=== PATIENT | male | born 1935 | race Caucasian/White ===

== ENCOUNTER 2022-12-21 15:41 | Observation (INO) | payer MEDICARE, SELFPAY ==
[2022-12-21] VITALS (9 sets, daily range): BP systolic 173–186; BP diastolic 84–87; PULSE 63–80; RESP 15–20; TEMP 36.2–36.8; O2SAT 94–98; BMI 25.9; BMI 25.2
--- NOTE | 2022-12-21 15:48 | ED.RN ---
Dr. Varma updated on pt denying any sym at this time. No stroke alert called.
--- NOTE | 2022-12-21 16:11 | CT_ITS ---
We are attempting to reach an attending provider to discuss findings. An addendum with communication details will be sent when the communication is complete. INDICATION: Neuro deficit, acute, stroke suspected EXAMINATION: CT BRAIN - CT Head Stroke Protocol W/O Contrast Injection TECHNIQUE: Multiple axial images were obtained of the head without intravenous contrast. A radiation dose optimization technique was used for this scan. IV Contrast dosage and agent: None. COMPARISON: No relevant prior comparison study available FINDINGS: There is no definite acute abnormality. There is diffuse mild symmetric atrophy. There is atrophy of the posterior fossa structures. There is diffuse small vessel ischemic disease of the white matter. There are stable bilateral lacunar infarcts. There is no definite acute infarct. There is no bleed. There is no gross mass, mass effect, or midline shift. There is no acute abnormality of the skull. No fractures. Grossly normal orbits. Grossly normal sinuses. CT/STROKE Brain/Head without Cont IMPRESSION: Chronic age related changes and atrophy. No acute abnormality. Electronically Signed: Tim Ng MD at 17:38 EDT ,
--- NOTE | 2022-12-21 16:11 | EKG12_ITS ---
Test Reason : Blood Pressure : / mmHG Vent. Rate : 077 BPM Atrial Rate : 077 BPM P-R Int : 234 ms QRS Dur : 108 ms QT Int : 356 ms P-R-T Axes : 054 -23 048 degrees QTc Int : 402 ms Sinus rhythm with 1st degree A-V block Minimal voltage criteria for LVH, may be normal variant ( [place] product ) Borderline ECG Confirmed by BRENTON BOLTON, MILAGROS ([id number]), society editor ALMA ARREDONDO ([id number]) on 12/23/2022 1:17:00 PM Referred By: Confirmed By:MILAGROS FARRIS MD
[2022-12-21 16:12] LABS: Bedside Glucose 100 mg/dL (74-106)
--- NOTE | 2022-12-21 16:12 | CT_ITS ---
STUDY: CTA HEAD AND NECK WITH CONTRAST REASON FOR EXAM: Male, 87 years old. Neuro deficit, acute, stroke suspected RADIATION DOSAGE (If Supplied By Facility): CTDIvol = ( 19.98 ) mGy, DLP = ( 705.72 ) mGycm TECHNIQUE: CT angiography was performed with a multi-detector CT scanner. Data acquisition was obtained from the skull base through the vertex following intravenous administration of IV 100mL Isovue-370. MIP images were reconstructed from the axial data set. Post-processing of the angiographic images was performed, with multiplanar reformation and 3D reconstruction. Individualized dose optimization techniques were used for this CT. COMPARISON: No relevant priors. FINDINGS: Normal bilateral petrous carotid arteries. There is calcified plaque formation of the right cavernous carotid artery, with a mild stenosis (less than 50%). There is calcified plaque formation of the left cavernous carotid artery, with a mild stenosis (less than 50%). Normal right A1 segments of the anterior cerebral artery. Normal left A1 segments of the anterior cerebral artery. Normal intact anterior communicating artery (ACOM). Normal bilateral A2 segments of the anterior cerebral arteries. Normal right M1 and M2 segments of the middle cerebral arteries, with a normal M1 bifurcation. Normal left M1 and M2 segments of the middle cerebral arteries, with a normal M1 bifurcation. Normal right posterior communicating artery (PCOM). Normal left posterior communicating artery (PCOM). Normal bilateral vertebral arteries. Normal basilar artery with a normal basilar bifurcation. The visualized bilateral superior cerebellar (SCA) arteries are normal. Normal bilateral P1, P2 and visualized P3 segments of the posterior cerebral arteries. There is no demonstrated aneurysm of the [place]. There is no demonstrated abnormality of the visualized brain. AORTIC ARCH: Normal visualized aortic arch. Normal origins of the brachiocephalic, left common carotid, and left subclavian arteries. RIGHT CAROTID ARTERIES: Normal right common carotid artery (CCA). There is moderate atherosclerotic plaque formation with moderate narrowing of the right carotid bulb. There is mild atherosclerotic plaque formation of the origin of the right internal carotid artery with less than 50% cross sectional diameter stenosis. There is atherosclerotic tortuous elongation of the cervical portion of the right internal carotid artery. Normal origin of the right external carotid artery (ECA). LEFT CAROTID ARTERIES: Normal left common carotid artery (CCA). There is moderate atherosclerotic plaque formation with moderate narrowing of the carotid bulb. There is moderate atherosclerotic plaque formation of the origin of the left internal carotid artery with an estimated stenosis of 50-69% stenosis. There is atherosclerotic tortuous elongation of the cervical portion of the left internal carotid artery. Normal origin of the left external carotid artery (ECA). VERTEBRAL ARTERIES: Normal bilateral vertebral arteries. CT/STROKE CTA Head AND Neck W/Con IMPRESSION: No acute abnormality. No large vessel occlusion. 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 Moderate to marked plaque with moderate grade stenosis of the left ICA. N.B. : The above Results were Read Back by Tim Ng MD to Jose Haney MD, and understanding confirmed on 12/21/2022 17:40:58 (ET). Electronically Signed: Tim Ng MD at 17:41 EDT ,
--- NOTE | 2022-12-21 16:18 | EDS_ITS ---
HPI History of Present Illness Chief Complaint: Numb/Ting Informant: patient Narrative Narrative: Presents after an episode of visual change and then later he had numbness of his left upper extremity. Both of the above symptoms are resolved and he feels completely back to normal. Patient states that a little bit before noon today he had a little bit of blurring in both of his vision. He has glaucoma on the right and a cataract in his left. He states he gets episodes of this blurry vision pretty much every day. It lasts for 10 or 15 minutes. It may be related to a rise in blood sugar after eating. He states this was the same as every other day. However, approximately 230 this afternoon he just felt a tingling sensation in his body. There was no pain or trouble breathing. He noticed his left arm really had lost most of its sensation. His right arm was fine. And both legs were fine. He states he can move his left arm but it did not have normal sensation. He thinks that lasted about 20 or so minutes maybe 30 but he is not 100% sure when it started. But he states it is gone now and back to normal. He has had a TIA about 5 years ago. He was on baby aspirin for a long time but he has been off of it for about 6 months. He is on amlodipine for blood pressure. He is on terazosin. He is diet controlled diabetic. Not check his blood sugars. [facility] Medical History Diabetes Glaucoma HTN (hypertension) TIA (transient ischemic attack) Umbilical hernia Home Medications amlodipine 5 mg tablet 5 mg PO DAILY 01/26/15 [History Last Taken 02/02/15 06:00] terazosin 2 mg capsule 2 mg PO QHS 01/26/15 [History Last Taken Unknown] multivitamin,ln-kham-nseqibwz 27 mg-0.4 mg tablet (Therems-M) 1 tab PO DAILY 02/02/15 [History Last Taken Unknown] Allergy/AdvReac Type Severity Reaction Status Date / Time No Known Allergies Allergy Verified 12/21/22 15:43 Family History no significant family his Surgical History H/O hernia repair H/O vein stripping Hx of cholecystectomy Social History household members: spouse housing: house Smoking Status: Former smoker ROS ROS ED Constitutional Constitutional ED: Denies chills, fever(s) or subjective Eyes Eyes: Reports blurry vision; Denies change in vision or diplopia ENT ENT ED: Denies rhinorrhea Cardiovascular Cardiovascular: Denies chest pain, palpitations or racing heartbeat Respiratory/Chest Respiratory/Chest: Denies cough or dyspnea Gastrointestinal Gastrointestinal: Denies nausea or vomiting Genitourinary Genitourinary ED: Denies hematuria Musculoskeletal Musculoskeletal: Denies back pain or neck pain Integumentary Denies rash Neurologic Neurologic: Reports paresthesias; Denies headache(s) or weakness Endocrine Endocrinology: Denies polydipsia or polyuria Hematologic/Lymphatic Hematologic/Lymphatic: Denies easy bleeding or easy bruising Allergic/Immunologic Allergic/Immunologic ED: Denies urticaria EXAM Physical Exam Narrative Exam Narrative: CONSTITUTIONAL: Patient is nontoxic in appearance. The patient looks comfortable. Work of breathing looks normal. He is mildly hard of hearing. He is sitting comfortably on the bed and very interactive. HEENT: No notable trauma. Mucous membranes moist. No sinus tenderness. 3. He can smile and closes eyes normally. EYES: No conjunctival injection. No proptosis. No pain with range of motion. No pallor. Mostly his visual mares are normal. NECK: No meningismus. No JVD. Hear carotid bruit on either side. CARDIOVASCULAR: Regular rate. Regular rhythm. I hear no notable murmur. No JVD. RESPIRATORY: No respiratory distress. Breathing is unlabored. No wheezes. No rhonchi. No rales. No pain with a deep breath. Saturations are normal at 97% on room air showing no hypoxia. GASTROINTESTINAL: Not distended. Bowel sounds are normal. No tenderness. No guarding. No rebound. No palpable mass. No bruit. GENITOURINARY: No tenderness over the bladder. No CVA tenderness. MUSCULOSKELETAL: Atraumatic. No peripheral edema. No cord. No tenderness along the deep venous system. No asymmetry. NEUROLOGICAL: Patient is alert and oriented. No focal deficit noted. NIH stroke scale is 0. Patient holds both arms up with excellent strength. He can hold either leg up very high in the area without any difficulty. I get no sensory changes or asymmetry at this time. His exam is really normal. But his symptoms are also resolved. SKIN: No noted rashes. No diaphoresis. No vesicles noted. No notable pallor. PSYCHIATRIC: Patient is calm. Mood is appropriate. Const Vital Signs: 12/21/22 15:43 12/21/22 15:50 12/21/22 16:15 Temperature 97.2 F L Temperature Source Temporal Pulse Rate 79 80 Respiratory Rate 18 15 Blood Pressure 173/84 H Blood Pressure Mean 113 Pulse Ox 97 97 97 Oxygen Delivery Method Room Air Room Air Room Air 12/21/22 16:42 12/21/22 17:00 Temperature Temperature Source Pulse Rate 68 72 Respiratory Rate 16 18 Blood Pressure Blood Pressure Mean Pulse Ox 98 97 Oxygen Delivery Method Room Air Room Air MDM MDM MDM Narrative Medical decision making narrative: Patient CBC is normal. Patient's electrolytes are normal. Patient's troponin is negative. Patient's glucose was also normal. My independent interpretation of his CT shows no acute stroke but there are age- related changes. This is read as negative for acute process by radiology. Patient CTA is negative for acute process by radiology. Single view chest x-ray interpreted by me shows nothing acute and this is consistent with final reading. This patient is resolved now. But he has a history of high blood pressure, diet-controlled diabetes and age. He has had prior TIA. He is now off aspirin. He had what sounds like a TIA with transient left upper extremity numbness. I think his visual changes were his chronic changes. I have hospitalist on page to discuss admission. Although this patient is older and has had some of the symptoms it has been many years. And he is overall a very healthy and active 87-year-old male who could benefit from further therapy if needed. Lab Data Attestation: I reviewed the patient's lab results. Labs: Laboratory Results - last 24 hr 12/21/22 12/21/22 15:53 15:55 WBC 5.1 RBC 5.31 Hgb 16.0 Hct 46.7 MCV 87.9 MCH 30.1 MCHC 34.3 RDW Std Deviation 42.0 RDW Coeff of Jesus 12.9 Plt Count 151 MPV 9.6 Immature Gran % (Auto) 0.600 Neut % (Auto) 67.1 Lymph % (Auto) 21.1 [place] % (Auto) 9.6 Eos % (Auto) 0.8 Baso % (Auto) 0.8 Absolute Neuts (auto) 3.4 Absolute Lymphs (auto) 1.08 Nucleated RBC % 0 PT 13.5 INR 1.0 APTT 32.2 Sodium 136 Potassium 4.0 Chloride 104 Carbon Dioxide 26.0 Anion Gap 6 BUN 17 Creatinine 1.26 Estim Creat Clear Calc 43.45 Est GFR (MDRD) Af Amer 70 Est GFR (MDRD) Non-Af 58 L BUN/Creatinine Ratio 13.5 Glucose 93 Calcium 9.0 Troponin I High Sens 6 POC Glucose 100 Radiography Diagnostic Testing: Clinical Impression(s) from Imaging Studies Brain CT 12/21/22 16:11 IMPRESSION: Chronic age related changes and atrophy. No acute abnormality. Electronically Signed: Tim Ng MD at 17:38 EDT Reading Location ID and State: [address] [place] [address] , Service support , ADDENDUM: 12/21/22 1747 IMPRESSION: Chronic age related changes and atrophy. No acute abnormality. N.B. : The above Results were Read Back by Tim Ng MD to Jose Haney MD, and understanding confirmed on 12/21/2022 17:41:04 (ET). Electronically Signed: Tim Ng MD at 17:38 EDT Reading Location ID and State: [address] [place] [address] , Service support , Head/Neck CTA 12/21/22 16:12 IMPRESSION: No acute abnormality. No large vessel occlusion. 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 Moderate to marked plaque with moderate grade stenosis of the left ICA. N.B. : The above Results were Read Back by Tim Ng MD to Jose Haney MD, and understanding confirmed on 12/21/2022 17:40:58 (ET). Electronically Signed: Tim Ng MD at 17:41 EDT Reading Location ID and State: [facility] / [place] , Service support , ADDENDUM: 12/21/22 1748 IMPRESSION: No acute abnormality. No large vessel occlusion. 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 Moderate to marked plaque with moderate grade stenosis of the left ICA. N.B. : The above Results were Read Back by Tim Ng MD to Jose Haney MD, and understanding confirmed on 12/21/2022 17:40:58 (ET). Electronically Signed: Tim Ng MD at 17:41 EDT , Chest X-Ray 12/21/22 17:00 IMPRESSION: No definite acute or significant abnormality seen. Electronically Signed: Tim Ng MD at 17:15 EDT , EKG Initial EKG: Comments: Plan up and interpretation the patient's EKG shows a normal sinus rhythm with first-degree AV block. Mild baseline variation but no ectopy. No acute ST elevation or depression. There may be a component of LVH. GA interval is long. QRS duration and QTc are normal. Discharge Plan Dx/Rx/DC Orders Clinical Impression: History of diet-controlled diabetes, Brain TIA, History of hypertension, History of TIAs Disposition Disposition: Acute Care Hospital [facility]
[2022-12-21 16:27] LABS: Absolute Lymphocyte Count 1.08 X10^3/uL (0.83-4.51); Absolute Neutrophil Count 3.4 X10^3/uL (2.0-7.7); Basophil# 0.04 X10^3/uL; Basophil% 0.8 % (0-1); Eosinophil# 0.04 X10^3/uL; Eosinophils% 0.8 % (0-5); Hematocrit 46.7 % (40-54); Lymphocyte # 1.08 X10^3/ul (0.83-4.51); Lymphocyte % 21.1 % (19-41); Mean Corp Hgb Conc 34.3 g/dL (32-36); Mean Corpuscular Hgb 30.1 pg (27.0-32.0); Mean Corpuscular Volume 87.9 fL (80-94); Mean Platelet Vol. 9.6 fl (6.2-12.0); Monocyte# 0.49 X10^3/uL; Monocyte% 9.6 % (0-10); NRBC Flagged by Analyzer 0 % (0-5); Neutrophil # 3.43 X10^3/uL (2.7-7.7); Neutrophil % 67.1 % (47-70); Platelet Count 151 K/mm3 (150-450); RBC Distribution Width CV 12.9 % (11.6-14.6); Red Blood Count 5.31 M/mm3 (4.6-6.2); White Blood Count 5.1 K/mm3 (4.4-11.0)
[2022-12-21 16:31] LABS: Partial Thromboplast Time 32.2 Seconds (24.1-36.2); Prothrombin Time (Protime)PT. 13.5 SECONDS (11.7-14.9)
[2022-12-21 16:45] LABS: Anion Gap 6 (5-15); BUN 17 mg/dL (7-18); BUN/Creat Ratio 13.5 RATIO (10-20); Chloride 104 mmol/L (98-107); Creatinine, Serum 1.26 mg/dL (0.70-1.30); EST Glomerular Filtration Rate 58 mL/min (>60); Est Glom Filt Rate - Afr Amer 70 mL/min (>60); Estimated Creatinine Clearance 43.45 ml/min; Glucose 93 mg/dL (74-106); Sodium Level 136 mmol/L (136-145); Troponin-I HS 6 pg/mL (3.0-78.0)
--- NOTE | 2022-12-21 17:00 | RAD_ITS ---
STUDY: X-RAY CHEST REASON FOR EXAM: Male, 87 years old. Neuro deficit, acute, stroke suspected TECHNIQUE: Single AP portable view of the chest. COMPARISON: None. FINDINGS: The lungs are clear and expanded. There is no demonstrated pleural abnormality. Normal size heart. There are calcified mediastinal lymph nodes. Normal visualized pulmonary arteries. There is atherosclerotic calcification of the aortic arch with tortuosity. Normal visualized thoracic spine. Normal visualized ribs, clavicles, and shoulders. There is no demonstrated abnormality of the visualized soft tissue structures of the upper abdomen. RAD/Chest 1 View IMPRESSION: No definite acute or significant abnormality seen. Electronically Signed: Tim Ng MD at 17:15 EDT ,
--- NOTE | 2022-12-21 19:09 | HP.PCM.HOS_ITS ---
HPI - General General Date of Admission: 12/21/22 Date of Service: 12/21/22 Chief Complaint: Chronic visions issues, but new onset LUE paresthesias, resolved now. HPI Narrative The patient is an 87 y/o M w/ PMHx: AIMEE unable to tolerate CPAP, Former tobacco use, HTN, HLD, Hx TIA, Diet controlled Diabetes mellitus type II who presents to the [facility] ED on 12/21/22 with history of episode of visual changes which resolved within onset later paresthesias to the left upper extremity described as numbness which itself also resolved with description of at approximately noon onset of mild blurring of his vision in both eyes with history of glaucoma on the right and a cataract in his left with episodes of blurry vision pretty much daily however this lasted 10 to 15 minutes and he is concerned maybe it was related with a rise in his blood sugar after eating however he did have then onset which is new for him at approximately 2:30 in the afternoon a tingling sensation in his body with left upper extremity decree sensation with ability to move his left arm but the sensation was abnormal with no other focal changes lasting about 20 to 30 minutes and eventually resolved with back to his normal baseline reportedly off a baby aspirin for at least 6 months but compliant with his blood pressure medications but not checking blood sugars prompting eventual ED evaluation. Work-up in the ED included T97.2, heart rate 79, BP 173/84, respiratory rate 18, 97% on room air, CBC with WC 5.1, and 116, platelet 151 without marked shift, unremarkable coags, BMP not marked appearing, troponin 6, CT of the brain with chronic age related changes and atrophy with no acute intracranial findings, CTA head and neck with no acute abnormality nor any large vessel occlusion, moderate plaque with mild grade stenosis of the right ICA, moderate to marked plaque with moderate grade stenosis of the left ICA, chest x- ray with no acute cardiopulmonary findings, EKG with sinus rhythm with first- degree AV block with no acute evidence of ischemia. In the ED per discussion with ED physician patient administered FS ASA. [facility] Medical History (Updated 12/21/22 @ 19:[address] Calrita Em MD) Former tobacco use Glaucoma History of diet-controlled diabetes HLD (hyperlipidemia) HTN (hypertension) AIMEE (obstructive sleep apnea) TIA (transient ischemic attack) Umbilical hernia Home Medications amlodipine 5 mg tablet 5 mg PO DAILY 01/26/15 [History Last Taken 02/02/15 06:00] terazosin 2 mg capsule 2 mg PO QHS 01/26/15 [History Last Taken Unknown] multivitamin,[id number] 27 mg-0.4 mg tablet (Therems-M) 1 tab PO DAILY 02/02/15 [History Last Taken Unknown] Allergy/AdvReac Type Severity Reaction Status Date / Time No Known Allergies Allergy Verified 12/21/22 15:43 Family History (Updated 12/21/22 @ 19:[address] Carlita Em MD) Mother Hypertension Diabetes Uterine cancer Brother CAD (coronary artery disease) Heart disease Hypertension Family History no significant family his other (Patient did not know his father nor his paternal medical history.) Surgical History (Updated 12/21/22 @ 19:[address] Carlita Em MD) H/O hernia repair H/O vein stripping History of skin surgery Hx of cholecystectomy Social History (Updated 12/21/22 @ 19:[address] Carlita Em MD) household members: none housing: house Smoking Status: Former smoker how long ago did patient quit smokin04/17/1968 alcohol intake: never substance use type: does not use ROS ROS Narrative Admission Review of Systems: CONSTITUTIONAL: No weight loss, fever, chills, weakness or fatigue. HEENT: + Chronic vision changes/blurry vision. Eyes: No double vision or yellow sclerae. Ears, Nose, Throat: No hearing loss, sneezing, congestion, runny nose or sore throat. SKIN: No rash or itching, lesions, wounds. CARDIOVASCULAR: No chest pain, chest pressure or chest discomfort, palpitations, edema, orthopnea, syncopal events. RESPIRATORY: No shortness of breath, cough or sputum, wheezing, hemoptysis. GASTROINTESTINAL: No anorexia, nausea, vomiting or diarrhea, abdominal pain, melena, BRBPR. GENITOURINARY: No dysuria, frequency, urgency or retention. NEUROLOGICAL: + Transient LUE paresthesias/numbness. No headache, dizziness, syncope, paralysis, ataxia, focal weakness, change in bowel or bladder control, seizure. MUSCULOSKELETAL: + muscle, back pain, joint pain or stiffness. HEMATOLOGIC: + Easy bleeding or bruising. LYMPHATICS: No enlarged nodes. No history of splenectomy. PSYCHIATRIC: No history of depression or anxiety. ENDOCRINOLOGIC: No reports of sweating, cold or heat intolerance. No polyuria or polydipsia. ALLERGIES: No history of asthma, hives, eczema or rhinitis. Vital Signs Vital Signs Vital Signs: 12/21/22 15:43 12/21/22 15:50 12/21/22 16:15 Temperature 97.2 F L Temperature Source Temporal Pulse Rate 79 80 Respiratory Rate 18 15 Blood Pressure 173/84 H Blood Pressure Mean 113 Pulse Ox 97 97 97 Oxygen Delivery Method Room Air Room Air Room Air 12/21/22 16:42 12/21/22 17:00 Temperature Temperature Source Pulse Rate 68 72 Respiratory Rate 16 18 Blood Pressure Blood Pressure Mean Pulse Ox 98 97 Oxygen Delivery Method Room Air Room Air Weight Weight: 180 lb 14.4 oz Body Mass Index (BMI) 25.9 Physical Exam Narrative Physical Examination: General: Awake, alert, oriented x 3 and cooperative, seated upright in the ED bed in no apparent distress, reports that he is back to his normal still. Skin: Normal color, normal turgor, no icterus, no cyanosis except occasional st aged ecchymoses and changes from sun exposure. HEENT: AT/NC, EOMI, PERRLA, mildly dry MM, no carotid bruits or JVD noted. Lungs: CTA bilaterally, moderate effort, mild decrease BL bases, no rales, ro nchi or wheezing. Heart: Regular rate and rhythm; no gallop, rub audible. Abdomen: Soft, ventral hernia present but reducible, NTTP, ND, normal BS, no obvious evidence of HSM. Extremities: No cyanosis, clubbing, or edema. Neurological: Patient awake, alert, oriented as noted, cognitive function inta ct; pupils equally reactive to light and accommodation, cranial nerves grossly normal, moving all 4 extremities, sensation appropriate and equivalent bilaterally, no focal deficits, strength preserved, finger-nose and [id number] appropriate, equivocal Babinski. Psychiatric: Affect appears normal, talkative, no acute evidence of depressive or anxiety feelings. Results Lab / Micro Data 12/21/22 15:55 12/21/22 15:55 Labs: Laboratory Results - last 24 hr 12/21/22 15:53: POC Glucose 100 12/21/22 15:55: WBC 5.1, RBC 5.31, Hgb 16.0, Hct 46.7, MCV 87.9, MCH 30.1, MCHC 34.3, RDW Std Deviation 42.0, RDW Coeff of Jesus 12.9, Plt Count 151, MPV 9.6, Immature Gran % (Auto) 0.600, Neut % (Auto) 67.1, Lymph % (Auto) 21.1, Grady % (Auto) 9.6, Eos % (Auto) 0.8, Baso % (Auto) 0.8, Absolute Neuts (auto) 3.4, Abso lute Lymphs (auto) 1.08, Nucleated RBC % 0, PT 13.5, INR 1.0, APTT 32.2, Sodium 136, Potassium 4.0, Chloride 104, Carbon Dioxide 26.0, Anion Gap 6, BUN 17, Creatinine 1.26, Estim Creat Clear Calc 43.45, Est GFR (MDRD) Af Amer 70, Est GFR (MDRD) Non-Af 58 L, BUN/Creatinine Ratio 13.5, Glucose 93, Calcium 9.0, Troponin I High Sens [address] 12/21/22 16:11 IMPRESSION: Chronic age related changes and atrophy. No acute abnormality. Electronically Signed: Tim Ng MD at 17:38 EDT , ADDENDUM: 12/21/22 1747 IMPRESSION: Chronic age related changes and atrophy. No acute abnormality. N.B. : The above Results were Read Back by Tim Ng MD to Jose Haney MD, and understanding confirmed on 12/21/2022 17:41:04 (ET). Electronically Signed: Tim Ng MD at 17:38 EDT , Head/Neck CTA 12/21/22 16:12 IMPRESSION: No acute abnormality. No large vessel occlusion. 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 Moderate to marked plaque with moderate grade stenosis of the left ICA. N.B. : The above Results were Read Back by Tim Ng MD to Jose Haney MD, and understanding confirmed on 12/21/2022 17:40:58 (ET). Electronically Signed: Tim Ng MD at 17:41 EDT , ADDENDUM: 12/21/22 1748 IMPRESSION: No acute abnormality. No large vessel occlusion. 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 Moderate to marked plaque with moderate grade stenosis of the left ICA. N.B. : The above Results were Read Back by Tim Ng MD to Jose Haney MD, and understanding confirmed on 12/21/2022 17:40:58 (ET). Electronically Signed: Tim Ng MD at 17:41 EDT , Chest X-Ray 12/21/22 17:00 IMPRESSION: No definite acute or significant abnormality seen. Electronically Signed: Tim Ng MD at 17:15 EDT , Assessment & Plan Assessment/Plan (1) Brain TIA: PLAN: Plan The patient is an 87 y/o M w/ PMHx: AIMEE unable to tolerate CPAP, Former tobacco use, HTN, Hx TIA, Diet controlled Diabetes mellitus type II who presents to the [facility] ED on 12/21/22 with history of episode of visual changes which resolved within onset later paresthesias to the left upper extremity described as numbness which itself also resolved. #1. Transient left upper extremity paresthesias, chronic vision blurriness with right eye glaucoma and cataract in the left unchanged but concerning for recurrent TIA, resolved with noted BL carotid disease: Will admit to PCU, will obtain MRI Brain, ECHO, PT/OT/Speech/Nutrition evaluation per protocol. Will allow permissive HTN, maintain on asa with FS aspirin administered in the ED per discussion with ED physician, initiate at least low to moderate statin w/ AM FLP, fall precautions. Will request carotid US to further assess and if notable request potentially inpatient consultation with Vascular surgery versus early outpatient follow-up to assure addressed. Will obtain Mag, TSH, FLP, HgbA1c requested. Maintain on fall and aspiration precautions. #2. Hypertension: Given presentation as noted we will maintain permissive hyper tension with parent agents per stroke protocol. #3. Diabetes mellitus type II, diet controlled: Not on regimen but diet controlled, hemo-A1c requested, nutrition consultation for education and teach ing, ADA diet, accu checks w/ ISS. #4. Former tobacco use: Encourage continued tobacco cessation. #5. Hyperlipidemia not on statin, will add at least moderate dose given presentation and history, FLP in AM. #6. AIMEE: Previous trial of CPAP, unable to tolerate per his report. #7. DVT prophylaxis: Lovenox. #8. CODE status: Patient MARGUERITE is his son Bakari Molina and living will is currently in place. Discussed CODE status at length including difference between FULL code, DNR-CCA and DNR-CC status. Following discussions about the differences in these status, requested DNR-CCA, no intubation status. Advanced Care Planning Face to Face Time: 16 minutes. Charges/Coding Visit Charges Inpatient E&M: 77872 Init Hosp L2 Procedures Hospitalists Procedures: 34804 Advncd Care Plan 30 Min
[2022-12-21 19:30] LABS: Magnesium 2.5 mg/dL (1.6-2.6)
[2022-12-21] MEDS: Aspirin 325 MG Tablet PO (19:55)
--- NOTE | 2022-12-21 20:13 | CDU_ITS ---
Reason For Study: CVA with carotid stenosis Rt. Velocities/BP Lt. Velocities/BP Prox CCA 91.9/9.7 cm/sec. Prox CCA 77.8/7.8 cm/sec. Mid CCA 72.1/9.7 cm/sec. Mid CCA 85.3/11.6 cm/sec. Dist CCA 71.1/9.7 cm/sec. Dist CCA 74.0/8.8 cm/sec. Prox ICA 48.5/7.8 cm/sec. Prox ICA 74.9/9.7 cm/sec. Mid ICA 72.1/13.5 cm/sec. Mid ICA 70.5/9.8 cm/sec. Dist ICA 63.6/14.5 cm/sec. Dist ICA 49.9/9.2 cm/sec. Rt. ICA/CCA = 1.0. Lt. ICA/CCA = .9. Prox ECA 93.8/5.0 cm/sec. Prox ECA 155.7/9.2 cm/sec. Rt. Vert. 57.9/6.0 cm/sec. Lt. Vert. 54.1/7.8 cm/sec. Right Extracranial There is heterogeneous, irregular atherosclerotic plaque noted in the right common carotid artery. There is heterogeneous, irregular atherosclerotic plaque noted in the right internal carotid artery. The right internal carotid artery is very tortuous. There is heterogeneous, irregular atherosclerotic plaque noted in the right external carotid artery. Antegrade flow is noted in the right vertebral artery. Left Extracranial There is heterogeneous, irregular atherosclerotic plaque noted in the left common carotid artery. There is heterogeneous, irregular atherosclerotic plaque noted in the left internal carotid artery. The left internal carotid artery is very tortuous. There is heterogeneous, irregular atherosclerotic plaque noted in the left external carotid artery. Antegrade flow is noted in the left vertebral artery. Procedure Carotid Duplex 36974. This is a Carotid Duplex examination using B-mode, color flow and specral Doppler. The exam was diagnostic. Exam performed portable in patient room. VL/Carotid Duplex Ultrasound Interpretation Summary Mild (<50%) stenosis right extracranial internal carotid. Mild (<50%) stenosis left extracranial internal carotid. Patent and antegrade vertebrals bilaterally. Ordering Physician: Carlita Em Performed By: Power Zamorano RVT
--- NOTE | 2022-12-21 20:13 | ECHOD_ITS ---
Reason For Study: TIA/CVA Procedure This was a 2D Doppler, Color Flow transthoracic echocardiogram. Exam performed portable in patient room. Left Ventricle Normal left ventricle. The estimated ejection fraction is 55-60 %. Right Ventricle Normal right ventricle. Normal systolic function. Atria Normal left atrium. Normal right atrium. Mitral Valve There is moderate mitral annular calcification. Trivial mitral valve insufficiency. Tricuspid Valve Normal tricuspid valve. Aortic Valve Mild diffuse aortic valve calcification. Pulmonic Valve The pulmonic valve is not well visualized. Great Vessels Normal aortic root. Pericardium/Pleural No pericardial effusion. Medication Performed a rapid injection of agitated mix of 9 cc saline and 1cc air to assess for atrial septal defect. MMode/2D Measurements & Calculations LVIDd: 4.2 cm IVSd: 1.4 cm Ao root diam: 3.1 cm LVIDs: 2.6 cm LVPWd: 1.1 cm RVDd: 2.9 cm FS: 37.6 % LAV(MOD-bp): 37.8 ml LA A4 area: 13.3 cm2 LA dimension(2D): 3.5 cm LAV(MOD-bp) Indexed: 18.9 ml/m2 LAV(MOD-sp2): 38.4 ml LAV(MOD-sp4): 30.8 ml RA A4 area: 16.0 cm2 Time Measurements MV dec time: 0.27 sec Doppler Measurements & Calculations MV E max pedro: 63.3 cm/sec Lat Peak E' Pedro: 9.3 cm/sec Med Peak E' Pedro: 5.1 cm/sec MV A max pedro: 92.5 cm/sec E/E' lat: 6.8 E/E' med: 12.4 MV E/A: 0.68 MV V2 max: 95.0 cm/sec MV dec slope: 235.2 cm/sec2 Ao V2 max: 130.4 cm/sec MV max P.6 mmHg Ao max P.8 mmHg MV V2 mean: 51.7 cm/sec Ao V2 mean: 90.2 cm/sec MV mean P.3 mmHg Ao mean P.7 mmHg MV V2 VTI: 27.2 cm Ao V2 VTI: 31.9 cm AV (velocity ratio): 0.67 LV V1 max: 80.9 cm/sec PA V2 max: 110.1 cm/sec LV V1 max P.6 mmHg LV V1 mean P.6 mmHg LV V1 mean: 60.0 cm/sec LV V1 VTI: 21.2 cm ECHO/Echo Complete Interpretation Summary The estimated ejection fraction is 55-60 %. Normal LV systolic function No prior study to compare Ordering Physician: Carlita Em Referring Physician: Cholo Friedman Performed By: Larisa Guzman, MIGUELINA, RVT
[2022-12-21] MEDS: 0.9% Normal Saline 1,000 ML 100 ML IV (21:01)
[2022-12-21] MEDS: 0.9% Saline Lock 10 ML Syringe IV (21:01)
[2022-12-21] MEDS: Atorvastatin Calcium 40 MG Tablet PO (22:18)
[2022-12-21 23:53] LABS: Bedside Glucose 117 mg/dL (74-106)
[2022-12-22] VITALS (7 sets, daily range): BP systolic 159–191; BP diastolic 79–87; PULSE 58–66; RESP 16–17; TEMP 36.1–36.9; O2SAT 95–98; BMI 25.2; BMI 25.1
[2022-12-22 06:18] LABS: Absolute Lymphocyte Count 0.93 X10^3/uL (0.83-4.51); Absolute Neutrophil Count 2.7 X10^3/uL (2.0-7.7); Basophil# 0.03 X10^3/uL; Basophil% 0.7 % (0-1); Eosinophil# 0.09 X10^3/uL; Eosinophils% 2.1 % (0-5); Hematocrit 44.9 % (40-54); Hemoglobin 14.9 g/dL (13.0-16.5); Lymphocyte # 0.93 X10^3/ul (0.83-4.51); Lymphocyte % 21.6 % (19-41); Mean Corp Hgb Conc 33.2 g/dL (32-36); Mean Corpuscular Hgb 29.3 pg (27.0-32.0); Mean Corpuscular Volume 88.4 fL (80-94); Mean Platelet Vol. 9.4 fl (6.2-12.0); Monocyte# 0.53 X10^3/uL; Monocyte% 12.3 % (0-10); NRBC Flagged by Analyzer 0 % (0-5); Neutrophil # 2.69 X10^3/uL (2.7-7.7); Neutrophil % 62.6 % (47-70); Platelet Count 150 K/mm3 (150-450); RBC Distribution Width CV 12.7 % (11.6-14.6); RBC Distribution Width SD 41.5 fl (35.1-43.9); Red Blood Count 5.08 M/mm3 (4.6-6.2); White Blood Count 4.3 K/mm3 (4.4-11.0)
[2022-12-22 06:56] LABS: ALB/GLOB Ratio 1.2 RATIO (0.9-2.4); AST(SGOT) 14 U/L (15-37); Alanine Aminotransfer ALT/SGPT 21 U/L (16-61); Albumin, Serum 3.3 g/dL (3.2-5.0); Alkaline Phosphatase 61 U/L (45-117); Anion Gap 3 (5-15); BUN 14 mg/dL (7-18); BUN/Creat Ratio 12.3 RATIO (10-20); Calcium,Total 8.4 mg/dL (8.5-10.1); Chloride 108 mmol/L (98-107); Cholesterol 162 mg/dL (200); Creatinine, Serum 1.14 mg/dL (0.70-1.30); EST Glomerular Filtration Rate 65 mL/min (>60); Est Glom Filt Rate - Afr Amer 78 mL/min (>60); Estimated Creatinine Clearance 48.03 ml/min; Globulin 2.8 g/dL (2.2-4.2); Glucose 104 mg/dL (74-106); High Density Lipoprotein 38 mg/dL; Potassium 3.9 mmol/L (3.5-5.1); Protein, Total 6.1 g/dL (6.4-8.2); Sodium Level 141 mmol/L (136-145); Thyroid Stim Hormone (TSH) 1.38 uIU/mL (0.358-3.74); Triglycerides 101 mg/dL; Very Low Density Lipoprotein 20 mg/dL (5-40)
[2022-12-22 07:53] LABS: Bedside Glucose 113 mg/dL (74-106)
[2022-12-22 08:13] LABS: Hemoglobin A1c 5.7 % (3.8-5.6)
--- NOTE | 2022-12-22 09:00 | MRI_ITS ---
EXAM: MR HEAD WITHOUT INTRAVENOUS CONTRAST CLINICAL INDICATION: CVA TECHNIQUE: Multiplanar and multisequence MR images of the brain were obtained without intravenous contrast. COMPARISON: CT head without contrast and CTA head and neck with contrast 12/21/2022. FINDINGS: BRAIN AND EXTRA-AXIAL SPACES: Multiple T2 FLAIR hyperintensity foci in the white matter of both cerebral hemispheres are chronic white matter ischemic changes. No intra- or extra-axial hemorrhage. No intracranial mass or mass effect. Posterior fossa structures are unremarkable. Ventricles are appropriate for age. No hydrocephalus. Basal cisterns are patent. No diffusion restriction to suspect acute or subacute ischemic infarct. No remote cortical-based ischemic infarct. SELLA: Unremarkable. Normal sella turcica, pituitary gland, infundibular stalk, optic chiasm and hypothalamus. AUDITORY SYSTEM: Unremarkable. The internal auditory canals are patent. BONES/JOINTS: Unremarkable. No discrete lytic or blastic abnormalities. SINUSES: Unremarkable as visualized. Clear. MASTOID AIR CELLS: Unremarkable as visualized. Clear. ORBITS: Unremarkable as visualized. Both globes, extraocular muscles, optic nerves and retrobulbar fat appear unremarkable. VASCULATURE: Unremarkable as visualized. Normal flow voids in the major intracranial circulation. MRI/Brain without Contrast IMPRESSION: 1. No MRI evidence of acute or subacute ischemic infarct or remote ischemic infarct. 2. Multiple chronic white matter ischemic changes in both cerebral hemispheres. Electronically Signed: John Dumas MD at 10:18 EDT ,
[2022-12-22] MEDS: amLODIPine 5 MG Tablet PO (11:38)
[2022-12-22] MEDS: Enoxaparin 40 MG/0.4 ML Syringe SC (11:38)
--- NOTE | 2022-12-22 12:06 | CHAPLAIN ---
Type of Pastoral Visit _x__ Initial Visit ___ Follow-up Visit ___ On-call Visit ___ General Patient Visit ___ Spiritual Assessment ___ Family Conference ___ Bereavement ___ Rapid Response ___ Code Blue ___ Other (describe below) Pastoral Care Referral From _x__ Patient ___ Family ___ Nurse ___ Physician ___ Hog Ribber ___ Aircraft Instrument Mechanic ___ Other (describe below) Sacrament/Intervention ___ Active listening ___ Anointing ___ Buddhism ___ Bereavement ___ Communion ___ Joanie exploration ___ ___ Life review ___ Prayer ___ Reconciliation ___ Sacrament of Sick _x__ Supportive presence ___ Wedding ___ Other (describe below) Pastoral Comments brief introduction to patient with explanation of role when three consecutive staff members came into room; therefore visit is halted due to others seeking time with patient
[2022-12-22 12:13] LABS: Bedside Glucose 100 mg/dL (74-106)
[2022-12-22] MEDS: Aspirin 81 MG TAB.CHEW PO (12:40)
--- NOTE | 2022-12-22 13:01 | CASEMGMT ---
SW completed a PHQ9 with patient as he may have had a TIA. Patient scored a 0 which indicates no depression. Patient declined any need for counseling resources. Eileen SCHROEDER
--- NOTE | 2022-12-22 16:12 | DCINST_ITS ---
Discharge Instructions Diet Discharge Diet: No restrictions Activity Discharge Activity: Return to Normal Activity Weight Bearing Status: Full weight bearing Follow Up Care Please Follow Up With: Cholo Friedman MD When: As needed Test Results: Test results from this visit will be discussed in further detail at your follow- up appointment, if applicable. Pending Tests Upon Discharge: None Discharge Plan Admission Admit Date/Time: 12/21/22 19:11 Primary Reason for Your Visit: Vision changes, CVA rule out Attending Provider: Tray Guevara Primary Care Provider: Cholo Friedman Consulting Providers: Carlita Em Instructions Additional Instructions / Restrictions: Please start taking aspirin daily and atorvastatin daily for stroke prevention. Follow-up with your primary care provider in the next 1 to 2 weeks. Follow-up with your event security officer as needed. Discharge Orders/Prescriptions Prescriptions: New atorvastatin 40 mg Tablet 40 mg PO QHS 30 Days Qty: 30 0RF aspirin 81 mg Tablet,Chewable 81 mg PO BREAKFAST 30 Days Qty: 30 0RF Continued amlodipine 5 MG tablet 5 mg PO DAILY Patient Comments: BLOOD PRESSURE terazosin 2 MG capsule 2 mg PO QHS Patient Comments: BLOOD PRESSURE Therems-M 1 TABLET tablet 1 tab PO DAILY Patient Comments: SUPPLEMENT Referrals / Follow Up: Cholo rFiedman MD [Primary Care Provider] - Disposition Disposition (needs filled in before D/C Order can be placed): Home, Self Care
--- NOTE | 2022-12-22 16:15 | DS.PCM_ITS ---
Providers Date of Admission: 12/21/22 Date of Discharge: 12/22/22 Primary Care Physician: Dr. Cholo Friedman MD Reason For Visit: TIA Diagnosis Discharge Diagnosis (1) Brain TIA: Status: Acute Code(s): G45.9 - Transient cerebral ischemic attack, unspecified Medications at Discharge Home Medications amlodipine 5 mg tablet 5 mg PO DAILY 01/26/15 terazosin 2 mg capsule 2 mg PO QHS 01/26/15 multivitamin,rw-niim-cgcxygho 27 mg-0.4 mg tablet (Therems-M) 1 tab PO DAILY 02/02/15 aspirin 81 mg chewable tablet 81 mg PO BREAKFAST 30 days #30 tabs 12/22/22 atorvastatin 40 mg tablet 40 mg PO QHS 30 days #30 tabs 12/22/22 Hospital Course Procedures EKG, Transthoracic echo and - (CT brain without contrast, CTA head/neck, MRI brain without contrast, carotid duplex, chest x-ray) Summary of Care Provided Minutes Spent on Discharge: 25 Hospital Course: Patient is an 87-year-old male with history of multiple TIAs, hypertension, glaucoma, former tobacco use disorder who presented to [facility] on 12/21/2022 with visual changes and concern for left upper extremity paresthesias. Primary hospital concern addressed as noted below. Visual changes and concern for LUE paresthesias, CVA ruled out: Patient presented with intermittent blurriness of his vision, as well as transient left upper extremity paresthesias. Notably has history of right eye glaucoma and left eye cataract, but stated this episode felt different than previous episodes of worsening of glaucoma. CT brain without contrast showed no acute abnormality. CTA head/neck showed known moderate plaque with moderate stenosis of the right ICA, moderate to marked plaque with high-grade stenosis of the left ICA, no acute abnormalities. Carotid ultrasound showed mild (less than 50%) stenoses of right and left external and general carotid arteries. MRI brain without contrast showed no evidence of acute or subacute ischemic infarct or remote ischemic infarct. TTE showed normal EF, no acute abnormalities. Lipid panel was fairly benign, hemoglobin A1c was 5.7%. Suspected that patient either had a small TIA, or had symptoms of unclear etiology. Symptoms were resolved by hospital day 2. Patient was initiated on aspirin and statin and discharged home in stable condition. Discharge diagnoses: ? Visual changes and concern for L UE paresthesias, CVA ruled out ? History of TIAs ? Hypertension ? 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 Total clinical time spent by myself addressing the patient's discharge needs: 25 minutes. Physical Exam Const alert, oriented x3, no apparent distress, average body habitus, healthy appearing and well nourished Constitutional Narrative: Pleasant elderly male, sitting comfortably in bed, conversing normally, no acute distress. General Appearance: cooperative, comfortable, well kempt and well developed HEENT normocephalic, head/scalp atraumatic, hearing grossly normal bilaterally, nasal mucous membranes and turbinates normal and moist oral mucous membranes Eyes PERRL, EOMs intact bilaterally and conjunctivae normal Neck full ROM, no lymphadenopathy and supple Lymph Lymphatic: no lymphadenopathy noted Chest inspection of chest normal Resp normal respiratory effort, normal air movement, no use of accessory muscles and clear to auscultation bilaterally Cardio regular rate, regular rhythm, no murmurs and peripheral pulses 2+ throughout GI normal to inspection, nondistended, normoactive bowel sounds, soft to palpation, non-tender and non-distended Back/Spine normal ROM Extremity normal to inspection, full ROM and no pedal edema Skin no rashes or lesions noted Neuro Neuro Narrative: No overt motor or sensory deficits noted. Psych mental status grossly normal Weight / BMI Weight Weight: 79.4 kg Body Mass Index (BMI) 25.1 ABG / Lab / Microbiology Data 12/22/22 05:37 12/22/22 05:37 Laboratory: Laboratory Results - last 24 hr 12/21/22 15:55: WBC 5.1, RBC 5.31, Hgb 16.0, Hct 46.7, MCV 87.9, MCH 30.1, MCHC 34.3, RDW Std Deviation 42.0, RDW Coeff of Jesus 12.9, Plt Count 151, MPV 9.6, Immature Gran % (Auto) 0.600, Neut % (Auto) 67.1, Lymph % (Auto) 21.1, [place] % (Auto) 9.6, Eos % (Auto) 0.8, Baso % (Auto) 0.8, Absolute Neuts (auto) 3.4, Absolute Lymphs (auto) 1.08, Nucleated RBC % 0, PT 13.5, INR 1.0, APTT 32.2, Sodium 136, Potassium 4.0, Chloride 104, Carbon Dioxide 26.0, Anion Gap 6, BUN 17, Creatinine 1.26, Estim Creat Clear Calc 43.45, Est GFR (MDRD) Af Amer 70, Est GFR (MDRD) Non-Af 58 L, BUN/Creatinine Ratio 13.5, Glucose 93, Calcium 9.0, Magnesium 2.5, Troponin I High Sens 6 12/21/22 21:03: POC Glucose 117 H 12/22/22 05:37: WBC 4.3 L, RBC 5.08, Hgb 14.9, Hct 44.9, MCV 88.4, MCH 29.3, MCHC 33.2, RDW Std Deviation 41.5, RDW Coeff of Jesus 12.7, Plt Count 150, MPV 9.4, Immature Gran % (Auto) 0.700, Neut % (Auto) 62.6, Lymph % (Auto) 21.6, [place] % (Auto) 12.3 H, Eos % (Auto) 2.1, Baso % (Auto) 0.7, Absolute Neuts (auto) 2.7, Absolute Lymphs (auto) 0.93, Nucleated RBC % 0, Sodium 141, Potassium 3.9, Chloride 108 H, Carbon Dioxide 30.0, Anion Gap 3 L, BUN 14, Creatinine 1.14, Estim Creat Clear Calc 48.03, Est GFR (MDRD) Af Amer 78, Est GFR (MDRD) Non-Af 65, BUN/Creatinine Ratio 12.3, Glucose 104, Hemoglobin A1c 5.7 H, Calcium 8.4 L, Total Bilirubin 0.80, AST 14 L, ALT 21, Alkaline Phosphatase 61, Total Protein 6.1 L, Albumin 3.3, Globulin 2.8, Albumin/Globulin Ratio 1.2, Triglycerides 101, Cholesterol 162, LDL Cholesterol 104, VLDL Cholesterol 20, HDL Cholesterol 38 L, TSH 1.38 12/22/22 06:40: POC Glucose 113 H 12/22/22 11:49: POC Glucose 100 Radiography Diagnostic Testing: Radiology Impression Brain CT 12/21/22 16:11 IMPRESSION: Chronic age related changes and atrophy. No acute abnormality. Electronically Signed: Tim Ng MD at 17:38 EDT , ADDENDUM: 12/21/22 1747 IMPRESSION: Chronic age related changes and atrophy. No acute abnormality. N.B. : The above Results were Read Back by Tim Ng MD to Jose Haney MD, and understanding confirmed on 12/21/2022 17:41:04 (ET). Electronically Signed: Tim Ng MD at 17:38 EDT , Head/Neck CTA 12/21/22 16:12 IMPRESSION: No acute abnormality. No large vessel occlusion. 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 Moderate to marked plaque with moderate grade stenosis of the left ICA. N.B. : The above Results were Read Back by Tim Ng MD to Jose Haney MD, and understanding confirmed on 12/21/2022 17:40:58 (ET). Electronically Signed: Tim Ng MD at 17:41 EDT Reading Location ID and State: [facility] / [place] , Service support , ADDENDUM: 12/21/22 1748 IMPRESSION: No acute abnormality. No large vessel occlusion. 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 Moderate to marked plaque with moderate grade stenosis of the left ICA. N.B. : The above Results were Read Back by Tim Ng MD to Jose Haney MD, and understanding confirmed on 12/21/2022 17:40:58 (ET). Electronically Signed: Tim Ng MD at 17:41 EDT , Chest X-Ray 12/21/22 17:00 IMPRESSION: No definite acute or significant abnormality seen. Electronically Signed: Tim Ng MD at 17:15 EDT , Carotid Duplex 12/21/22 20:13 Interpretation Summary Mild (<50%) stenosis right extracranial internal carotid. Mild (<50%) stenosis left extracranial internal carotid. Patent and antegrade vertebrals bilaterally. Ordering Physician: Carlita Em Performed By: Power Zamorano, RVT Echocardiogram 12/21/22 20:13 Interpretation Summary The estimated ejection fraction is 55-60 %. Normal LV systolic function No prior study to compare Ordering Physician: Carlita Em Referring Physician: Cholo Friedman Performed By: Larisa Guzman RDCS, RVT Brain MRI 12/22/22 09:00 IMPRESSION: 1. No MRI evidence of acute or subacute ischemic infarct or remote ischemic infarct. 2. Multiple chronic white matter ischemic changes in both cerebral hemispheres. Electronically Signed: John Dumas MD at 10:18 EDT , D/C Instructions Discharge Diet: No restrictions Weight Bearing Status: Full weight bearing Pending Tests Upon Discharge: None Please Follow Up With: Cholo Friedman MD When: As needed Meaningful Use Info Meaningful Use Diagnoses (Choose all that apply): None applicable Discharge Plan Admission Admit Date/Time: 12/21/22 19:11 Primary Reason for Your Visit: Vision changes, CVA rule out Attending Provider: Tray Guevara Primary Care Provider: Cholo Friedman Consulting Providers: Carlita Em Instructions Additional Instructions / Restrictions: Please start taking aspirin daily and atorvastatin daily for stroke prevention. Follow-up with your primary care provider in the next 1 to 2 weeks. Follow-up with your gunite nozzle operator as needed. Discharge Orders/Prescriptions Prescriptions: New atorvastatin 40 mg Tablet 40 mg PO QHS 30 Days Qty: 30 0RF aspirin 81 mg Tablet,Chewable 81 mg PO BREAKFAST 30 Days Qty: 30 0RF Continued amlodipine 5 MG tablet 5 mg PO DAILY Patient Comments: BLOOD PRESSURE terazosin 2 MG capsule 2 mg PO QHS Patient Comments: BLOOD PRESSURE Therems-M 1 TABLET tablet 1 tab PO DAILY Patient Comments: SUPPLEMENT Referrals / Follow Up: Cholo Friedman MD [Primary Care Provider] - Disposition Disposition (needs filled in before D/C Order can be placed): Home, Self Care Charges/Coding Visit Charges Inpatient E&M: 56024 Disch Hosp
[2022-12-22 18:29] LABS: Bedside Glucose 88 mg/dL (74-106)
== END 2022-12-22 16:15 | disposition home or self-care (01) ==
LOC: ED 18:49 → PCU 19:46
PROVIDERS: Admitting Provider Family Medicine; Emergency Provider Emergency Medicine; PCP Internal Medicine; Visit Provider Hospitalist
DX: G45.9 Transient cerebral ischemic attack, unspecified (principal); E11.39 Type 2 diabetes mellitus with other diabetic ophthalmic complication; H53.9 Unspecified visual disturbance; E78.5 Hyperlipidemia, unspecified; I10 Essential (primary) hypertension; H40.9 Unspecified glaucoma; Z87.891 Personal history of nicotine dependence; R20.0 Anesthesia of skin; Z79.899 Other long term (current) drug therapy; G47.33 Obstructive sleep apnea (adult) (pediatric); I44.0 Atrioventricular block, first degree
CPT/HCPCS: 36415; 70450; 70496; 70498; 70551; 71045; 80048; 80053; 80061; 82962; 83036; 83735; 84443; 84484; 85025; 85610; 85730; 93005; 93306; 93880; 94668; 94762; 96360; 96361; 96372; 97162; 97165; 97802; 99221; 99252; 99284; J7030; Q9967; A4216; G0378; G0463

== ENCOUNTER 2022-12-29 17:29 | Inpatient (IN) | payer MEDICARE, SELFPAY ==
[2022-12-29] VITALS (12 sets, daily range): BP systolic 152–179; BP diastolic 50–94; PULSE 77–89; RESP 13–19; TEMP 36.6–37; O2SAT 94–97; BMI 26.2; BMI 23.9
--- NOTE | 2022-12-29 17:39 | CT_ITS ---
We are attempting to reach an attending provider to discuss findings. An addendum with communication details will be sent when the communication is complete. INDICATION: Neuro deficit, acute, stroke suspected EXAMINATION: CT BRAIN - CT Head Stroke Protocol W/O Contrast Injection TECHNIQUE: Multiple axial images were obtained of the head without intravenous contrast. A radiation dose optimization technique was used for this scan. IV Contrast dosage and agent: None. COMPARISON: FINDINGS: BRAIN PARENCHYMA: No intra- or extra-axial hemorrhage. No evidence of acute infarct. No intracranial mass or mass effect. Bilateral periventricular white matter microangiopathic ischemic changes. Posterior fossa structures are unremarkable. CSF SPACES: Slightly prominent ventricles and extra-axial spaces with mild atrophy. No hydrocephalus. Basal cisterns are patent. CALVARIUM, SKULL BASE, PARANASAL SINUSES AND MASTOID AIR CELLS: Clear. No discrete lytic or blastic abnormalities. ORBITS: Both globes, extraocular muscles, optic nerves and retrobulbar fat appear unremarkable. CT/STROKE Brain/Head without Cont IMPRESSION: Age-related changes. Electronically Signed: Yves Hay DO at 18:11 EDT Reading Location ID and State: [facility] / [place] Tel [phone], Service support ,
--- NOTE | 2022-12-29 17:39 | EKG12_ITS ---
Test Reason : STROKE Blood Pressure : / mmHG Vent. Rate : 082 BPM Atrial Rate : 082 BPM P-R Int : 218 ms QRS Dur : 092 ms QT Int : 358 ms P-R-T Axes : 043 -20 030 degrees QTc Int : 418 ms Sinus rhythm with 1st degree A-V block Minimal voltage criteria for LVH, may be normal variant ( R in aVL ) Borderline ECG Confirmed by MILAGROS FARRIS MD ([id number]), newspaper or periodical editor ALMA ARREDONDO ([id number]) on 01/03/2023 2:03:41 PM Referred By: Confirmed By:MILAGROS FARRIS MD
--- NOTE | 2022-12-29 17:50 | EDS_ITS ---
HPI History of Present Illness Chief Complaint: Neuro S/Sx Narrative Narrative: Presents for instruction in recurrent stroke symptoms. Symptom onset around 7:30 AM, 10 hours ago. He states he noted himself dropping things with his left hand again. He is right-hand dominant. Reports similar symptoms 1 to 2 weeks ago was hospitalized with a negative work-up. He was increased on his statin and started on aspirin. He denies headache. Hypertension history prediabetic, CKD stage III. After initiation of stroke team, I reevaluate his records and MRI was negative his carotid studies from angiogram noted 50 to 69% left ICA, less than 50% right ICA. Prior similar symptoms: Yes PFSH [facility] Medical History (Updated 12/29/22 @ 21:09 by Sirisha Royal) Epilepsy Former tobacco use Glaucoma History of diet-controlled diabetes HLD (hyperlipidemia) HTN (hypertension) AIMEE (obstructive sleep apnea) TIA (transient ischemic attack) Umbilical hernia Home Medications amlodipine 5 mg tablet 5 mg PO DAILY 01/26/15 [History Last Taken 02/02/15 06:00] terazosin 2 mg capsule 2 mg PO QHS 01/26/15 [History Last Taken Unknown] multivitamin,rx-geky-hyvulmxw 27 mg-0.4 mg tablet (Therems-M) 1 tab PO DAILY 02/02/15 [History Last Taken Unknown] aspirin 81 mg chewable tablet 81 mg PO BREAKFAST 30 days #30 tabs 12/22/22 [Rx Last Taken Unknown] atorvastatin 40 mg tablet 40 mg PO QHS 30 days #30 tabs 12/22/22 [Rx Last Taken Unknown] Allergy/AdvReac Type Severity Reaction Status Date / Time No Known Allergies Allergy Verified 12/29/22 17:30 Family History Mother Hypertension Diabetes Uterine cancer Brother CAD (coronary artery disease) Heart disease Hypertension Surgical History H/O hernia repair H/O vein stripping History of skin surgery Hx of cholecystectomy Social History household members: none housing: house Smoking Status: Never smoker how long ago did patient quit smokin04/17/1968 alcohol intake: never substance use type: does not use ROS ROS ED Constitutional Constitutional ED: Denies chills, fever(s) or sweats Eyes Eyes: Denies change in vision ENT ENT ED: Denies dysphagia or sore throat Cardiovascular Cardiovascular: Denies chest pain, leg edema, palpitations or racing heartbeat Respiratory/Chest Respiratory/Chest: Denies cough, dyspnea or dyspnea on exertion Gastrointestinal Gastrointestinal: Denies abdominal pain, diarrhea, nausea or vomiting Genitourinary Genitourinary ED: Denies dysuria, hematuria or urinary frequency Musculoskeletal Musculoskeletal: Denies back pain, extremity pain or neck pain Integumentary Denies rash or wounds Neurologic Neurologic: Reports paresthesias and weakness; Denies headache(s) EXAM Physical Exam Const Vital Signs: 12/29/22 17:31 12/29/22 17:39 12/29/22 17:37 Temperature 97.8 F Temperature Source Oral Pulse Rate 84 85 Respiratory Rate 15 15 Blood Pressure 161/83 H 161/83 H Blood Pressure Mean 109 109 Pulse Ox 94 97 95 Oxygen Delivery Method Room Air Room Air Room Air 12/29/22 18:09 12/29/22 18:39 12/29/22 19:00 Temperature Temperature Source Pulse Rate 78 77 79 Respiratory Rate 19 H 13 14 Blood Pressure 153/73 H 159/77 H 152/75 H Blood Pressure Mean 99 104 100 Pulse Ox 96 96 97 Oxygen Delivery Method Room Air Room Air Room Air 12/29/22 19:30 12/29/22 20:00 Temperature Temperature Source Pulse Rate 88 89 Respiratory Rate 16 16 Blood Pressure 157/87 H 168/77 H Blood Pressure Mean 110 107 Pulse Ox 96 95 Oxygen Delivery Method Room Air Room Air Positive well nourished and well developed General Appearance ED: well developed and NAD HEENT Reports moist mucous membranes normocephalic and atraumatic Eyes PERRL, EOMs intact bilaterally and conjunctivae normal General Eye ED: Yes normal appearance of both eyes Neck no lymphadenopathy and supple General: Negative for tenderness Chest Wall Chest: Negative for tenderness Resp normal respiratory effort and normal air movement Effort and Inspection: symmetric chest movement; Negative for respiratory distress Cardio regular rate, regular rhythm and no murmurs Peripheral Pulses: pulses 2+ throughout GI normal to inspection, nondistended, normoactive bowel sounds and non-tender Palpation: Negative for guarding or rebound tenderness present Back/Spine no CVA tenderness and no thoracic nor lumbar tenderness Extremity normal to inspection General Extremety ED: Negative for edema or tenderness General Extremity: Negative for edema Neuro oriented x3, CN's II-XII intact bilaterally and no sensory deficits noted Sensorium / Orientation: awake and alert Skin no rashes or lesions noted and no wounds NIHSS NIHSS Initial: 1a Level of Consciousness: 0 1b LOC Questions (Score 2 if aphasic/stupor): 0 1c LOC Commands (Only score 1st attempt): 0 2 Best Gaze (If aphasic, use reflexive mvmts.): 0 3 Visual: 1 4 Facial Palsy: 1 5 Motor Arm Right (UN = amputation/fusion): 0 5 Motor Arm Left: 0 6 Motor Leg Right: 0 6 Motor Leg Left: 0 7 Limb ataxia (Only + if out of proportion): 0 8 Sensory (Aphasia/stupor=0 or 1, coma=2): 0 9 Best Language: 0 10 Dysarthria (mute, coma=2, intubated=UN): 0 11 Extinction and Inattention (only scored if +): 0 Total Score: 2 MDM MDM MDM Narrative Medical decision making narrative: Interventions / MDM: Differential diagnosis: Stroke Diagnosis considered but do not suspect: N/A My EKG interpretation: Sinus rate of 82, no ST changes isolated T wave version lead III. Imaging independently reviewed and interpreted by myself: CT brain: No acute process. 1 view chest x-ray: No acute process. CTA head and neck: External documents reviewed: N/A Test considered but not ordered:N/A ED course: Patient with NIH of 2, stroke team activated with symptoms within 24 hours, symptom onset more than 10 hours therefore not a TNK candidate. He had history of CKD stage III. Patient, we will hold on CT angiogram as he is outside the window. 1750: He is evaluated by stroke neurologist Dr. Aburto agrees with stroke he had left-sided paresthesias on her exam with eyes closed. He is not a TNK candidate. She recommended CT angiogram again as these are new worsening symptoms looking for right-sided lesions as he is left side is affected. Discussed his moderate stenosis left carotid however this would be the opposite side of his symptoms. Disposition after CT angiogram. CT angiogram no thrombus. Posterior cerebral narrowing. Reevaluation NIH unchanged. Discussed with hospitalist Dr. Sanchez with for admission for further treatment. Re-evaluation: stable Disposition discussed with patient/family/significant other: Patient and family Case discussed with consulting clinician: Stroke neurologist, hospitalist This note was generated with Smeet dictation software. It may contain incorrect words, spelling, and punctuation that were not noted in checking the note before signing. Lab Data Attestation: I reviewed the patient's lab results. Labs: Laboratory Results - last 24 hr 12/29/22 17:38 WBC 7.2 RBC 5.26 Hgb 16.0 Hct 46.1 MCV 87.6 MCH 30.4 MCHC 34.7 RDW Std Deviation 39.8 RDW Coeff of Jesus 12.3 Plt Count 160 MPV 9.8 Immature Gran % (Auto) 0.400 Neut % (Auto) 79.0 H Lymph % (Auto) 12.1 L [place] % (Auto) 7.8 Eos % (Auto) 0.1 Baso % (Auto) 0.6 Absolute Neuts (auto) 5.7 Absolute Lymphs (auto) 0.87 Nucleated RBC % 0 PT 15.3 H INR 1.2 APTT 31.4 Sodium 135 L Potassium 4.3 Chloride 103 Carbon Dioxide 27.0 Anion Gap 5 BUN 19 H Creatinine 1.41 H Estim Creat Clear Calc 38.83 Est GFR (MDRD) Af Amer 61 Est GFR (MDRD) Non-Af 51 L BUN/Creatinine Ratio 13.5 Glucose 127 H Calcium 9.4 Troponin I High Sens 7 Radiography Diagnostic Testing: Clinical Impression(s) from Imaging Studies Brain CT 12/29/22 17:39 IMPRESSION: Age-related changes. Electronically Signed: Yves Hay DO at 18:11 EDT , ADDENDUM: 12/29/22 1819 IMPRESSION: Age-related changes. N.B. : The above Results were Read Back by Yves Hay DO to Willie Marks DO, DO, and understanding confirmed on 12/29/2022 18:12:20 (ET). 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 Possible slightly increasing narrowing at the right P1 segment. Electronically Signed: Yves aHy at 19:39 EDT , Chest X-Ray 12/29/22 18:30 IMPRESSION: No radiographic evidence of acute cardiopulmonary disease. Electronically Signed: Yves DO Satnam at 19:18 EDT , Critical Care Time Critical Care Time: Yes Critical care time (excluding procedures): 30-74 minutes, Discussing w/Patient &/or Family/Triple Air Valve Tester, Discussing w/Consultants, Arranging Admission or Transfer, Performing Direct Patient Care at Bedside and - (35 minutes) Discharge Plan Dx/Rx/DC Orders Clinical Impression: CKD (chronic kidney disease), Acute CVA (cerebrovascular accident), Left arm weakness Disposition Disposition: Acute Care Hospital [facility] Discharge Date/Time: 12/29/22 21:33
--- NOTE | 2022-12-29 17:53 | CT_ITS ---
INDICATION: stroke EXAMINATION: CTA BRAIN WITH CONTRAST TECHNIQUE: Routine carotid CT angiogram protocol was performed without and with IV contrast. In addition, images were obtained of the [place] of [place]. NASCET criteria using the distal ICAs for comparison were used for evaluation of stenoses. 3D reconstructions were reviewed. A radiation dose optimization technique was used for this scan. IV Contrast dosage and agent: COMPARISON: FINDINGS: --CTA NECK: AORTIC ARCH AND BRANCHES: Normal anatomy, patent. Mild atherosclerotic calcifications. RIGHT CCA: No occlusion, significant stenosis or dissection. Mild atherosclerotic calcifications. RIGHT CAROTID BULB: Atherosclerosis calcifications with less than 50% luminal stenosis. RIGHT ICA: No occlusion, significant stenosis or dissection. LEFT CCA: No occlusion, significant stenosis or dissection.Mild atherosclerotic calcifications. LEFT CAROTID BULB: Atherosclerosis calcifications with less than 50% luminal stenosis. LEFT ICA: No occlusion, significant stenosis or dissection. RIGHT VERTEBRAL ARTERY: Calcifications at the origin. No occlusion, significant stenosis or dissection. LEFT VERTEBRAL ARTERY: Calcifications at the origin. No occlusion, significant stenosis or dissection. NECK SOFT TISSUES: Unremarkable. --CTA HEAD: --Anterior circulation: ICAs: No significant stenosis at the intracranial/visualized segments. Calcified cavernous portions bilaterally without hemodynamically significant stenosis. ACAs: No significant stenosis at the visualized segments. ACOM: Present. MCAs: No significant stenosis at the visualized segments. --Posterior circulation: PCOMs: Patent on the right. Non- visualization on the left. product specialist: Focal moderate-severe stenosis at the right P1 segment estimated at 80-90%. BASILAR ARTERY: There is a segmental moderate stenosis estimated at 70-75%. VERTEBRAL ARTERIES: No significant stenosis at the intradural/visualized segments. No evidence of intracranial aneurysm or vascular malformation. 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 Possible slightly increasing narrowing at the right P1 segment. Electronically Signed: Yves Hay DO at 19:39 EDT ,
[2022-12-29 18:00] LABS: Absolute Lymphocyte Count 0.87 X10^3/uL (0.83-4.51); Absolute Neutrophil Count 5.7 X10^3/uL (2.0-7.7); Basophil# 0.04 X10^3/uL; Basophil% 0.6 % (0-1); Eosinophil# 0.01 X10^3/uL; Eosinophils% 0.1 % (0-5); Hematocrit 46.1 % (40-54); Lymphocyte # 0.87 X10^3/ul (0.83-4.51); Lymphocyte % 12.1 % (19-41); Mean Corp Hgb Conc 34.7 g/dL (32-36); Mean Corpuscular Hgb 30.4 pg (27.0-32.0); Mean Corpuscular Volume 87.6 fL (80-94); Mean Platelet Vol. 9.8 fl (6.2-12.0); Monocyte# 0.56 X10^3/uL; Monocyte% 7.8 % (0-10); NRBC Flagged by Analyzer 0 % (0-5); Neutrophil # 5.69 X10^3/uL (2.7-7.7); Platelet Count 160 K/mm3 (150-450); RBC Distribution Width CV 12.3 % (11.6-14.6); RBC Distribution Width SD 39.8 fl (35.1-43.9); Red Blood Count 5.26 M/mm3 (4.6-6.2); White Blood Count 7.2 K/mm3 (4.4-11.0)
[2022-12-29 18:11] LABS: Anion Gap 5 (5-15); BUN 19 mg/dL (7-18); BUN/Creat Ratio 13.5 RATIO (10-20); Calcium,Total 9.4 mg/dL (8.5-10.1); Chloride 103 mmol/L (98-107); Creatinine, Serum 1.41 mg/dL (0.70-1.30); EST Glomerular Filtration Rate 51 mL/min (>60); Est Glom Filt Rate - Afr Amer 61 mL/min (>60); Estimated Creatinine Clearance 38.83 ml/min; Glucose 127 mg/dL (74-106); International Normalized Ratio 1.2; Partial Thromboplast Time 31.4 Seconds (24.1-36.2); Potassium 4.3 mmol/L (3.5-5.1); Prothrombin Time (Protime)PT. 15.3 SECONDS (11.7-14.9); Sodium Level 135 mmol/L (136-145); Troponin-I HS 7 pg/mL (3.0-78.0)
--- NOTE | 2022-12-29 18:30 | RAD_ITS ---
INDICATION: Neuro deficit, acute, stroke suspected EXAMINATION/TECHNIQUE: X-RAY - XR Chest 1 View COMPARISON: FINDINGS: LINES/DEVICES: None. LUNGS: No consolidation, edema or effusion. Left upper lobe granuloma. No pneumothorax. MEDIASTINUM AND CARDIOVASCULAR STRUCTURES: Cardiac silhouette not enlarged. Calcified aortic arch. Left hilar granulomatous calcifications. BONES AND SOFT TISSUES: Unremarkable. RAD/Chest 1 View IMPRESSION: No radiographic evidence of acute cardiopulmonary disease. Electronically Signed: Yves Hay DO at 19:18 EDT ,
--- NOTE | 2022-12-29 18:54 | CM.ED ---
Social Work Note Referral Source: Stroke Alert Referral Reason: emotional support SW responded to stroke alert and introduced herself and role to patient's neighbor. SW provided emotional support and reviewed [facility] response to stroke alert including teleconference with [facility] neurology. SW remains available if additional needs arise. No Downing MSW, ALEXANDRE
--- NOTE | 2022-12-29 20:16 | HP.PCM.HOS_ITS ---
[facility] - General General Date of Admission: 12/29/22 Date of Service: 12/29/22 Chief Complaint: Left hand weakness HPI Narrative LIV OROZCO, is a 87 M with a significant history of multiple TIAs, hypertension, glaucoma, and former tobacco abuse who presents emergency department with left-sided weakness that started several hours ago before presentation. Patient was last known well at about 7:30 AM on the day of presentation. He was dropping things with his left arm. Also the fingers of his left hands felt different. Emergency department patient was evaluated by telemetry neurologist and it was found that he was moving his eyes on confrontation exams. [facility] Medical History Epilepsy Former tobacco use Glaucoma History of diet-controlled diabetes History of hypertension History of TIAs HLD (hyperlipidemia) HTN (hypertension) AIMEE (obstructive sleep apnea) TIA (transient ischemic attack) Umbilical hernia Home Medications amlodipine 5 mg tablet 5 mg PO DAILY 01/26/15 [History Last Taken 02/02/15 06:00] terazosin 2 mg capsule 2 mg PO QHS 01/26/15 [History Last Taken Unknown] multivitamin,zx-wuup-imflcmqk 27 mg-0.4 mg tablet (Therems-M) 1 tab PO DAILY 02/02/15 [History Last Taken Unknown] aspirin 81 mg chewable tablet 81 mg PO BREAKFAST 30 days #30 tabs 12/22/22 [Rx Last Taken Unknown] atorvastatin 40 mg tablet 40 mg PO QHS 30 days #30 tabs 12/22/22 [Rx Last Taken Unknown] Allergy/AdvReac Type Severity Reaction Status Date / Time No Known Allergies Allergy Verified 12/29/22 17:30 Family History Mother Hypertension Diabetes Uterine cancer Brother CAD (coronary artery disease) Heart disease Hypertension Surgical History H/O hernia repair H/O vein stripping History of skin surgery Hx of cholecystectomy Social History household members: none housing: house Smoking Status: Never smoker how long ago did patient quit smokin04/17/1968 alcohol intake: never substance use type: does not use ROS ROS Narrative Pertinent positives and pertinent negatives as noted in HPI. All other systems were reviewed and are negative Vital Signs Vital Signs Vital Signs: 12/29/22 17:31 12/29/22 17:39 12/29/22 17:37 Temperature 97.8 F Temperature Source Oral Pulse Rate 84 85 Respiratory Rate 15 15 Blood Pressure 161/83 H 161/83 H Blood Pressure Mean 109 109 Pulse Ox 94 97 95 Oxygen Delivery Method Room Air Room Air Room Air 12/29/22 18:09 12/29/22 18:39 12/29/22 19:00 Temperature Temperature Source Pulse Rate 78 77 79 Respiratory Rate 19 H 13 14 Blood Pressure 153/73 H 159/77 H 152/75 H Blood Pressure Mean 99 104 100 Pulse Ox 96 96 97 Oxygen Delivery Method Room Air Room Air Room Air Weight Weight: 83.1 kg Body Mass Index (BMI) 26.2 Physical Exam Narrative Physical exam: General: Well-nourished, well-developed. Head: Normocephalic, atraumatic, no tenderness Eyes: Vision is grossly intact. EOMI ENT, no trauma, moist mucous membranes, no rhinorrhea Neck: Nontender, No thyromegaly. CVS: Regular rate and rhythm. S1-S2 present. No murmur, gallop or rub. Respiratory : clear to auscultation bilaterally, chest wall nontender Abdomen: Soft, nontender, nondistended, normal bowel sounds, no masses : Deferred Back: Nontender, no CVA tenderness Extremities: Nontender full range of motion, no trauma Skin: Normal color, no trauma, abrasions Neuro: Alert, oriented, cranial nerves II through XII grossly intact. Patient did not feel a touch on his left. Could feel being touch on the right arm. 5 out of 5 throughout bilateral knee reflex and elbow reflex not hyperreflexia. No dysmetria of uwctnx-ug-ebuq test and xrto-jp-gycw test. Left facial droop. No dysarthria or aphasia. Psychiatry: Normal mood. Normal affect. Not depressed. Not anxious. Results Lab / Micro Data 12/29/22 17:38 12/29/22 17:38 Labs: Laboratory Results - last 24 hr 12/29/22 17:38: WBC 7.2, RBC 5.26, Hgb 16.0, Hct 46.1, MCV 87.6, MCH 30.4, MCHC 34.7, RDW Std Deviation 39.8, RDW Coeff of Jesus 12.3, Plt Count 160, MPV 9.8, Immature Gran % (Auto) 0.400, Neut % (Auto) 79.0 H, Lymph % (Auto) 12.1 L, [place] % (Auto) 7.8, Eos % (Auto) 0.1, Baso % (Auto) 0.6, Absolute Neuts (auto) 5.7, Absolute Lymphs (auto) 0.87, Nucleated RBC % 0, PT 15.3 H, INR 1.2, APTT 31.4, Sodium 135 L, Potassium 4.3, Chloride 103, Carbon Dioxide 27.0, Anion Gap 5, BUN 19 H, Creatinine 1.41 H, Estim Creat Clear Calc 38.83, Est GFR (MDRD) Af Amer 61, Est GFR (MDRD) Non-Af 51 L, BUN/Creatinine Ratio 13.5, Glucose 127 H, Calcium 9.4, Troponin I High Sens [address] 12/29/22 17:39 IMPRESSION: Age-related changes. Electronically Signed: Yves Hay DO at 18:11 EDT , ADDENDUM: 12/29/22 1819 IMPRESSION: Age-related changes. N.B. : The above Results were Read Back by Yves Hay DO to Willie Marks DO, DO, and understanding confirmed on 12/29/2022 18:12:20 (ET). 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 Possible slightly increasing narrowing at the right P1 segment. Electronically Signed: Yves Hay DO at 19:39 EDT , Chest X-Ray 12/29/22 18:30 IMPRESSION: No radiographic evidence of acute cardiopulmonary disease. Electronically Signed: Yves HayDO at 19:18 EDT , Assessment & Plan Assessment/Plan (1) Left arm weakness: (2) Acute CVA (cerebrovascular accident): (3) CKD (chronic kidney disease): QUALIFIERS: Chronic kidney disease stage: stage 3 (moderate) Chronic kidney disease stage 3 subtype: stage 3b (GFR 30-44) Qualified Code(s): N18.32 - Chronic kidney disease, stage 3b PLAN: Plan Acute CVA Serial NINDS NIH Scale ordered Impression of head CT by radiology: Upon my personal head CT image review: I agree with radiologist interpretation Last A1c was obtained on 12/22/2022 and it was 5.7. Lipid level was obtained on 12/22/2022 Physical therapy, occupational therapy and to work with patient. N.p.o. until bedside swallow eval. Daily aspirin. High intensity statin Permissive hypertension. Control blood pressure with labetalol for systolic blood pressure of more than 220 or diastolic blood pressure of more than 120. MRI of brain CKD stage IIIb Stable. DVT prophylaxis SCD. Time spent in the patient's overall evaluation,decision-making process, review of diagnostic data, adjustment of management, discussion with other providers, nursing nursing and ancillary staff involved in patient's care documentation, 45 minutes. Charges/Coding Visit Charges Inpatient E&M: 80207 Init Hosp L2
[2022-12-29] MEDS: Atorvastatin Calcium 40 MG Tablet PO (22:42)
[2022-12-30] VITALS (7 sets, daily range): BP systolic 140–173; BP diastolic 69–87; PULSE 65–77; RESP 14–18; TEMP 36.6–36.9; O2SAT 95–97; BMI 23.9
[2022-12-30 06:08] LABS: Absolute Neutrophil Count 3.8 X10^3/uL (2.0-7.7); Basophil# 0.04 X10^3/uL; Basophil% 0.7 % (0-1); Eosinophil# 0.07 X10^3/uL; Eosinophils% 1.2 % (0-5); Hematocrit 45.9 % (40-54); Hemoglobin 15.4 g/dL (13.0-16.5); Lymphocyte % 22.2 % (19-41); Mean Corp Hgb Conc 33.6 g/dL (32-36); Mean Corpuscular Hgb 29.6 pg (27.0-32.0); Mean Corpuscular Volume 88.1 fL (80-94); Mean Platelet Vol. 9.8 fl (6.2-12.0); Monocyte# 0.65 X10^3/uL; Monocyte% 11.1 % (0-10); NRBC Flagged by Analyzer 0 % (0-5); Neutrophil # 3.76 X10^3/uL (2.7-7.7); Neutrophil % 64.3 % (47-70); Platelet Count 176 K/mm3 (150-450); RBC Distribution Width CV 12.6 % (11.6-14.6); RBC Distribution Width SD 40.4 fl (35.1-43.9); Red Blood Count 5.21 M/mm3 (4.6-6.2); White Blood Count 5.9 K/mm3 (4.4-11.0)
[2022-12-30 06:43] LABS: Anion Gap 5 (5-15); BUN 15 mg/dL (7-18); Calcium,Total 9.2 mg/dL (8.5-10.1); Chloride 105 mmol/L (98-107); Creatinine, Serum 1.25 mg/dL (0.70-1.30); EST Glomerular Filtration Rate 58 mL/min (>60); Est Glom Filt Rate - Afr Amer 70 mL/min (>60); Glucose 103 mg/dL (74-106); Potassium 3.8 mmol/L (3.5-5.1); Sodium Level 137 mmol/L (136-145)
[2022-12-30 07:30] LABS: Bedside Glucose 148 mg/dL (74-106)
[2022-12-30] MEDS: Aspirin 81 MG TAB.CHEW PO (08:52)
[2022-12-30] MEDS: Multivitamins,Ther W-Minerals Tablet 1 TABLET PO (08:52)
[2022-12-30] MEDS: 0.9% Saline Lock 10 ML Syringe IV (08:52)
--- NOTE | 2022-12-30 09:00 | MRI_ITS ---
ACR Level 3 findings have been noted. An addendum which confirms receipt of the report will follow. HISTORY: CVA, L HAND TINGLING. TECHNIQUE: Multiplanar and multisequence MR images of the brain were obtained without contrast. 280 images. COMPARISON: CT prior day, MRI of 12/22/2022. FINDINGS: BRAIN PARENCHYMA: Multiple foci and small zones of increased T2 FLAIR signal in the bilateral cerebral white matter. Multiple foci of restricted diffusion in the right middle cerebral artery watershed territory. No acute intracranial hemorrhage identified. CSF SPACES: Generalized volume loss. No significant midline shift or other mass effect.No extra-axial fluid collection. VASCULAR SYSTEM: Major intracranial flow voids are maintained. PARANASAL SINUSES AND MASTOID AIR CELLS: Small right maxillary sinus mucous retention cyst. ORBITS: Symmetric contents. MRI/Brain without Contrast IMPRESSION: Moderate acute right middle cerebral artery watershed territory infarction. Chronic involutional and white matter changes. Electronically Signed: Marielle Galvan MD at 11:35 EDT ,
--- NOTE | 2022-12-30 14:07 | CASEMGMT ---
SW reviewed therapy notes and PT is recommending Acute Rehab Unit. Physician also spoke with SW and suggested this. SW met with patient, introduced self and role at [facility]. SW explained recommendations by therapy and physician for Acute Rehab. SW explained Acute Rehab. Patient expressed he wants to stay in [place]. SW explained the only acute rehab unit in [place] is at [facility]. Patient said he would like to stay here. Patient declined a list of other facilities due to them being too far away. SW asked patient if it was okay if SW spoke with his son to let him know the plan. Patient said that was fine. SW explained to patient that his insurance would need to approve him before he could go to the Rehab Unit. SW told patient he will stay in the hospital until his insurance approves him to go to Rehab. SW told patient this could take a couple of days. SW also told patient that he will go straight from Acute side of hospital to the 4th floor Rehab Unit. Patient will have his own room and he will stay there for his rehab. Patient verbalized understanding. MISTY made a referral to Acute Rehab. Await acceptance and if accepted pre-cert. Eileen Morrison DESIGN LEAD ALEXANDRE
--- NOTE | 2022-12-30 14:15 | CASEMGMT ---
SW completed a PHQ 9 with patient as he had a Stroke. Patient scored a 1 which indicates minimal depression. Patient denied any need for counseling resources. Eileen SCHROEDER
[2022-12-30] MEDS: Clopidogrel Bisulfate 300 MG Tablet PO (14:38)
--- NOTE | 2022-12-30 15:04 | CHAPLAIN ---
Type of Pastoral Visit ___ Initial Visit ___ Follow-up Visit ___ On-call Visit ___ General Patient Visit ___ Spiritual Assessment ___ Family Conference ___ Bereavement ___ Rapid Response ___ Code Blue ___ Other (describe below) Pastoral Care Referral From ___ Patient ___ Family ___ Nurse ___ Physician ___ Community Program Assistant ___ Ammonia Solution Preparer ___ Other (describe below) Sacrament/Intervention ___ Active listening ___ Anointing ___ Church ___ Bereavement ___ Communion ___ Joanie exploration ___ ___ Life review ___ Prayer ___ Reconciliation ___ Sacrament of Sick ___ Supportive presence ___ Wedding ___ Other (describe below) Pastoral Comments patient is sleeping and this director of leadership development did not disturb
--- NOTE | 2022-12-30 16:05 | PCM.PN.HOSP ---
Reason for Visit Reason for Visit: L hand tingling Objective Data Objective Data Vital Signs: Vital Signs Temp Pulse Resp BP Pulse Ox O2 Del Method 98.5 F 70 16 157/78 H 97 Room Air 12/30/22 12:00 12/30/22 12:00 12/30/22 12:00 12/30/22 12:00 12/30/22 12:00 12/30/22 14:22 Oxygen Delivery Method Room Air Weight: 75.9 kg Body Mass Index (BMI) 23.9 Intake & Output: Intake and Output for Last 24 Hours 12/28/22 12/29/22 12/30/22 23:59 23:59 23:59 Intake Total 440 / 440 Output Total 200 / 200 Balance 240 / 240 Lab / Micro Data 12/30/22 05:50 12/30/22 05:50 Labs: Laboratory Results - last 24 hr 12/29/22 17:30: POC Glucose 148 H 12/29/22 17:38: WBC 7.2, RBC 5.26, Hgb 16.0, Hct 46.1, MCV 87.6, MCH 30.4, MCHC 34.7, RDW Std Deviation 39.8, RDW Coeff of Jesus 12.3, Plt Count 160, MPV 9.8, Immature Gran % (Auto) 0.400, Neut % (Auto) 79.0 H, Lymph % (Auto) 12.1 L, [place] % (Auto) 7.8, Eos % (Auto) 0.1, Baso % (Auto) 0.6, Absolute Neuts (auto) 5.7, Absolute Lymphs (auto) 0.87, Nucleated RBC % 0, PT 15.3 H, INR 1.2, APTT 31.4, Sodium 135 L, Potassium 4.3, Chloride 103, Carbon Dioxide 27.0, Anion Gap 5, BUN 19 H, Creatinine 1.41 H, Estim Creat Clear Calc 38.83, Est GFR (MDRD) Af Amer 61, Est GFR (MDRD) Non-Af 51 L, BUN/Creatinine Ratio 13.5, Glucose 127 H, Calcium 9.4, Troponin I High Sens 7 12/30/22 05:50: WBC 5.9, RBC 5.21, Hgb 15.4, Hct 45.9, MCV 88.1, MCH 29.6, MCHC 33.6, RDW Std Deviation 40.4, RDW Coeff of Jesus 12.6, Plt Count 176, MPV 9.8, Immature Gran % (Auto) 0.500, Neut % (Auto) 64.3, Lymph % (Auto) 22.2, [place] % (Auto) 11.1 H, Eos % (Auto) 1.2, Baso % (Auto) 0.7, Absolute Neuts (auto) 3.8, Absolute Lymphs (auto) 1.30, Nucleated RBC % 0, Sodium 137, Potassium 3.8, Chloride 105, Carbon Dioxide 27.0, Anion Gap 5, BUN 15, Creatinine 1.25, Estim Creat Clear Calc 43.80, Est GFR (MDRD) Af Amer 70, Est GFR (MDRD) Non-Af 58 L, BUN/Creatinine Ratio 12.0, Glucose 103, Calcium 9.2 Radiography Diagnostic Testing: Radiology Impression Brain CT 12/29/22 17:39 IMPRESSION: Age-related changes. Electronically Signed: Yves Hay DO at 18:11 EDT , ADDENDUM: 12/29/22 1819 IMPRESSION: Age-related changes. N.B. : The above Results were Read Back by Yves Hay DO to Willie Marks DO, DO, and understanding confirmed on 12/29/2022 18:12:20 (ET). 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 Possible slightly increasing narrowing at the right P1 segment. Electronically Signed: Yves Hay DO at 19:39 EDT , Chest X-Ray 12/29/22 18:30 IMPRESSION: No radiographic evidence of acute cardiopulmonary disease. Electronically Signed: Yves Hay DO at 19:18 EDT , Brain MRI 12/30/22 09:00 IMPRESSION: Moderate acute right middle cerebral artery watershed territory infarction. Chronic involutional and white matter changes. Electronically Signed: Marielle Galvan MD at 11:35 EDT , ADDENDUM: 12/30/22 1201 IMPRESSION: Moderate acute right middle cerebral artery watershed territory infarction. Chronic involutional and white matter changes. N.B. : Navjot Antoine RN, confirmed on 12/30/2022 11:54:27 (ET) that the healthcare facility has received the radiology report. Electronically Signed: Marielle Galvan MD at 11:35 EDT , Physical Exam Const alert, oriented x3, no apparent distress, average body habitus and well nourished Constitutional Narrative: Only, white male, sitting up in a chair at the bedside, appears comfortable and nontoxic, searching for his call light which is sitting in his lap on the left side, appears to have some left-sided neglect HEENT head/scalp atraumatic and moist oral mucous membranes Head and Scalp: normocephalic Resp normal respiratory effort, no retractions, no use of accessory muscles and clear to auscultation bilaterally Resp Narrative: Diminished but clear diffusely Auscultation: Negative for rales, rhonchi or wheezes Cardio regular rate, regular rhythm, S1 normal heart sound, S2 normal heart sound, no murmurs, no rub, no gallops and no clicks GI normal to inspection, nondistended, normoactive bowel sounds, soft to palpation and non-tender Extremity no clubbing, cyanosis or edema Extremity Narrative: Pedal pulses are 2+ Neuro oriented x3, moves all extremities and No no sensory deficits noted Neuro Narrative: Patient appears to have some left-sided facial droop that is mild, persistent left hand paresthesias, significant left-sided neglect noted, generalized weakness noted proximal greater than distal Speech: speech normal Motor Exam: Negative for strength 5/5 throughout Psych affect normal Psych Narrative: Pleasant, interacts well, does not notice me while I am on the left side of his body Assessment & Plan Assessment/Plan (1) Acute CVA (cerebrovascular accident): (2) Basilar artery stenosis: (3) Left arm weakness: (4) Case-neglect of left side: (5) Elevated serum creatinine: PLAN: Plan Right multifocal MCA territory infarct -Highly suspicious for cardioembolic phenomenon -Patient has some mild left-sided weakness, paresthesias, facial droop, and significant left-sided neglect at the time of my evaluation -Hemoglobin A1c done on 12/23/2022 was 5.7 -Cholesterol done on 12/23/2022 was total cholesterol 162/LDL 104/HDL 39/triglycerides 101 -Continue statin but increase to high intensity dosing -Load with Plavix 300 mg today and start Plavix 75 mg tomorrow -Continue aspirin 81 mg -Will need to combine Plavix and aspirin for 90 days after discharge -After 90 days of dual antiplatelet therapy plan will be to transition to aspirin 325 mg monotherapy with repeat vascular imaging -We will consult cardiology for MORRO as this appears to be cardioembolic as he had an echocardiogram done on 12/21/2022 which showed an EF of 50 to 60% with normal LV systolic function and a negative bubble study -If MORRO negative will discharge with event monitor for 30 days -Continue NIH as ordered -Continue to hold antihypertensives and allow for some permissive hypertension and restart antihypertensives tomorrow if blood pressure adequate -PT/OT evaluation pending however I do anticipate patient will need rehab at discharge as he has significant left hemineglect on exam -We will need outpatient neurology follow-up after discharge Basilar artery stenosis -Neurology follow-up after discharge -With cerebral stenosis will need full dose aspirin after dual antiplatelet therapy is completed per discussion with neurology Left-sided hemineglect/left-sided weakness/left-sided sensory deficits -PT/OT following -Hoping for acute rehab at discharge Elevated serum creatinine on CKD stage IIIa -Creatinine on admission was 1.41 -Baseline appears to be between 1.15 and 1.3 -Down to 1.25 this morning -Monitor Hypertension -Hold home amlodipine -Patient is only on 5 mg will start tomorrow but patient may need increased doses to 10 mg or additional medication depending on blood pressure trends Hyperlipidemia -Continue statin at increased dose 80 mg nightly with stroke -LDL was greater than 100 History of seizure disorder -Patient is not on any antiepileptic medications however this is documented in his history -This is documented that he had it when he was a child and appears that he has grown out of it -We will monitor History of TIA -As above History of tobacco abuse -Recommend ongoing cessation DVT prophylaxis -Start Lovenox 40 subcu daily CODE STATUS -DNR CCA with no intubation Charges/Coding Visit Charges Inpatient E&M: 90003 Subs Hosp L2
--- NOTE | 2022-12-30 16:10 | ECHOTEE_ITS ---
Reason For Study: TIA/CVA Medication MORRO probe 6VT-D (SN [id number]) passed without difficulty. No complications were noted. Cetacaine Topical [place] given X3 orally. Versed 2 mg given slow IVP. Fentanyl 50 mcg given slow IVP. Performed a rapid injection of agitated mix of 9 cc saline and 1cc air to assess for atrial septal defect. Left Ventricle Normal LV size. Left ventricular systolic function is normal. The estimated ejection fraction is 65 %. No regional wall motion abnormalities noted. Right Ventricle Normal RV size. Normal systolic function. Atria Hypermobile atrial septum. Bubble contrast study negative for right to left interatrial shunt. Normal left atrium. Normal right atrium. Mitral Valve Normal mitral valve. Mild (1+) eccentric mitral valve insufficiency. Tricuspid Valve Normal tricuspid valve. Mild tricuspid valve insufficiency. Aortic Valve Normal aortic valve. Trisinus/trileaflet aortic valve. Pulmonic Valve Normal pulmonic valve. Vessels Normal aortic root. Mild atherosclerosis of the aortic arch. The pulmonary artery is normal size. Pulmonary venous flow normal. Pericardium No pericardial effusion. ECHO/Echo Transesophageal (MORRO) Interpretation Summary Normal LV size. Left ventricular systolic function is normal. Hypermobile atrial septum. The estimated ejection fraction is 65 %. Ordering Physician: Meli Aburto Referring Physician: Cholo Friedman Performed By: Angelica Reina, RDCS, RVT
[2022-12-30] MEDS: Enoxaparin 40 MG/0.4 ML Syringe SC (18:37)
[2022-12-30] MEDS: Atorvastatin Calcium 80 MG Tablet PO (21:48)
[2022-12-31] VITALS (10 sets, daily range): BP systolic 141–186; BP diastolic 73–80; PULSE 62–74; RESP 16–18; TEMP 36.5–36.9; O2SAT 94–97; BMI 23.9
[2022-12-31 08:00] LABS: Absolute Lymphocyte Count 0.92 X10^3/uL (0.83-4.51); Absolute Neutrophil Count 3.6 X10^3/uL (2.0-7.7); Basophil# 0.05 X10^3/uL; Eosinophil# 0.07 X10^3/uL; Eosinophils% 1.3 % (0-5); Hematocrit 45.8 % (40-54); Hemoglobin 15.5 g/dL (13.0-16.5); Lymphocyte # 0.92 X10^3/ul (0.83-4.51); Lymphocyte % 17.5 % (19-41); Mean Corp Hgb Conc 33.8 g/dL (32-36); Mean Corpuscular Hgb 29.8 pg (27.0-32.0); Mean Corpuscular Volume 88.1 fL (80-94); Mean Platelet Vol. 9.8 fl (6.2-12.0); Monocyte# 0.56 X10^3/uL; Monocyte% 10.6 % (0-10); NRBC Flagged by Analyzer 0 % (0-5); Neutrophil # 3.63 X10^3/uL (2.7-7.7); Platelet Count 172 K/mm3 (150-450); RBC Distribution Width CV 12.4 % (11.6-14.6); RBC Distribution Width SD 40.2 fl (35.1-43.9); White Blood Count 5.3 K/mm3 (4.4-11.0)
[2022-12-31 08:21] LABS: Anion Gap 5 (5-15); BUN 16 mg/dL (7-18); BUN/Creat Ratio 14.3 RATIO (10-20); Calcium,Total 8.9 mg/dL (8.5-10.1); Chloride 108 mmol/L (98-107); Creatinine, Serum 1.12 mg/dL (0.70-1.30); EST Glomerular Filtration Rate 66 mL/min (>60); Est Glom Filt Rate - Afr Amer 80 mL/min (>60); Estimated Creatinine Clearance 48.88 ml/min; Glucose 108 mg/dL (74-106); Potassium 3.9 mmol/L (3.5-5.1); Sodium Level 140 mmol/L (136-145)
[2022-12-31] MEDS: Aspirin 81 MG TAB.CHEW PO (09:11)
[2022-12-31] MEDS: Multivitamins,Ther W-Minerals Tablet 1 TABLET PO (09:12)
[2022-12-31] MEDS: Enoxaparin 40 MG/0.4 ML Syringe SC (09:14)
[2022-12-31] MEDS: Clopidogrel Bisulfate 75 MG Tablet PO (12:14)
--- NOTE | 2022-12-31 14:40 | PN.HOSP_ITS ---
Reason for Visit Reason for Visit: Left hand tingling Subjective Subjective Patient denies any current issues. No issues overnight. States his left hand still feels like it is weak. Tingling is gone. Discussed MORRO with him and he is willing to proceed with this. I did let him know would probably not happen till Monday and he voiced understanding. Objective Data Objective Data Vital Signs: Vital Signs Temp Pulse Resp BP Pulse Ox O2 Del Method 97.7 F L 74 18 141/73 H 95 Room Air 12/31/22 12:00 12/31/22 12:00 12/31/22 12:00 12/31/22 12:00 12/31/22 12:00 12/31/22 12:00 Oxygen Delivery Method Room Air Weight: 75.9 kg Body Mass Index (BMI) 23.9 Intake & Output: Intake and Output for Last 24 Hours 12/29/22 12/30/22 12/31/22 23:59 23:59 23:59 Intake Total 1040 / 1040 0 / 0 Output Total 200 / 200 Balance 840 / 840 0 / 0 Lab / Micro Data 12/31/22 07:46 12/31/22 07:46 Labs: Laboratory Results - last 24 hr 12/31/22 07:46: WBC 5.3, RBC 5.20, Hgb 15.5, Hct 45.8, MCV 88.1, MCH 29.8, MCHC 33.8, RDW Std Deviation 40.2, RDW Coeff of Jesus 12.4, Plt Count 172, MPV 9.8, Immature Gran % (Auto) 0.600, Neut % (Auto) 69.0, Lymph % (Auto) 17.5 L, Rapides % (Auto) 10.6 H, Eos % (Auto) 1.3, Baso % (Auto) 1.0, Absolute Neuts (auto) 3.6, Absolute Lymphs (auto) 0.92, Nucleated RBC % 0, Sodium 140, Potassium 3.9, Chl oride 108 H, Carbon Dioxide 27.0, Anion Gap 5, BUN 16, Creatinine 1.12, Estim Creat Clear Calc 48.88, Est GFR (MDRD) Af Amer 80, Est GFR (MDRD) Non-Af 66, BUN/Creatinine Ratio 14.3, Glucose 108 H, Calcium 8.9 Physical Exam Const alert, oriented x3, no apparent distress, average body habitus and well nourished Constitutional Narrative: Elderly, white male, sitting up in a chair at the bedside, appears comfortable and nontoxic, eating breakfast HEENT head/scalp atraumatic and moist oral mucous membranes Head and Scalp: normocephalic Resp normal respiratory effort, no retractions, no use of accessory muscles and clear to auscultation bilaterally Resp Narrative: Diminished but clear diffusely Auscultation: Negative for rales, rhonchi or wheezes Cardio regular rate, regular rhythm, S1 normal heart sound, S2 normal heart sound, no murmurs, no rub, no gallops and no clicks GI normal to inspection, nondistended, normoactive bowel sounds, soft to palpation and non-tender Extremity no clubbing, cyanosis or edema Extremity Narrative: Pedal pulses are 2+ Neuro oriented x3, moves all extremities and No no sensory deficits noted Neuro Narrative: Mild residual left-sided facial droop that is mild, no sensory deficits,, significant left-sided neglect noted, generalized weakness noted proximal greater than distal, mild focal deficit with weakness in his left hand however not severe Speech: speech normal Motor Exam: Negative for strength 5/5 throughout Psych affect normal Psych Narrative: Pleasant, interacts well Assessment & Plan Assessment/Plan (1) Acute CVA (cerebrovascular accident): (2) Basilar artery stenosis: (3) Left arm weakness: (4) Case-neglect of left side: (5) Elevated serum creatinine: PLAN: Plan Right multifocal MCA territory infarct -Highly suspicious for cardioembolic phenomenon -Patient has some mild left-sided weakness, paresthesias, facial droop, and significant left-sided neglect at the time of my evaluation -Hemoglobin A1c done on 12/23/2022 was 5.7 -Cholesterol done on 12/23/2022 was total cholesterol 162/LDL 104/HDL 39/triglycerides 101 -Continue atorvastatin 80 mg -Continue Plavix 75 mg -Continue aspirin 81 mg -Will need to combine Plavix and aspirin for 90 days after discharge -After 90 days of dual antiplatelet therapy plan will be to transition to aspirin 325 mg monotherapy with repeat vascular imaging -MORRO likely Monday we will make n.p.o. at midnight tomorrow -echocardiogram done on 12/21/2022 which showed an EF of 50 to 60% with normal LV systolic function and a negative bubble study -If MORRO negative will discharge with event monitor for 30 days -Continue NIH as ordered -Restart home amlodipine -PT/OT evaluation pending however I do anticipate patient will need rehab at discharge as he has significant left hemineglect on exam -We will need outpatient neurology follow-up after discharge Basilar artery stenosis -Neurology follow-up after discharge -With cerebral stenosis will need full dose aspirin after dual antiplatelet therapy is completed per discussion with neurology Left-sided hemineglect/left-sided weakness/left-sided sensory deficits -PT/OT following -Plan is for acute rehab here at [facility] at discharge and currently awaiting pre-CERT Elevated serum creatinine on CKD stage IIIa -Creatinine on admission was 1.41 -Baseline appears to be between 1.15 and 1.3 -Down to 1.12 this morning -Monitor Hypertension -Restart home amlodipine and continue to follow blood pressure trends -Goal blood pressure is less than 130/80 Hyperlipidemia -Continue atorvastatin 80 mg nightly -LDL was greater than 100 History of seizure disorder -Patient is not on any antiepileptic medications however this is documented in his history -This is documented that he had it when he was a child and appears that he has grown out of it -We will monitor History of TIA -As above History of tobacco abuse -Recommend ongoing cessation DVT prophylaxis -Continue Lovenox 40 subcu daily CODE STATUS -DNR CCA with no intubation Charges/Coding Visit Charges Inpatient E&M: 17184 Subs Hosp L2
[2022-12-31] MEDS: amLODIPine 5 MG Tablet PO (16:18)
[2022-12-31] MEDS: Atorvastatin Calcium 80 MG Tablet PO (21:17)
[2023-01-01] VITALS (9 sets, daily range): BP systolic 136–162; BP diastolic 62–82; PULSE 67–73; RESP 14–16; TEMP 36.6–37.1; O2SAT 94–96; BMI 23.9
[2023-01-01] MEDS: Multivitamins,Ther W-Minerals Tablet 1 TABLET PO (09:20)
[2023-01-01] MEDS: Clopidogrel Bisulfate 75 MG Tablet PO (09:20)
[2023-01-01] MEDS: Aspirin 81 MG TAB.CHEW PO (09:20)
[2023-01-01] MEDS: amLODIPine 5 MG Tablet PO ×2 (09:21→15:18)
[2023-01-01] MEDS: Enoxaparin 40 MG/0.4 ML Syringe SC (09:35)
--- NOTE | 2023-01-01 13:10 | PN.HOSP_ITS ---
Reason for Visit Reason for Visit: Left hand tingling/weakness Subjective Subjective Patient has no issues. No problems overnight. States he is feeling well. Has been doing exercises in his room to help with his left hand strength. Seems to have less left neglect today. Objective Data Objective Data Vital Signs: Vital Signs Temp Pulse Resp BP Pulse Ox O2 Del Method 98.2 F 72 14 142/68 H 94 Room Air 01/01/23 08:30 01/01/23 10:00 01/01/23 10:00 01/01/23 10:00 01/01/23 10:00 01/01/23 10:00 Oxygen Delivery Method Room Air Weight: 75.9 kg Body Mass Index (BMI) 23.9 Intake & Output: Intake and Output for Last 24 Hours 12/30/22 12/31/22 01/01/23 23:59 23:59 23:59 Intake Total 1040 / 1040 0 / 0 Output Total 200 / 200 200 / 200 Balance 840 / 840 0 / 0 -200 / -200 Lab / Micro Data 12/31/22 07:46 12/31/22 07:46 Physical Exam Const alert, oriented x3, no apparent distress, average body habitus and well nourished Constitutional Narrative: Elderly, white male, sitting up in a chair at the bedside, appears comfortable and nontoxic HEENT head/scalp atraumatic and moist oral mucous membranes HEENT Narrative: Dentition is poor, Mallampati is 2, no thrush Head and Scalp: normocephalic Resp normal respiratory effort, no retractions, no use of accessory muscles and clear to auscultation bilaterally Resp Narrative: Diminished but clear diffusely Auscultation: Negative for rales, rhonchi or wheezes Cardio regular rate, regular rhythm, S1 normal heart sound, S2 normal heart sound, no murmurs, no rub, no gallops and no clicks GI normal to inspection, nondistended, normoactive bowel sounds, soft to palpation and non-tender Extremity no clubbing, cyanosis or edema Extremity Narrative: Pedal pulses are 2+ Neuro oriented x3, moves all extremities and No no sensory deficits noted Neuro Narrative: Mild residual left-sided facial droop that is mild, no sensory deficits,, significant left-sided neglect noted however this seems to be improving, generalized weakness noted proximal greater than distal, mild focal deficit with weakness in his left hand however not severe and improved from yesterday Speech: speech normal Motor Exam: Negative for strength 5/5 throughout Psych affect normal Psych Narrative: Pleasant, interacts well Assessment & Plan Assessment/Plan (1) Acute CVA (cerebrovascular accident): (2) Basilar artery stenosis: (3) Left arm weakness: (4) Case-neglect of left side: (5) Elevated serum creatinine: PLAN: Plan Right multifocal MCA territory infarct -Highly suspicious for cardioembolic phenomenon -Patient has some mild left-sided weakness, paresthesias, facial droop, and significant left-sided neglect at the time of my evaluation -Hemoglobin A1c done on 12/23/2022 was 5.7 -Cholesterol done on 12/23/2022 was total cholesterol 162/LDL 104/HDL 39/triglycerides 101 -Continue atorvastatin 80 mg -Continue Plavix 75 mg -Continue aspirin 81 mg -Will need to combine Plavix and aspirin for 90 days after discharge -After 90 days of dual antiplatelet therapy plan will be to transition to aspirin 325 mg monotherapy with repeat vascular imaging -MORRO likely tomorrow we will make n.p.o. at tomorrow -echocardiogram done on 12/21/2022 which showed an EF of 50 to 60% with normal LV systolic function and a negative bubble study -If MORRO negative will discharge with event monitor for 30 days -Continue NIH as ordered -Continue home amlodipine but increase dose to 10 mg as blood pressure still above goal -PT/OT evaluation pending however I do anticipate patient will need rehab at discharge as he has significant left hemineglect on exam -We will need outpatient neurology follow-up after discharge Basilar artery stenosis -Neurology follow-up after discharge -With cerebral stenosis will need full dose aspirin after dual antiplatelet therapy is completed per discussion with neurology Left-sided hemineglect/left-sided weakness/left-sided sensory deficits -PT/OT following -Plan is for acute rehab here at [facility] at discharge and currently awaiting pre-CERT Elevated serum creatinine on CKD stage IIIa -Creatinine on admission was 1.41 -Baseline appears to be between 1.15 and 1.3 -Down to 1.12 this morning -Monitor Hypertension -Blood pressure is above goal will increase amlodipine to 10 mg p.o. daily -Goal blood pressure is less than 130/80 Hyperlipidemia -Continue atorvastatin 80 mg nightly -LDL was greater than 100 History of seizure disorder -Patient is not on any antiepileptic medications however this is documented in his history -This is documented that he had it when he was a child and appears that he has grown out of it -We will monitor History of TIA -As above History of tobacco abuse -Recommend ongoing cessation DVT prophylaxis -Continue Lovenox 40 subcu daily CODE STATUS -DNR CCA with no intubation Charges/Coding Visit Charges Inpatient E&M: 51222 Subs Hosp L1
[2023-01-01] MEDS: Atorvastatin Calcium 80 MG Tablet PO (21:43)
[2023-01-02] VITALS (10 sets, daily range): BP systolic 125–149; BP diastolic 63–79; PULSE 63–76; RESP 16; TEMP 36.6–37.1; O2SAT 93–99; BMI 23.9
[2023-01-02 06:49] LABS: Absolute Lymphocyte Count 1.04 X10^3/uL (0.83-4.51); Absolute Neutrophil Count 4.4 X10^3/uL (2.0-7.7); Basophil# 0.05 X10^3/uL; Basophil% 0.8 % (0-1); Eosinophils% 1.6 % (0-5); Hematocrit 46.3 % (40-54); Hemoglobin 15.6 g/dL (13.0-16.5); Lymphocyte # 1.04 X10^3/ul (0.83-4.51); Lymphocyte % 16.5 % (19-41); Mean Corp Hgb Conc 33.7 g/dL (32-36); Mean Corpuscular Hgb 29.7 pg (27.0-32.0); Mean Platelet Vol. 10.3 fl (6.2-12.0); Monocyte# 0.71 X10^3/uL; Monocyte% 11.2 % (0-10); NRBC Flagged by Analyzer 0 % (0-5); Neutrophil # 4.39 X10^3/uL (2.7-7.7); Neutrophil % 69.4 % (47-70); Platelet Count 187 K/mm3 (150-450); RBC Distribution Width CV 12.5 % (11.6-14.6); RBC Distribution Width SD 40.1 fl (35.1-43.9); Red Blood Count 5.26 M/mm3 (4.6-6.2); White Blood Count 6.3 K/mm3 (4.4-11.0)
[2023-01-02 07:28] LABS: Anion Gap 6 (5-15); BUN 17 mg/dL (7-18); BUN/Creat Ratio 14.7 RATIO (10-20); Calcium,Total 9.1 mg/dL (8.5-10.1); Chloride 107 mmol/L (98-107); Creatinine, Serum 1.16 mg/dL (0.70-1.30); EST Glomerular Filtration Rate 63 mL/min (>60); Est Glom Filt Rate - Afr Amer 77 mL/min (>60); Glucose 100 mg/dL (74-106); Potassium 3.7 mmol/L (3.5-5.1); Sodium Level 140 mmol/L (136-145)
[2023-01-02] MEDS: Enoxaparin 40 MG/0.4 ML Syringe SC (09:53)
[2023-01-02] MEDS: Aspirin 81 MG TAB.CHEW PO (09:54)
[2023-01-02] MEDS: Clopidogrel Bisulfate 75 MG Tablet PO (09:54)
[2023-01-02] MEDS: Multivitamins,Ther W-Minerals Tablet 1 TABLET PO (09:54)
[2023-01-02] MEDS: amLODIPine 10 MG Tablet PO (09:58)
[2023-01-02] MEDS: Ensure Plus High Protein 120 ML LIQUID PO ×4 (10:00→21:24)
--- NOTE | 2023-01-02 11:56 | DCINST_ITS ---
Discharge Instructions Diet Discharge Diet: No restrictions Activity Discharge Activity: Return to Normal Activity Weight Bearing Status: Full weight bearing Follow Up Care Test Results: Test results from this visit will be discussed in further detail at your follow- up appointment, if applicable. Discharge Plan Admission Admit Date/Time: 12/30/22 16:06 Attending Provider: Omari Hoyos Primary Care Provider: Cholo Friedman Consulting Providers: Vinod Lockowod; Meli Aburto Discharge Orders/Prescriptions Prescriptions: No Action amlodipine 5 MG tablet 5 mg PO DAILY Patient Comments: BLOOD PRESSURE terazosin 2 MG capsule 2 mg PO QHS Patient Comments: BLOOD PRESSURE Therems-M 1 TABLET tablet 1 tab PO DAILY Patient Comments: SUPPLEMENT atorvastatin 40 mg Tablet 40 mg PO QHS 30 Days Qty: 30 0RF aspirin 81 mg Tablet,Chewable 81 mg PO BREAKFAST 30 Days Qty: 30 0RF Referrals / Follow Up: Cholo Friedman MD [Primary Care Provider] -
--- NOTE | 2023-01-02 12:18 | CASEMGMT ---
Insurance is still pending for Acute Rehab Unit. MISTY spoke with patient and he is still interested in going to the Rehab Unit if his insurance approves him. MISTY will notify patient as soon as MISTY hears something. MISTY notified physician. Eileen Morrison MSW ALEXANDRE
--- NOTE | 2023-01-02 16:05 | CHAPLAIN ---
Type of Pastoral Visit _x__ Initial Visit ___ Follow-up Visit ___ On-call Visit ___ General Patient Visit ___ Spiritual Assessment ___ Family Conference ___ Bereavement ___ Rapid Response ___ Code Blue ___ Other (describe below) Pastoral Care Referral From _x__ Patient ___ Family ___ Nurse ___ Physician ___ Patient Portal Concierge ___ Wine Steward/Stewardess ___ Other (describe below) Sacrament/Intervention _x__ Active listening ___ Anointing ___ Evangelical ___ Bereavement ___ Communion _x__ Joanie exploration ___ _x__ Life review _x_ Prayer ___ Reconciliation ___ Sacrament of Sick _x__ Supportive presence ___ Wedding ___ Other (describe below) Pastoral Comments patient is welcoming and expresses gratitude for visit from 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
--- NOTE | 2023-01-02 19:36 | PN.HOSP_ITS ---
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 Patient's MORRO was unremarkable. We are currently awaiting insurance approval for his transfer to the acute rehab unit here at the hospital for short-term rehab services. Objective Data Objective Data Vital Signs: Vital Signs Temp Pulse Resp BP Pulse Ox O2 Del Method 98.7 F 76 16 131/68 H 99 Room Air 01/02/23 16:00 01/02/23 16:00 01/02/23 16:00 01/02/23 16:00 01/02/23 16:00 01/02/23 17:55 Oxygen Delivery Method Room Air Weight: 75.9 kg Body Mass Index (BMI) 23.9 Intake & Output: Intake and Output for Last 24 Hours 12/31/22 01/01/23 01/02/23 23:59 23:59 23:59 Intake Total 0 / 0 190 / 190 800 / 800 Output Total 400 / 400 300 / 300 Balance 0 / 0 -210 / -210 500 / 500 Lab / Micro Data 01/02/23 05:24 01/02/23 05:24 Labs: Laboratory Results - last 24 hr 01/02/23 05:24: WBC 6.3, RBC 5.26, Hgb 15.6, Hct 46.3, MCV 88.0, MCH 29.7, MCHC 33.7, RDW Std Deviation 40.1, RDW Coeff of Jesus 12.5, Plt Count 187, MPV 10.3, Immature Gran % (Auto) 0.500, Neut % (Auto) 69.4, Lymph % (Auto) 16.5 L, [place]ack[place]ord % (Auto) 11.2 H, Eos % (Auto) 1.6, Baso % (Auto) 0.8, Absolute Neuts (auto) 4.4, Absolute Lymphs (auto) 1.04, Nucleated RBC % 0, Sodium 140, Potassium 3.7, Chloride 107, Carbon Dioxide 27.0, Anion Gap 6, BUN 17, Creatinine 1.16, Estim Creat Clear Calc 47.20, Est GFR (MDRD) Af Amer 77, Est GFR (MDRD) Non-Af 63, BUN/Creatinine Ratio 14.7, Glucose 100, Calcium 9.1 Radiography Diagnostic Testing: Radiology Impression Transesophageal Echocardiogram 12/30/22 16:10 Interpretation Summary Normal LV size. Left ventricular systolic function is normal. Hypermobile atrial septum. The estimated ejection fraction is 65 %. Ordering Physician: Meli Aburto Referring Physician: Cholo Friedman Performed By: Angelica Reina, MIGUELINA, RVT Physical Exam Const alert, oriented x3, no apparent distress, average body habitus and healthy appearing General Appearance: cooperative, well kempt and well developed Orientation / Consciousness: awake, oriented to person, oriented to place and oriented to time HEENT normocephalic, head/scalp atraumatic and moist oral mucous membranes Eyes PERRL, EOMs intact bilaterally and conjunctivae normal Neck supple, no JVD, thyroid normal and no carotid bruits General: trachea midline Resp normal respiratory effort and clear to auscultation bilaterally Auscultation: Negative for rales, rhonchi or wheezes Cardio regular rate, regular rhythm, S1 normal heart sound, S2 normal heart sound, no murmurs, no rub and no gallops GI normal to inspection, nondistended, normoactive bowel sounds, soft to palpation, non-tender and non-distended Extremity no clubbing, cyanosis or edema Skin no rashes or lesions noted General Skin Exam: no breakdown Neuro oriented x3, CN's II-XII intact bilaterally and no sensory deficits noted Neuro Narrative: Patient has some left-sided weakness on examination Sensorium / Orientation: awake, alert, oriented to person, oriented to place and oriented to time Speech: speech normal Psych affect normal Assessment & Plan Assessment/Plan (1) Acute CVA (cerebrovascular accident): PLAN: Plan 1. Right MCA ischemic stroke-patient will remain on aspirin and Plavix, he has agreed to go to the rehab unit here at the hospital for short-term rehab services if his insurance will approve it. Continue PT and OT #2 chronic kidney disease stage IIIa-complicates care, medical course, recovery, and prognosis #3 essential hypertension-patient is on amlodipine, blood pressure will be monitored #4 hyperlipidemia-patient is on atorvastatin Total clinical time spent by myself addressing the patient's medical issues, reviewing all of his data, and collaborating with patient's care team: 25 minutes Charges/Coding Visit Charges Inpatient E&M: 73810 Subs Hosp L1
[2023-01-02] MEDS: Atorvastatin Calcium 80 MG Tablet PO (21:24)
[2023-01-03] VITALS: BP 122/65; PULSE 65; RESP 16; TEMP 36.7; O2SAT 96
[2023-01-03 04:00] VITALS: BP 164/78; PULSE 67; RESP 16; TEMP 36.6; O2SAT 97
[2023-01-03 04:44] VITALS: BMI 23.9
[2023-01-03 07:52] VITALS: O2SAT 96
[2023-01-03 09:50] VITALS: BP 166/83; PULSE 63; RESP 16; TEMP 37; O2SAT 94
[2023-01-03] MEDS: Aspirin 81 MG TAB.CHEW PO (09:52)
[2023-01-03] MEDS: amLODIPine 10 MG Tablet PO (09:52)
[2023-01-03] MEDS: Clopidogrel Bisulfate 75 MG Tablet PO (09:52)
[2023-01-03] MEDS: Ensure Plus High Protein 120 ML LIQUID PO ×4 (09:52→20:02)
[2023-01-03] MEDS: Enoxaparin 40 MG/0.4 ML Syringe SC (09:52)
[2023-01-03] MEDS: Multivitamins,Ther W-Minerals Tablet 1 TABLET PO (09:52)
[2023-01-03 15:34] VITALS: BMI 23.9
[2023-01-03 15:50] VITALS: BP 125/64; PULSE 67; RESP 18; TEMP 37.2; O2SAT 95
--- NOTE | 2023-01-03 18:45 | CASEMGMT ---
Social Work Received notice from insurance that patient is denied for RU level of care, as felt care needs could be addressed at a lesser level of care. Patient has right to appeal is wishes. Met with patient in room, introducing to self and role. Later joined by patient's son and [id number]. Patient reports to be feeling better, but thought could still use some therapy before going home. Touched on SNF, HHC, and outpatient. Patient does live alone. Patient thought a SNF for short term, maybe a week or so, then to home. Patient mentioned staying at the hospital (TCU) which this blurb writer indicated could work on, but could also provide a list of options as well. SW agreed to follow up with patient on 11.03.22 for continuation of discharge planning. Family did not participate in conversation, even with social work attempt at eliciting feedback on thoughts of going home versus a SNF. Plan: Looking at SNF LOC, possibly [facility]. -BLAIR Bagley
--- NOTE | 2023-01-03 18:57 | PCM.PN.HOSP ---
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 Patient has no complaints of weakness today. Objective Data Objective Data Vital Signs: Vital Signs Temp Pulse Resp BP Pulse Ox O2 Del Method 99.0 F 67 18 125/64 H 95 Room Air 01/03/23 15:50 01/03/23 15:50 01/03/23 15:50 01/03/23 15:50 01/03/23 15:50 01/03/23 15:50 Oxygen Delivery Method Room Air Weight: 75.9 kg Body Mass Index (BMI) 23.9 Intake & Output: Intake and Output for Last 24 Hours 01/01/23 01/02/23 01/03/23 23:59 23:59 23:59 Intake Total 190 / 190 800 / 800 480 / 480 Output Total 400 / 400 300 / 300 Balance -210 / -210 500 / 500 480 / 480 Lab / Micro Data 01/02/23 05:24 01/02/23 05:24 Physical Exam Const alert, oriented x3, no apparent distress, average body habitus and healthy appearing General Appearance: cooperative, well kempt and well developed Orientation / Consciousness: awake, oriented to person, oriented to place and oriented to time HEENT normocephalic and moist oral mucous membranes Eyes PERRL, EOMs intact bilaterally and conjunctivae normal Neck supple, no JVD, thyroid normal and no carotid bruits General: trachea midline Resp normal respiratory effort and clear to auscultation bilaterally Auscultation: Negative for rales, rhonchi or wheezes Cardio regular rate, regular rhythm, S1 normal heart sound, S2 normal heart sound, no murmurs, no rub and no gallops GI normal to inspection, nondistended, normoactive bowel sounds, soft to palpation, non-tender and non-distended Extremity no clubbing, cyanosis or edema Skin no rashes or lesions noted General Skin Exam: no breakdown Neuro oriented x3, CN's II-XII intact bilaterally, moves all extremities, no focal motor deficits and no sensory deficits noted Sensorium / Orientation: awake and alert Speech: speech normal Psych affect normal Assessment & Plan Assessment/Plan (1) Case-neglect of left side: (2) Acute CVA (cerebrovascular accident): PLAN: Plan 1. Right MCA ischemic stroke-patient will remain on aspirin and Plavix, he has agreed to go to the rehab unit here at the hospital for short-term rehab services if his insurance will approve it. Continue PT and OT, we are attempting to get the patient approved for TCU for inpatient rehab services. #2 chronic kidney disease stage IIIa-complicates care, medical course, recovery, and prognosis #3 essential hypertension-patient is on amlodipine, blood pressure will be monitored #4 hyperlipidemia-patient is on atorvastatin Total clinical time spent by myself addressing the patient's medical issues, reviewing all of his data, and collaborating with patient's care team: 25 minutes Charges/Coding Visit Charges Inpatient E&M: 54444 Subs Hosp L1
[2023-01-03] MEDS: Atorvastatin Calcium 80 MG Tablet PO (19:58)
[2023-01-03 22:34] VITALS: BP 131/76; PULSE 73; RESP 16; TEMP 36.6; O2SAT 96
[2023-01-04 04:46] VITALS: BMI 23.9
[2023-01-04 07:40] VITALS: BP 145/82; PULSE 61; RESP 18; TEMP 36.9; O2SAT 94
[2023-01-04] MEDS: amLODIPine 10 MG Tablet PO (09:08)
[2023-01-04] MEDS: Aspirin 81 MG TAB.CHEW PO (09:08)
[2023-01-04] MEDS: Enoxaparin 40 MG/0.4 ML Syringe SC (09:08)
[2023-01-04] MEDS: Ensure Plus High Protein 120 ML LIQUID PO ×4 (09:08→20:25)
[2023-01-04] MEDS: Multivitamins,Ther W-Minerals Tablet 1 TABLET PO (09:08)
[2023-01-04] MEDS: Clopidogrel Bisulfate 75 MG Tablet PO (09:09)
--- NOTE | 2023-01-04 11:00 | CASEMGMT ---
Social Work Met with patient in room today and reviewed that [facility] TCU is in outbreak status with Covid. Patient states I'm not afraid of it, but I'm not asking for it either. Patient asked about [facility], as this is close by to patient's home. Discussed with patient that having a list of SNF options would be better for patient to make an informed decision. Patient agreed. Asked Discharge contract assistant to print list up for patient, but that patient is voicing interest in [facility] if in the patient's insurance network. PLAN: pending SNF. -BLAIR Bagley
--- NOTE | 2023-01-04 11:11 | CASEMGMT ---
Discharge Planning A list of SNF providers including quality and resource use data and consistent with the patient?s preferred geographic region, medical needs, and insurance network were printed and provided from the [employer] Guide. Maria Fernanda Garcia, Discharge Planning Asst.
--- NOTE | 2023-01-04 11:30 | CASEMGMT ---
Discharge Planning Referral made to [facility] via [facility]. Maria Fernanda Garcia, Discharge Planning Asst.
--- NOTE | 2023-01-04 11:57 | CASEMGMT ---
Discharge Planning [facility] has accepted and will submit for pre-cert. SW updated. Maria Fernanda Garcia, Discharge Planning Asst.
[2023-01-04 15:20] VITALS: BP 119/64; PULSE 68; RESP 16; TEMP 36.4; O2SAT 98
[2023-01-04 17:00] VITALS: BMI 23.9
--- NOTE | 2023-01-04 17:31 | PN.HOSP_ITS ---
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) Other specified abnormal findings of blood chemistry (12/30/22) Subjective Subjective Patient was seen and examined today, we are currently awaiting approval for the patient to go to a penitentiary facility-[facility] [address] Objective Data Objective Data Vital Signs: Vital Signs Temp Pulse Resp BP Pulse Ox O2 Del Method 97.6 F L 68 16 119/64 98 Room Air 01/04/23 15:20 01/04/23 15:20 01/04/23 15:20 01/04/23 15:20 01/04/23 15:20 01/04/23 15:20 Oxygen Delivery Method Room Air Weight: 75.9 kg Body Mass Index (BMI) 23.9 Intake & Output: Intake and Output for Last 24 Hours 01/02/23 01/03/23 01/04/23 23:59 23:59 23:59 Intake Total 800 / 800 480 / 480 Output Total 300 / 300 100 / 100 Balance 500 / 500 480 / 480 -100 / -100 Lab / Micro Data 01/02/23 05:24 01/02/23 05:24 Physical Exam Narrative alert, oriented x3, no apparent distress, average body habitus and healthy a ppearing General Appearance: cooperative, well kempt and well developed Orientation / Consciousness: awake, oriented to person, oriented to place and oriented to time HEENT normocephalic and moist oral mucous membranes Eyes PERRL, EOMs intact bilaterally and conjunctivae normal Neck supple, no JVD, thyroid normal and no carotid bruits General: trachea midline Resp normal respiratory effort and clear to auscultation bilaterally Auscultation: Negative for rales, rhonchi or wheezes Cardio regular rate, regular rhythm, S1 normal heart sound, S2 normal heart sound, no murmurs, no rub and no gallops GI normal to inspection, nondistended, normoactive bowel sounds, soft to palpation, non-tender and non-distended Extremity no clubbing, cyanosis or edema Skin no rashes or lesions noted General Skin Exam: no breakdown Neuro oriented x3, CN's II-XII intact bilaterally, moves all extremities, no focal motor deficits and no sensory deficits noted Sensorium / Orientation: awake and alert Speech: speech normal Psych affect normal Assessment & Plan Assessment/Plan (1) Acute CVA (cerebrovascular accident): (2) Case-neglect of left side: PLAN: Plan 1. Right MCA ischemic stroke-patient will remain on aspirin and Plavix, continue PT and OT, we are awaiting approval for the patient to go to a penitentiary facility-[facility] [address]. #2 chronic kidney disease stage IIIa-complicates care, medical course, recovery, and prognosis #3 essential hypertension-patient is on amlodipine, blood pressure will be monitored #4 hyperlipidemia-patient is on atorvastatin Total clinical time spent by myself addressing the patient's medical issues, reviewing all of his data, and collaborating with patient's care team: 25 minutes Charges/Coding Visit Charges Inpatient E&M: 63327 Subs Hosp L1
[2023-01-04] MEDS: Atorvastatin Calcium 80 MG Tablet PO (20:25)
[2023-01-04 21:57] VITALS: BP 142/72; PULSE 74; RESP 16; TEMP 36.9; O2SAT 94
[2023-01-05 03:00] VITALS: BP 148/68; PULSE 60; RESP 16; TEMP 36.7; O2SAT 94
[2023-01-05 03:55] VITALS: BMI 23.9
--- NOTE | 2023-01-05 08:03 | PCM.PN.HOSP ---
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) Other specified abnormal findings of blood chemistry (12/30/22) Objective Data Objective Data Vital Signs: Vital Signs Temp Pulse Resp BP Pulse Ox O2 Del Method 98.1 F 60 16 148/68 H 94 Room Air 01/05/23 03:00 01/05/23 03:00 01/05/23 03:00 01/05/23 03:00 01/05/23 03:00 01/05/23 03:00 Oxygen Delivery Method Room Air Weight: 167 lb 5.294 oz Body Mass Index (BMI) 23.9 Intake & Output: Intake and Output for Last 24 Hours 01/03/23 01/04/23 01/05/23 23:59 23:59 23:59 Intake Total 480 / 480 120 / 120 Output Total 100 / 100 Balance 480 / 480 -100 / 20 120 / 120 Lab / Micro Data 01/02/23 05:24 01/02/23 05:24 Assessment & Plan Assessment/Plan (1) Acute CVA (cerebrovascular accident): (2) Case-neglect of left side: PLAN: Plan 1. Right MCA ischemic stroke-patient will remain on aspirin and Plavix, continue PT and OT, we are awaiting approval for the patient to go to a snf facility-[facility]. #2 chronic kidney disease stage IIIa-complicates care, medical course, recovery, and prognosis #3 essential hypertension-patient is on amlodipine, blood pressure will be monitored #4 hyperlipidemia-patient is on atorvastatin Total clinical time spent by myself addressing the patient's medical issues, reviewing all of his data, and collaborating with patient's care team: 25 minutes
[2023-01-05] MEDS: Multivitamins,Ther W-Minerals Tablet 1 TABLET PO (08:48)
[2023-01-05] MEDS: Aspirin 81 MG TAB.CHEW PO (08:48)
[2023-01-05] MEDS: amLODIPine 10 MG Tablet PO (08:48)
[2023-01-05] MEDS: Enoxaparin 40 MG/0.4 ML Syringe SC (08:48)
[2023-01-05] MEDS: Ensure Plus High Protein 120 ML LIQUID PO (08:48)
[2023-01-05] MEDS: Clopidogrel Bisulfate 75 MG Tablet PO (08:49)
[2023-01-05 09:00] VITALS: BP 134/67; PULSE 96; RESP 18; TEMP 36.8; O2SAT 97
--- NOTE | 2023-01-05 09:52 | CASEMGMT ---
Per physician patient said he would like to go home at discharge and not [facility]. SW asked patient if he would like therapy and nursing to come see him at home. Patient said he would be okay with this. SW told patient we will get him a home health list. MISTY asked Maria Fernanda d/jose luis director strategic planning to please print a home health list. Eileen SCHROEDER
--- NOTE | 2023-01-05 09:55 | CASEMGMT ---
Discharge Planning Notified that patient was returning home. Maria Fernanda Garcia, Discharge Planning Asst.
--- NOTE | 2023-01-05 09:56 | DCINST_ITS ---
Discharge Instructions Diet Discharge Diet: 2000 mg Sodium Diet Activity Discharge Activity: Return to Normal Activity and May Not Drive Weight Bearing Status: Weight bearing as tolerated Dressing / Incision Call your doctor if you observe: Fever of 101 or Higher, Coldness, Increased Pain, Numbness or Tingling, Change in Color, Inability to urinate, Inability to have a bowel movement, Shortness of breath, Dizziness, Fainting spells, Swelling in the ankles, Chest pain, Prolonged hiccupping, Increased palpitations (irregular heartbeat) and Calf discomfort Follow Up Care When: IN 2 WEEKS Test Results: Test results from this visit will be discussed in further detail at your follow- up appointment, if applicable. Discharge Plan Admission Admit Date/Time: 12/30/22 16:06 Primary Reason for Your Visit: Right MCA ischemic stroke. Attending Provider: Bruce Ricardo Primary Care Provider: Cholo Friedman Consulting Providers: Vinod Lockwood; Meli Aburto; Omari Hoyos Discharge Orders/Prescriptions Prescriptions: New atorvastatin 80 mg Tablet 80 mg PO QHS 30 Days Qty: 30 3RF sennosides-docusate sodium [Stool Softener-Stimulant Laxat] 8.6-50 mg Tablet 2 tab PO BID PRN PRN (Reason: Constipation) Qty: 0 0RF clopidogrel 75 mg Tablet 75 mg PO DAILY 21 Days Qty: 21 0RF amlodipine 10 mg Tablet 10 mg PO DAILY 30 Days Qty: 30 2RF Rx Instructions: Hold for SBP less than 120 mmHg Continued amlodipine 5 MG tablet 5 mg PO DAILY Patient Comments: BLOOD PRESSURE aspirin 81 mg Tablet,Chewable 81 mg PO BREAKFAST 30 Days Qty: 30 0RF Discontinued atorvastatin 40 mg Tablet 40 mg PO QHS 30 Days Qty: 30 0RF No Action terazosin 2 MG capsule 2 mg PO QHS Patient Comments: BLOOD PRESSURE Therems-M 1 TABLET tablet 1 tab PO DAILY Patient Comments: SUPPLEMENT Referrals / Follow Up: Robert Sebastian MD [Non-Staff -Ordering Privileges] - Within 2 Weeks Cholo Friedman MD [Primary Care Provider] - Disposition Disposition (needs filled in before D/C Order can be placed): Home Health Service
[2023-01-05 10:00] VITALS: PULSE 96; RESP 18; O2SAT 97
--- NOTE | 2023-01-05 10:42 | CASEMGMT ---
Discharge Planning A list of home healthcare providers including quality and resource use data and consistent with the patient?s preferred geographic region, medical needs, and insurance network was created in [employer] Guide. This list was provided to the RN RADHA. Maria Fernanda Garcia, Discharge Planning Asst.
--- NOTE | 2023-01-05 10:42 | NURSING ---
Step son Timothy Vincent [ ] called asking to get updates and information on pt. Timothy is not listed on pt's contact list. This RN spoke with pt about whether he would like him added to contact list or not. Pt stated that Timothy and his sister Nikkie are not to get any information on him because they only want his money. Eileen JAY notified of pt comment of step children constantly asking him for his money.
--- NOTE | 2023-01-05 10:49 | CASEMGMT ---
SW provided patient with a a list of?home health providers including quality and resource use data and consistent with patient?s preferred geographic region, medical needs, and insurance network were provided from the [employer] Guide. Patient was interested in [facility]. SW let patient know SW will work on referral and get back to him. MISTY called Fannie at [facility] and left a message with referral. Await response. Eileen SCHROEDER
--- NOTE | 2023-01-05 11:32 | CASEMGMT ---
MISTY received a call from Fannie at [facility] and they can take patient. [facility] will be able to go out on Monday and they will give patient a call tomorrow. MISTY went back to patient's room and explained this to patient and he was in agreement. Plan: d/c home with [facility] fpc, PT, and OT. Eileen SCHROEDER
[2023-01-05 14:00] VITALS: PULSE 96
--- NOTE | 2023-01-05 14:30 | DS.PCM_ITS ---
Providers Date of Admission: 12/30/22 Date of Discharge: 01/05/23 Primary Care Physician: Dr. Cholo Friedman MD Reason For Visit: CVA Diagnosis Discharge Diagnosis (1) Acute CVA (cerebrovascular accident): Status: Acute Code(s): I63.9 - Cerebral infarction, unspecified (2) Case-neglect of left side: Status: Acute Code(s): R41.4 - Neurologic neglect syndrome Plan This 87-year-old gentleman with history of multiple TIAs was admitted with left- sided weakness, started several hours before presentation. Was dropping things from his left arm. Prior to this patient was admitted on 12/21/2022 for TIA, concern for visual changes and left upper extremity paresthesia. CVA was ruled out. 1. Right MCA ischemic stroke: The patient was admitted to PCU. In ED stroke neurologist at [facility] was consulted and patient was found not a candidate for TNK. NIH stroke scale was 2. At that time CTA head and neck showed moderate plaque with moderate stenosis of right ICA moderate to marked plaque with high-grade stenosis of left ICA, no acute abnormalities. Carotid ultrasound shows less than 50% stenosis of right and left external and common carotid arteries. Patient had a stroke work-up. This time, MRI brain shows right MCA ischemic infarct. CTA head and neck again done shows no significant acute change but slight worsening of right P1 segment. MORRO was done on 12/30/2022 reported hypermobile atrial septum and bubble contrast study negative for [id number] interatrial shunt. [facility] neurologist saw and recommended Plavix 100 mg which was given and continue 75 mg plus aspirin daily for 90 days. Then aspirin 325 mg monotherapy. High- dose statin. Event monitor for long-term monitoring. Patient was waiting for pre-CERT but patient now [place] not want [facility] [place] [facility]. [facility] did not want to go to because of COVID 19 and he feels he has improvement in left upper extremity weakness. -patient will remain on aspirin and Plavix, continue PT and OT, we are awaiting approval for the patient to go to a intermediate facility-[facility]. #2 chronic kidney disease stage IIIa-complicates care, medical course, recovery, and prognosis #3 essential hypertension-patient is on amlodipine, blood pressure will be monitored #4 hyperlipidemia-patient is on atorvastatin Clinical Impression(s) from Imaging Studies Brain CT 12/29/22 17:39 IMPRESSION: Age-related changes. Head/Neck CTA 12/29/22 17:53 IMPRESSION: Stenosis at the basilar artery similar to the previous study. Possible slightly increasing narrowing at the right P1 segment. Chest X-Ray 12/29/22 18:30 IMPRESSION: No radiographic evidence of acute cardiopulmonary disease. Brain MRI 12/30/22 09:00 IMPRESSION: Moderate acute right middle cerebral artery watershed territory infarction. Chronic involutional and white matter changes. Transesophageal Echocardiogram 12/30/22 16:10 Interpretation Summary Normal LV size. Left ventricular systolic function is normal. Hypermobile atrial septum. The estimated ejection fraction is 65 %. Medications at Discharge Home Medications amlodipine 5 mg tablet 5 mg PO DAILY 01/26/15 terazosin 2 mg capsule 2 mg PO QHS 01/26/15 multivitamin,ro-gexc-nerzhbon 27 mg-0.4 mg tablet (Therems-M) 1 tab PO DAILY 02/02/15 amlodipine 10 mg tablet 10 mg PO DAILY 30 days #30 tabs 01/05/23 aspirin 81 mg chewable tablet 81 mg PO BREAKFAST 30 days #30 tabs 01/05/23 atorvastatin 80 mg tablet 80 mg PO QHS 30 days #30 tabs 01/05/23 clopidogrel 75 mg tablet (Plavix) 75 mg PO DAILY 30 days #30 tabs 01/05/23 sennosides 8.6 mg-docusate sodium 50 mg tablet (Stool Softener-Stimulant Laxative) 2 tab PO BID PRN PRN Constipation #0 tabs 01/05/23 Weight / BMI Weight Weight: 167 lb 5.294 oz Body Mass Index (BMI) 23.9 ABG / Lab / Microbiology Data 01/02/23 05:24 01/02/23 05:24 D/C Instructions Discharge Diet: 2000 mg Sodium Diet Weight Bearing Status: Weight bearing as tolerated Call your doctor if you observe: Fever of 101 or Higher, Coldness, Increased Pain, Numbness or Tingling, Change in Color, Inability to urinate, Inability to have a bowel movement, Shortness of breath, Dizziness, Fainting spells, Swelling in the ankles, Chest pain, Prolonged hiccupping, Increased palpitations (irregular heartbeat) and Calf discomfort When: IN 2 WEEKS Meaningful Use Info Meaningful Use Diagnoses (Choose all that apply): Ischemic CVA CVA Therapy Assessed for PT,OT and/or ST?: Yes Ischemic Stroke Antithrombotic order at d/c?: Yes Dx of Atrial fib/flutter?: No Statins at discharge?: Yes Primary Dx Acute Ischemic CVA?: Yes Discharge Plan Admission Admit Date/Time: 12/30/22 16:06 Primary Reason for Your Visit: Right MCA ischemic stroke. Attending Provider: Bruce Ricardo Primary Care Provider: Cholo Friedman Consulting Providers: Vinod Lockwood; Meli Aburto; Omari Hoyos Discharge Orders/Prescriptions Prescriptions: New atorvastatin 80 mg Tablet 80 mg PO QHS 30 Days Qty: 30 3RF sennosides-docusate sodium [Stool Softener-Stimulant Laxat] 8.6-50 mg Tablet 2 tab PO BID PRN PRN (Reason: Constipation) Qty: 0 0RF amlodipine 10 mg Tablet 10 mg PO DAILY 30 Days Qty: 30 2RF Rx Instructions: Hold for SBP less than 120 mmHg clopidogrel [Plavix] 75 mg tablet 75 mg PO DAILY 30 Days Qty: 30 2RF Continued amlodipine 5 MG tablet 5 mg PO DAILY Patient Comments: BLOOD PRESSURE aspirin 81 mg Tablet,Chewable 81 mg PO BREAKFAST 30 Days Qty: 30 0RF Rx Instructions: 81 mg daily for 90 days along with Plavix 75 mg daily then aspirin monotherapy 325 mg daily. Discontinued atorvastatin 40 mg Tablet 40 mg PO QHS 30 Days Qty: 30 0RF No Action terazosin 2 MG capsule 2 mg PO QHS Patient Comments: BLOOD PRESSURE Therems-M 1 TABLET tablet 1 tab PO DAILY Patient Comments: SUPPLEMENT Other Ambulatory Orders: 30 Day Event Recorder Preventi (Urgent) Timeframe: 1 Day Facility: [facility] - Location: Cardiovascular Services Ordered By: Dr. Bruce Ricardo Referrals / Follow Up: Robert Sebastian MD [Non-Staff -Ordering Privileges] - Within 2 Weeks Cholo Friedman MD [Primary Care Provider] - 01/16/23 2:40 pm Disposition Disposition (needs filled in before D/C Order can be placed): Home Health Service
--- NOTE | 2023-01-05 15:00 | CASEMGMT ---
Patient stated he has a Healthcare Power of Solar Installer Pv (HCPOA) and Healthcare Living Will (HCLW) on file. Unfortunately these documents are not on file at [facility]. SW notified patient these documents are not on file and he should bring a copy to [facility]. Eileen Morrison DIGITAL MARKETING SPECIALIST ALEXANDRE
[2023-01-05 16:00] VITALS: BMI 23.9
[2023-01-05 16:36] VITALS: BP 146/69; PULSE 65; RESP 18; TEMP 36.7; O2SAT 97
== END 2023-01-05 17:58 | disposition home health service (06) | DRG 65 ==
LOC: ED 20:21 → PCU 20:31
PROVIDERS: Internal Medicine; Admitting Provider Hospitalist; Emergency Provider Emergency Medicine; PCP Internal Medicine; Visit Provider Internal Medicine
DX: I63.411 Cerebral infarction due to embolism of right middle cerebral artery (principal); R41.4 Neurologic neglect syndrome; N18.32 Chronic kidney disease, stage 3b; G83.24 Monoplegia of upper limb affecting left nondominant side; I12.9 Hypertensive chronic kidney disease with stage 1 through stage 4 chronic kidney disease, or unspecified chronic kidney disease; E78.5 Hyperlipidemia, unspecified; R29.810 Facial weakness; R29.702 NIHSS score 2; Z66 Do not resuscitate; Z79.01 Long term (current) use of anticoagulants; Z79.02 Long term (current) use of antithrombotics/antiplatelets; Z79.82 Long term (current) use of aspirin; Z79.899 Other long term (current) drug therapy; Z87.891 Personal history of nicotine dependence
CPT/HCPCS: 36415; 70450; 70496; 70498; 70551; 71045; 80048; 82962; 84484; 85025; 85610; 85730; 93005; 93312; 93320; 93325; 94762; 97110; 97112; 97116; 97162; 97166; 97530; 97535; 99252; 99285; J7040; Q9967; A4216; G0463

== ENCOUNTER 2023-01-14 16:47 | Emergency (ER) | payer MEDICARE, SELFPAY ==
[2023-01-14] VITALS (7 sets, daily range): BP systolic 118–159; BP diastolic 52–94; PULSE 74–90; RESP 17–21; TEMP 36.6; O2SAT 95–99; BMI 23.5
--- NOTE | 2023-01-14 16:54 | CT_ITS ---
We are attempting to reach an attending provider to discuss findings. An addendum with communication details will be sent when the communication is complete. INDICATION: Neuro deficit, acute, stroke suspected EXAMINATION: CTA CAROTIDS AND BRAIN TECHNIQUE: Routine CTA of the head and neck was performed with post processing of the angiographic images for volumetric reconstructions. In addition, images were obtained of the [place] of [place]. Nascet criteria using the distal ICAs for comparison were used for evaluation of stenoses. 2-D and 3-D reconstructions were reviewed. A radiation dose optimization technique was used for this scan. IV Contrast dosage and agent: 100 cc [id number] COMPARISON: CTA head and neck from 12/29/2022 FINDINGS: --NECK: AORTIC ARCH AND BRANCHES: Atherosclerosis with no aneurysm, dissection, occlusion or high-grade stenosis. RIGHT CCA: No occlusion, significant stenosis or dissection. Mild atherosclerotic plaque. RIGHT ICA: No occlusion, significant stenosis or dissection. LEFT CCA: No occlusion, significant stenosis or dissection. Mild atherosclerotic plaque. LEFT ICA: No occlusion, significant stenosis or dissection. RIGHT VERTEBRAL ARTERY: No occlusion, significant stenosis or dissection. LEFT VERTEBRAL ARTERY: No occlusion, significant stenosis or dissection. NECK SOFT TISSUES: Subcentimeter low-attenuation thyroid lesions again noted. LUNG APICES: Small benign granulomatous calcification within left hemithorax. BONES: Skeletal degenerative changes with no acute osseous abnormality. --HEAD: --Anterior circulation: ICAs: Calcified plaque bilaterally but no occlusion or high-grade stenosis. ACAs: No significant stenosis at the visualized segments. ACOM: Present. MCAs: Patent bilaterally. Stable short segment focal stenosis of approximately 50% involving distal right M1 segment. No significant stenosis on the left. --Posterior circulation: PCOMs: Patent on the right and nonvisualized on the left. client care manager: No significant stenosis at the visualized segments. Congenital hypoplasia right P1 segment again noted. BASILAR ARTERY: Stable short segment stenosis of 50-70% along mid segment. VERTEBRAL ARTERIES: No significant stenosis at the intradural/visualized segments. No evidence of intracranial aneurysm or vascular malformation. CT/STROKE CTA Head AND Neck W/Con IMPRESSION: 1. 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 2. No acute arterial occlusive disease. 3. Subcentimeter thyroid nodules versus cysts. No additional follow-up recommended at this time based on size criteria and patient age. Electronically Signed: Omari Virk MD at 17:36 EDT ,
--- NOTE | 2023-01-14 16:54 | CT_ITS ---
We are attempting to reach an attending provider to discuss findings. An addendum with communication details will be sent when the communication is complete. INDICATION: Neuro deficit, acute, stroke suspected EXAMINATION: CT Head Stroke Protocol W/O Contrast Injection TECHNIQUE: Multiple axial images were obtained of the head without intravenous contrast. A radiation dose optimization technique was used for this scan. IV Contrast dosage and agent: None. COMPARISON: Head CT from 12/29/2022 and brain MRI from 12/30/2022. FINDINGS: BRAIN PARENCHYMA: No intra- or extra-axial hemorrhage. No evidence of acute major territorial infarct. No intracranial mass or mass effect. Bilateral deep and subcortical cerebral white matter lucencies again noted. Chronic cerebral involutional changes. CSF SPACES: Prominent cerebral sulci and extraaxial spaces secondary to involutional changes. No hydrocephalus. Basal cisterns are patent. Intracranial atherosclerotic calcifications. CALVARIUM, SKULL BASE, PARANASAL SINUSES AND MASTOID AIR CELLS: Calvarium is intact. Mild right maxillary sinus mucosal thickening. Mastoid air cells are well-pneumatized. ORBITS: No acute findings, as visualized. ASPECTS Score for Acute Stroke (if applicable): 10 CT/STROKE Brain/Head without Cont IMPRESSION: Stable appearance of brain atrophy and chronic small vessel ischemic changes. No evidence of acute intracranial abnormality. Electronically Signed: Omari Virk MD at 17:28 EDT ,
--- NOTE | 2023-01-14 16:55 | ED.VIS.STROK ---
HPI History of Present Illness Chief Complaint: Stroke Alert Informant: patient Onset/Context/Timing Onset: Today Narrative Narrative: Patient presents with concerns for left-sided weakness and slurred speech. He states just after noon today he was mowing the yard and felt like his left side was getting weak. He went to scratch his nose with his left hand and states he kept hitting different areas of his face but cannot control his hand movements. His neighbor felt that his speech was slurred and noted left-sided facial droop. Patient does report a history of a stroke in the past and is on aspirin and Plavix. He denies any residual deficits from that prior stroke. He does feel his symptoms are improving but not quite back to normal at this time. 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 chronic kidney disease Epilepsy Former tobacco use Glaucoma Case-neglect of left side History of diet-controlled diabetes History of hypertension History of TIAs HLD (hyperlipidemia) HTN (hypertension) AIMEE (obstructive sleep apnea) TIA (transient ischemic attack) Umbilical hernia Home Medications terazosin 2 mg capsule 2 mg PO QHS 01/26/15 [History Last Taken Unknown] multivitamin,[id number]-[id number] 27 mg-0.4 mg tablet (Therems-M) 1 tab PO DAILY 02/02/15 [History Last Taken Unknown] amlodipine 10 mg tablet 10 mg PO DAILY 30 days #30 tabs 01/05/23 [Rx Last Taken Unknown] aspirin 81 mg chewable tablet 81 mg PO BREAKFAST 30 days #30 tabs 01/05/23 [Rx Last Taken Unknown] atorvastatin 80 mg tablet 80 mg PO QHS 30 days #30 tabs 01/05/23 [Rx Last Taken Unknown] clopidogrel 75 mg tablet (Plavix) 75 mg PO DAILY 30 days #30 tabs 01/05/23 [Rx Last Taken Unknown] sennosides 8.6 mg-docusate sodium 50 mg tablet (Stool Softener-Stimulant Laxative) 2 tab PO BID PRN PRN Constipation #0 tabs 01/05/23 [Rx Last Taken Unknown] Allergy/AdvReac Type Severity Reaction Status Date / Time No Known Allergies Allergy Verified 12/29/22 17:30 Family History Mother Hypertension Diabetes Uterine cancer Brother CAD (coronary artery disease) Heart disease Hypertension Surgical History H/O hernia repair H/O vein stripping History of skin surgery Hx of cholecystectomy Social History household members: none housing: house Smoking Status: Never smoker how long ago did patient quit smokin04/17/1968 alcohol intake: never substance use type: does not use ROS ROS ED Constitutional Constitutional ED: Denies chills or fever(s) Eyes Eyes: Denies change in vision or discharge from eye(s) ENT ENT ED: Denies discharge from eye(s), rhinorrhea or sore throat Cardiovascular Cardiovascular: Denies chest pain or palpitations Respiratory/Chest Respiratory/Chest: Denies cough or dyspnea Gastrointestinal Gastrointestinal: Denies abdominal pain, nausea or vomiting Musculoskeletal Musculoskeletal: Denies back pain or extremity pain Integumentary Denies Abrasions or rash Neurologic Neurologic: Reports weakness; Denies headache(s) Psychiatric Psychiatric: Denies anxiety or depression Allergic/Immunologic Allergic/Immunologic ED: Denies lip swelling or urticaria EXAM Physical Exam Const Vital Signs: 01/14/23 16:52 01/14/23 17:14 01/14/23 17:14 Temperature 97.8 F Temperature Source Temporal Pulse Rate 90 80 Respiratory Rate 17 Blood Pressure 118/73 134/52 H Blood Pressure Mean 88 79 Pulse Ox 97 97 Oxygen Delivery Method Room Air Room Air Room Air 01/14/23 17:14 01/14/23 17:30 01/14/23 18:09 Temperature Temperature Source Pulse Rate 78 80 76 Respiratory Rate 18 18 21 H Blood Pressure 134/52 H 159/75 H 146/74 H Blood Pressure Mean 79 103 98 Pulse Ox 95 99 96 Oxygen Delivery Method Room Air Room Air Room Air 01/14/23 18:30 01/14/23 19:00 Temperature Temperature Source Pulse Rate 78 74 Respiratory Rate 20 H 18 Blood Pressure 151/94 H 154/73 H Blood Pressure Mean 113 100 Pulse Ox 95 96 Oxygen Delivery Method Room Air Room Air Positive well nourished and well developed General Appearance ED: well developed HEENT Reports moist mucous membranes Chest Wall inspection of chest normal and palpation of chest normal Chest Narrative: 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 Resp normal respiratory effort and clear to auscultation bilaterally Cardio Rate: regular rate Rhythm: regular rhythm GI soft to palpation and non-tender Extremity normal to inspection Neuro oriented x3 Neuro Narrative: See NIH stroke score NIHSS NIHSS Initial: 1a Level of Consciousness: 0 1b LOC Questions (Score 2 if aphasic/stupor): 0 1c LOC Commands (Only score 1st attempt): 0 2 Best Gaze (If aphasic, use reflexive mvmts.): 0 3 Visual: 0 4 Facial Palsy: 1 5 Motor Arm Right (UN = amputation/fusion): 0 5 Motor Arm Left: 0 6 Motor Leg Right: 0 6 Motor Leg Left: 0 7 Limb ataxia (Only + if out of proportion): 0 8 Sensory (Aphasia/stupor=0 or 1, coma=2): 0 9 Best Language: 0 10 Dysarthria (mute, coma=2, intubated=UN): 1 11 Extinction and Inattention (only scored if +): 0 Total Score: 2 MDM MDM MDM Narrative Medical decision making narrative: Patient presents just before 5 PM for evaluation. Stroke alert is initiated on arrival. Lab Data Attestation: I reviewed the patient's lab results. Labs: Laboratory Results - last 24 hr 01/14/23 01/14/23 16:54 16:55 WBC 8.2 RBC 5.63 Hgb 16.9 H Hct 49.6 MCV 88.1 MCH 30.0 MCHC 34.1 RDW Std Deviation 41.0 RDW Coeff of Jesus 12.6 Plt Count 186 MPV 9.9 Immature Gran % (Auto) 0.500 Neut % (Auto) 80.5 H Lymph % (Auto) 9.0 L Crockett % (Auto) 8.5 Eos % (Auto) 0.9 Baso % (Auto) 0.6 Absolute Neuts (auto) 6.6 Absolute Lymphs (auto) 0.74 L Nucleated RBC % 0 PT 15.0 H INR 1.2 APTT 30.4 Sodium 138 Potassium 4.0 Chloride 107 Carbon Dioxide 27.0 Anion Gap 4 L BUN 27 H Creatinine 1.64 H Estim Creat Clear Calc 33.38 Est GFR (MDRD) Af Amer 51 L Est GFR (MDRD) Non-Af 43 L BUN/Creatinine Ratio 16.5 Glucose 114 H Calcium 9.5 Troponin I High Sens 8 POC Glucose 119 H Radiography Chest X-Ray - ED: 1 View, Read by ED Physician and Chronic Changes Diagnostic Testing: Clinical Impression(s) from Imaging Studies Brain CT 01/14/23 16:54 IMPRESSION: Stable appearance of brain atrophy and chronic small vessel ischemic changes. No evidence of acute intracranial abnormality. Electronically Signed: Omari Virk MD at 17:28 EDT , ADDENDUM: 01/14/23 175 IMPRESSION: Stable appearance of brain atrophy and chronic small vessel ischemic changes. No evidence of acute intracranial abnormality. N.B. : The above Results were Read Back by Omari Virk MD to Lilian Arellano MD, and understanding confirmed on 01/14/2023 17:45:10 (ET). Electronically Signed: Omari Virk MD at 17:28 EDT , Head/Neck CTA 01/14/23 16:54 IMPRESSION: 1. 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 2. No acute arterial occlusive disease. 3. Subcentimeter thyroid nodules versus cysts. No additional follow-up recommended at this time based on size criteria and patient age. Electronically Signed: Omari Virk MD at 17:36 EDT , ADDENDUM: 01/14/23 175 IMPRESSION: 1. 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 2. No acute arterial occlusive disease. 3. Subcentimeter thyroid nodules versus cysts. No additional follow-up recommended at this time based on size criteria and patient age. N.B. : The above Results were Read Back by Omari Virk MD to Lilian Arellano MD, and understanding confirmed on 01/14/2023 17:45:45 (ET). Electronically Signed: Omari Virk MD at 17:36 EDT , Chest X-Ray 01/14/23 17:55 IMPRESSION: Normal x-ray examination of the chest. Electronically Signed: Marcin Mcdonough MD at 18:27 EDT , EKG Initial EKG: Attestation: I personally reviewed and interpreted this EKG as follows: Interpretation: Sinus Rhythm (Sinus rhythm with a first-degree AV block. Rate is 83 bpm. No acute ischemia.) Treatment and Re-Evaluation Narrative: I was in the room when the stroke neurologist evaluated the patient. Given that the patient just had a stroke a couple weeks ago he is not a candidate for TNK at this time. 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 If he gets dehydrated or blood flow decreases he is likely to get recurrent stroke symptoms. Given the patient just had a full stroke work-up he does not feel the patient needs to be readmitted for further work-up. CBC reveals a white count of 8.2 and hemoglobin is concentrated at 16.9. Chemistry studies reveal a BUN of 27 and a creatinine 1.64. This is increased over his recent visit. Glucose is normal at 114. Troponin is normal at 8. Portable chest x-ray reveals no acute findings but chronic changes are noted per my interpretation. Radiology interpretation is also reviewed. CT of the head as well as CTA of the head and neck reveals stable changes noted from prior with no evidence of an acute infarct. Given the patient did have concentrated hemoglobin level and an elevation in his creatinine he was given a liter IV fluid bolus here. Following this patient is able to get up and ambulate to the restroom and back without difficulty. He feels that he is back to his baseline. He is already on aspirin and Plavix and will continue this. [facility] neurologist did offer a research study that they are currently undertaking to evaluate different medical therapies for patients with intracranial vascular disease. The patient does not want to follow-up with them at this time, however if they do change their mind I encouraged them to call the ER where the phone number for the stroke neurology clinic could be obtained for them. He has a follow-up appointment scheduled with his PCP in a few days. Discharge Plan Triage Chief Complaint: Stroke Alert ED Provider: Lilian Arellano Dx/Rx/DC Orders Clinical Impression: Stroke-like symptom, Dehydration Instructions: ED Dehydration (Adult), ED TIA: Transient Ischemic Attack Prescriptions: No Action terazosin 2 MG capsule 2 mg PO QHS Patient Comments: BLOOD PRESSURE Therems-M 1 TABLET tablet 1 tab PO DAILY Patient Comments: SUPPLEMENT atorvastatin 80 mg Tablet 80 mg PO QHS 30 Days Qty: 30 3RF sennosides-docusate sodium [Stool Softener-Stimulant Laxat] 8.6-50 mg Tablet 2 tab PO BID PRN PRN (Reason: Constipation) Qty: 0 0RF amlodipine 10 mg Tablet 10 mg PO DAILY 30 Days Qty: 30 2RF Rx Instructions: Hold for SBP less than 120 mmHg clopidogrel [Plavix] 75 mg tablet 75 mg PO DAILY 30 Days Qty: 30 2RF aspirin 81 mg Tablet,Chewable 81 mg PO BREAKFAST 30 Days Qty: 30 0RF Rx Instructions: 81 mg daily for 90 days along with Plavix 75 mg daily then aspirin monotherapy 325 mg daily. Primary Care Provider: Cholo Friedman Referrals: Cholo Friedman MD [Primary Care Provider] - Keep [facility] appointment Activity Restrictions/Additional Instructions: The stroke neurologist at [facility] did offer a research program where they are evaluating different medical therapies for patients with blockages in the blood vessels in the brain. If you decide you would like to talk with them about this program, please reach out to the emergency room where the stroke neurology clinic number could be provided for you to follow-up in [place]. Disposition Disposition: Home, Self Care
[2023-01-14 17:05] LABS: Absolute Lymphocyte Count 0.74 X10^3/uL (0.83-4.51); Absolute Neutrophil Count 6.6 X10^3/uL (2.0-7.7); Basophil# 0.05 X10^3/uL; Basophil% 0.6 % (0-1); Eosinophil# 0.07 X10^3/uL; Eosinophils% 0.9 % (0-5); Hematocrit 49.6 % (40-54); Hemoglobin 16.9 g/dL (13.0-16.5); Lymphocyte # 0.74 X10^3/ul (0.83-4.51); Mean Corp Hgb Conc 34.1 g/dL (32-36); Mean Corpuscular Volume 88.1 fL (80-94); Mean Platelet Vol. 9.9 fl (6.2-12.0); Monocyte% 8.5 % (0-10); NRBC Flagged by Analyzer 0 % (0-5); Neutrophil # 6.59 X10^3/uL (2.7-7.7); Neutrophil % 80.5 % (47-70); Platelet Count 186 K/mm3 (150-450); RBC Distribution Width CV 12.6 % (11.6-14.6); Red Blood Count 5.63 M/mm3 (4.6-6.2); White Blood Count 8.2 K/mm3 (4.4-11.0)
[2023-01-14 17:13] LABS: Bedside Glucose 119 mg/dL (74-106)
[2023-01-14 17:16] LABS: International Normalized Ratio 1.2
[2023-01-14 17:17] LABS: Partial Thromboplast Time 30.4 Seconds (24.1-36.2)
[2023-01-14 17:24] LABS: Anion Gap 4 (5-15); BUN 27 mg/dL (7-18); BUN/Creat Ratio 16.5 RATIO (10-20); Calcium,Total 9.5 mg/dL (8.5-10.1); Chloride 107 mmol/L (98-107); Creatinine, Serum 1.64 mg/dL (0.70-1.30); EST Glomerular Filtration Rate 43 mL/min (>60); Est Glom Filt Rate - Afr Amer 51 mL/min (>60); Estimated Creatinine Clearance 33.38 ml/min; Glucose 114 mg/dL (74-106); Sodium Level 138 mmol/L (136-145); Troponin-I HS 8 pg/mL (3.0-78.0)
--- NOTE | 2023-01-14 17:55 | RAD_ITS ---
STUDY: X-RAY CHEST REASON FOR EXAM: Male, 87 years old. Neuro deficit, acute, stroke suspected TECHNIQUE: Single AP portable view of the chest. COMPARISON: 12/29/2022 FINDINGS: The lungs are clear and expanded. There is no demonstrated pleural abnormality. Normal size heart. Normal mediastinum and nisreen. Normal visualized pulmonary arteries. Normal visualized aortic arch and descending thoracic aorta. Normal visualized thoracic spine. Normal visualized ribs, clavicles, and shoulders. There is no demonstrated abnormality of the visualized soft tissue structures of the upper abdomen. RAD/Chest 1 View IMPRESSION: Normal x-ray examination of the chest. Electronically Signed: Marcin Mcdonough MD at 18:27 EDT ,
[2023-01-14] MEDS: 0.9% Normal Saline (1000mL) 1,000 ML 999 ML IV (17:58)
== END 2023-01-14 19:45 | disposition home or self-care (01) ==
PROVIDERS: Emergency Provider Emergency Medicine; PCP Internal Medicine; Visit Provider Emergency Medicine
DX: R29.810 Facial weakness (principal); N18.31 Chronic kidney disease, stage 3a; E86.0 Dehydration; I12.9 Hypertensive chronic kidney disease with stage 1 through stage 4 chronic kidney disease, or unspecified chronic kidney disease; R47.81 Slurred speech; G47.33 Obstructive sleep apnea (adult) (pediatric); Z79.01 Long term (current) use of anticoagulants; Z86.73 Personal history of transient ischemic attack (TIA), and cerebral infarction without residual deficits; Z79.899 Other long term (current) drug therapy; Z79.82 Long term (current) use of aspirin
CPT/HCPCS: 70450; 70496; 70498; 71045; 80048; 82962; 84484; 85025; 85610; 85730; 93005; 96372; 99285; J7030; Q9967; A4216

== ENCOUNTER 2023-04-24 09:14 | Day surgery (SDC) | payer MEDICARE, SELFPAY ==
--- OUTSIDE RECORDS SUMMARY | 2023-04-20 09:34 | XMS RPT_ITS | CCD ---
Author Name Unknown Address [id number] [place] [address] Organization [facility] Care Team Providers Care Manager Front Name Role Phone Velia Thacker Unavailable UnavailCHOLO Kimble Unavailable Elder BOLTON, Cholo Hill Primary Care Provider [phone] Elder BOLTON, Cholo Hill Primary Care Provider [phone] Elder BOLTON, Cholo Hill Primary Care Provider [phone] CHOLO FRIEDMAN Primary Care Unavailable LAURITA FIGUEROA Attending Unavailable CHOLO FRIEDMAN Attending Unavailable CHOLO FRIEDMAN Primary Care Unavailable CHOLO FRIEDMAN Referring Unavailable CHOLO FRIEDMAN Primary Care Unavailable CHOLO FRIEDMAN Primary Care Unavailable LAURITA FIGUEROA Referring Unavailable CHOLO FRIEDMAN Primary Care Unavailable LAURITA FIGUEROA Attending Unavailable CHOLO FRIEDMAN Primary Care Unavailable LAURITA FIGUEROA Attending Unavailable CHOLO FRIEDMAN Primary Care Unavailable LAURITA FIGUEROA Attending Unavailable CHOLO FRIEDMAN Primary Care Unavailable LAURITA FIGUEROA Referring Unavailable CHOLO FRIEDMAN Primary Care Unavailable LAURITA FIGUEROA Referring Unavailable CHOLO FRIEDMAN Referring Unavailable CHOLO FRIEDMAN Primary Care Unavailable CHOLO FRIEDMAN Primary Care Unavailable LAURITA FIGUEROA Referring Unavailable ANDREW GATICA Attending Unavailable CHOLO FRIEDMAN Primary Care Unavailable CHOLO FRIEDMAN Attending Unavailable CHOLO FRIEDMAN Primary Care Unavailable CHOLO FRIEDMAN Referring Unavailable CHOLO FRIEDMAN Attending Unavailable CHOLO FRIEDMAN Primary Care Unavailable CHOLO FRIEDMAN Attending Unavailable CHOLO FRIEDMAN Primary Care Unavailable Medications Current Medications Medication Drug Class(es) Dates Sig (Normalized) Sig (Original) clopidogrel 75 mg oral tablet (16 sources) P2Y12 Platelet Inhibitor Start: 03-23-2023 End: 09-19-2023 take 1 tablet by mouth once daily clopidogrel (PLAVIX) 75 mg tablet Indications: Cerebrovascular accident (CVA) due to occlusion of right middle cerebral artery (HCC) Take 1 tablet by mouth once daily. 90 tablet 1 03/23/2023 09/19/2023 Active Completed/Discontinued Medications Medication Drug Class(es) Dates Sig (Normalized) Sig (Original) amLODIPine 10 mg oral tablet (20 sources) Dihydropyridine Calcium Channel Cy Start: 03-24-2023 take 1 tablet by mouth once daily amLODIPine (NORVASC) 10 mg tablet Indications: Essential hypertension Take 1 tablet by mouth once daily. 90 tablet 1 03/24/2023 Active Problems Active Problems Problem Classification Problem Date Documented Date Episodic/Chronic Abdominal pain (2 sources) Left inguinal pain; Translations: [Left lower quadrant pain] Onset: 03-13-2023 03-13-2023 Episodic Acute and unspecified renal failure (1 source) Acute renal failure syndrome; Translations: [Acute kidney failure, unspecified] 01-27-2023 Episodic Acute cerebrovascular disease (17 sources) Cerebrovascular accident due to occlusion of right middle cerebral artery; Translations: [Cerebral infarction due to unspecified occlusion or stenosis of right middle cerebral artery] Onset: 01-16-2023 01-16-2023 Chronic Chronic kidney disease (5 sources) Chronic kidney disease stage 3; Translations: [CKD (chronic kidney disease) stage 3, GFR 30-59 ml/min] Onset: 06-30-2017 06-30-2017 Chronic Chronic kidney disease (1 source) Chronic kidney disease; Translations: [Hypertensive kidney disease with stage 3a chronic kidney disease (HCC)] Onset: 09-28-2021 Disorders of lipid metabolism (20 sources) Hyperlipidemia; Translations: [Hyperlipidemia, unspecified] Onset: 12-10-2004 Chronic Essential hypertension (20 sources) Essential hypertension; Translations: [Essential (primary) hypertension] Onset: 12-10-2004 Chronic Genitourinary symptoms and ill-defined conditions (1 source) Hematuria, unspecified; Translations: [Hematuria, unspecified type] Onset: 01-20-2023 Episodic Glaucoma (20 sources) Glaucoma; Translations: [Unspecified glaucoma] Onset: 07-20-2015 07-20-2015 Chronic Hyperplasia of prostate (20 sources) Benign prostatic hypertrophy with outflow obstruction; Translations: [Benign prostatic hyperplasia with lower urinary tract symptoms] Onset: 09-24-2007 06-11-2015 Chronic Hypertension with complications and secondary hypertension (20 sources) Hypertensive renal disease; Translations: [Hypertensive chronic kidney disease with stage 1 through stage 4 chronic kidney disease, or unspecified chronic kidney disease] Onset: 09-28-2021 Chronic Immunizations and screening for infectious disease (1 source) Needs influenza immunization; Translations: [Encounter for immunization] Episodic Other ear and sense organ disorders (20 sources) Bilateral hearing loss; Translations: [Unspecified hearing loss, bilateral] Onset: 07-20-2015 07-20-2015 Chronic Other nervous system disorders (1 source) Numbness of upper limb; Translations: [Anesthesia of skin] 12-28-2022 Episodic Residual codes; unclassified (1 source) Memory impairment; Translations: [Other amnesia] 12-28-2022 Episodic Spondylosis; intervertebral disc disorders; other back problems (1 source) Acute low back pain; Translations: [Acute left-sided low back pain without sciatica] 03-13-2023 Episodic Transient cerebral ischemia (1 source) Transient cerebral ischemia; Translations: [Transient cerebral ischemic attack, unspecified] 12-28-2022 Chronic Unclassified (1 source) Acute left-sided low back pain without sciatica; Translations: [Acute left-sided low back pain without sciatica] Onset: 03-13-2023 Past or Other Problems Problem Classification Problem Date Documented Da te Episodic/Chronic Abdominal hernia (20 sources) Umbilical hernia; Translations: [Umbilical hernia without obstruction or gangrene] Onset: 03-25-2021 03-25-2021 Episodic Conditions associated with dizziness or vertigo (4 sources) Lightheadedness; Translations: [Dizziness and giddiness] Onset: 10-07-2022 Episodic Diabetes mellitus without complication (20 sources) Impaired fasting glycemia; Translations: [Impaired fasting glucose] Onset: 11-09-2015 Episodic Other diseases of kidney and ureters (1 source) Other obstructive and reflux uropathy; Translations: [BPH with obstruction/lower urinary tract symptoms] Onset: 06-11-2015 Episodic Other skin disorders (20 sources) Actinic keratosis; Translations: [Actinic keratosis] Onset: 05-19-2011 05-19-2011 Episodic Other skin disorders (5 sources) Seborrheic keratosis; Translations: [Other seborrheic keratosis] Onset: 05-19-2011 05-19-2011 Episodic Results Test Name Value Interpretation Reference Range Facil ity Vital Signs Date Time Vital Sign Value Performing Clinician Faci lity 03-13-2023 11:31-0500 Body temperature 99.3 [degF] Laurita Older [employer] HAND.PUBLICATIONS INSPECTOR Work Phone: [facility] 03-13-2023 11:31-0500 Body weight 76.2 kg Laurita Older [employer] MAK[employer] HAND.PUBLICATIONS INSPECTOR Work Phone: [facility] 03-13-2023 11:31-0500 Diastolic blood pressure 60 mm[Hg] Laurita Older [employer] MAKER HAND.PUBLICATIONS INSPECTOR Work Phone: [facility] 03-13-2023 11:31-0500 Heart rate 91 /min Laurita Older [employer] MAKER HAND.PUBLICATIONS INSPECTOR Work Phone: [facility] 03-13-2023 11:31-0500 Respiratory rate 16 /min Laurita Older [employer] MAKER HAND.PUBLICATIONS INSPECTOR Work Phone: [facility] 03-13-2023 11:31-0500 SaO2% (BldA) [Mass fraction] 97 % Laurita Older [employer] MAKER HAND.PUBLICATIONS INSPECTOR Work Phone: [facility] 03-13-2023 11:31-0500 Systolic blood pressure 118 mm[Hg] Laurita Older [employer] MAKER HAND.PUBLICATIONS INSPECTOR Work Phone: [facility] 01-26-2023 11:02-0400 Body height 176.5 cm Laurita Older [employer] MAKER HAND.PUBLICATIONS INSPECTOR Work Phone: [facility] 01-26-2023 11:02-0400 Body weight 74.39 kg Laurita Older [employer] MAKER HAND.PUBLICATIONS INSPECTOR Work Phone: [facility] 01-26-2023 11:02-0400 Diastolic blood pressure 64 mm[Hg] Laurita Older [employer] MAKER HAND.PUBLICATIONS INSPECTOR Work Phone: [facility] 01-26-2023 11:02-0400 Heart rate 73 /min Laurita Older [employer] MAKER HAND.PUBLICATIONS INSPECTOR Work Phone: [facility] 01-26-2023 11:02-0400 SaO2% (BldA) [Mass fraction] 97 % Laurita Older [employer] MAKER HAND.PUBLICATIONS INSPECTOR Work Phone: [facility] 01-26-2023 11:02-0400 Systolic blood pressure 126 mm[Hg] Laurita Older [employer] MAKER HAND.PUBLICATIONS INSPECTOR Work Phone: [facility] 12-27-2022 11:26-0400 Body weight 78.47 kg Laurita Older [employer] MAKER HAND.PUBLICATIONS INSPECTOR Work Phone: [facility] 12-27-2022 11:26-0400 Diastolic blood pressure 68 mm[Hg] Laurita Older [employer] MAKER HAND.PUBLICATIONS INSPECTOR Work Phone: [facility] 12-27-2022 11:26-0400 Heart rate 82 /min Laurita Older [employer]ION MAKER HAND.PUBLICATIONS INSPECTOR Work Phone: [facility] 12-27-2022 11:26-0400 Respiratory rate 16 /min Laurita Older [employer]PANSION MAKER HAND.PUBLICATIONS INSPECTOR Work Phone: [facility] 12-27-2022 11:26-0400 SaO2% (BldA) [Mass fraction] 98 % Laurita Older [employer] EXP[employer]ION MAKER HAND.PUBLICATIONS INSPECTOR Work Phone: [facility] 12-27-2022 11:26-0400 Systolic blood pressure 126 mm[Hg] Laurita Older [employer] EXP[employer]ION MAKER HAND.PUBLICATIONS INSPECTOR Work Phone: [facility] 11-18-2022 11:02-0400 Diastolic blood pressure 73 mm[Hg] Laurita Older [employer] EXP[employer]ION MAKER HAND.PUBLICATIONS INSPECTOR Work Phone: [facility] 11-18-2022 11:02-0400 Heart rate 72 /min Laurita Older [employer]ION MAKER HAND.PUBLICATIONS INSPECTOR Work Phone: [facility] 11-18-2022 11:02-0400 Systolic blood pressure 139 mm[Hg] Laurita Older [employer] MAKER HAND.PUBLICATIONS INSPECTOR Work Phone: [facility] 10-07-2022 11:30-0400 Body height 176.5 cm Cholo Friedman MD Work Phone: [facility] 10-07-2022 11:30-0400 Body weight 80.29 kg Cholo Friedman MD Work Phone: [facility] 10-07-2022 11:30-0400 Diastolic blood pressure 66 mm[Hg] Cholo Friedman MD Work Phone: [facility] 10-07-2022 11:30-0400 Heart rate 74 /min Cholo Friedman MD Work Phone: [facility] 10-07-2022 11:30-0400 Respiratory rate 12 /min Cholo Friedman MD Work Phone: [facility] 10-07-2022 11:30-0400 Systolic blood pressure 128 mm[Hg] Cholo Friedman MD Work Phone: [facility] 06-30-2022 15:07-0400 Diastolic blood pressure 75 mm[Hg] Cholo Friedman MD Work Phone: [facility] 06-30-2022 15:07-0400 Heart rate 65 /min Cholo Friedman MD Work Phone: [facility] 06-30-2022 15:07-0400 Systolic blood pressure 151 mm[Hg] Cholo Friedman MD Work Phone: [facility] 06-30-2022 14:59-0400 Body weight 81.19 kg Cholo Friedman MD Work Phone: [facility] 06-30-2022 14:59-0400 Respiratory rate 12 /min Cholo Friedman MD Work Phone: [facility] 04-01-2022 10:33-0500 Body temperature 98.6 [degF] Cholo Friedman MD Work Phone: [facility] 04-01-2022 10:33-0500 Body weight 79.7 kg Cholo Friedman MD Work Phone: [facility] 04-01-2022 10:33-0500 Diastolic blood pressure 72 mm[Hg] Cholo Friedman MD Work Phone: [facility] 04-01-2022 10:33-0500 Heart rate 71 /min Cholo Friedman MD Work Phone: [facility] 04-01-2022 10:33-0500 Respiratory rate 16 /min Cholo Friedman MD Work Phone: [facility] 04-01-2022 10:33-0500 SaO2% (BldA) [Mass fraction] 98 % Cholo Friedman MD Work Phone: [facility] 04-01-2022 10:33-0500 Systolic blood pressure 142 mm[Hg] Cholo Friedman MD Work Phone: [facility] 01-07-2022 09:46-0400 Body height 175.3 cm Laurita Older [employer] MAKER HAND.PUBLICATIONS INSPECTOR Work Phone: [facility] 01-07-2022 09:46-0400 Body weight 76.97 kg Laurita Older [employer] EXP[employer]ION MAKER HAND.PUBLICATIONS INSPECTOR Work Phone: [facility] 01-07-2022 09:46-0400 Diastolic blood pressure 72 mm[Hg] Laurita Older [employer] EXP[employer]ION MAKER HAND.PUBLICATIONS INSPECTOR Work Phone: [facility] 01-07-2022 09:46-0400 Heart rate 71 /min Laurita Older [employer] EXP[employer]ION MAKER HAND.PUBLICATIONS INSPECTOR Work Phone: [facility] 01-07-2022 09:46-0400 SaO2% (BldA) [Mass fraction] 98 % Laurita Older [employer] EXP[employer]ION MAKER HAND.PUBLICATIONS INSPECTOR Work Phone: [facility] 01-07-2022 09:46-0400 Systolic blood pressure 128 mm[Hg] Laurita Older [employer] EXP[employer]ION MAKER HAND.PUBLICATIONS INSPECTOR Work Phone: [facility] 09-30-2021 08:23-0400 Diastolic blood pressure 64 mm[Hg] Cholo Friedman MD Work Phone: [facility] 09-30-2021 08:23-0400 Systolic blood pressure 122 mm[Hg] Cholo Friedman MD Work Phone: [facility] 09-30-2021 [id number]:020400 Body height 177.8 cm Cholo Friedman MD Work Phone: [facility] 09-30-2021 08:020400 Body temperature 97.5 [degF] Cholo Friedman MD Work Phone: [facility] 09-30-2021 08:020400 Body weight 86.18 kg Cholo Friedman MD Work Phone: [facility] 09-30-2021 08:020400 Heart rate 68 /min Cholo Friedman MD Work Phone: [facility] 09-30-2021 08:020400 Respiratory rate 12 /min Cholo Friedman MD Work Phone: [facility] Encounters Encounter Date Encounter Type Care Provider Facility Start: 04-14-2023 End: 04-14-2023 ambulatory CHOLO FRIEDMAN Facility:[facility] Start: 04-11-2023 End: 04-12-2023 ambulatory CHOLO FRIEDMAN Facility:[facility] Start: 04-04-2023 End: 04-05-2023 Refill Cholo Friedman MD Work Phone: [facility] Procedures Date Procedure Procedure Detail Performing Clinician Start: 03-13-2023 Urnls dip stick/tabl et rgnt auto w/o microscopy Laurita Older [employer] MAKER HAND.PUBLICATIONS INSPECTOR Work Phone: Start: 04-01-2022 INFLUENZA SEASONAL QUADRIVALENT HIGH DOSE AGE 65+ Cholo Friedman MD Work Phone: Plan of Treatment Date Care Activity Detail Author Start: 02-02-2028 Urine microalbumin profile [facility] Start: 04-04-2026 Diabetes Screening Diabetes Screenin g [facility] Start: 03-13-2026 Diabetes Screening Diabetes Screenin g [facility] Start: 01-20-2026 Diabetes Screening Diabetes Screenin g [facility] Start: 05-24-2025 DIABETES SCREEN DIABETES SCREEN [facility] Start: 05-24-2025 Diabetes Screening Diabetes Screenin g [facility] Start: 01-07-2025 DIABETES SCREEN DIABETES SCREEN [facility] Start: 09-20-2024 DIABETES SCREEN DIABETES SCREEN [facility] Start: 10-15-2023 Influenza vaccination Influenza Vacc ine (#1) [facility] Immunizations Immunization Date Immunization Notes Care Provider Fa saba 10-24-2022 zoster vaccine graham Godoy RN [facility] Work Phone: 04-01-2022 influenza, high-dose , quadrivalent vaccine (FLUZONE HIGH DOSE QUADRIVALENT) Cholo Friedman MD Work Phone: [facility] 04-01-2022 influenza virus vacc ine, unspecified formulation Laurita Older [employer] EXP[employer]ION MAKER HAND.PUBLICATIONS INSPECTOR Work Phone: [facility] 03-25-2021 influenza, high-dose , quadrivalent vaccine (FLUZONE HIGH DOSE QUADRIVALENT) Cholo Friedman MD Work Phone: [facility] Work Phone: 10-20-2020 COVID-19 vaccine, ag e 12+ yr (PFIZER-BIONTECH - PURPLE TOP) Cholo Friedman MD Work Phone: [facility] Work Phone: 09-18-2020 COVID-19 vaccine, ag e 12+ yr (PFIZER-BIONTECH - PURPLE TOP) Cholo Friedman MD Work Phone: [facility] 05-11-2017 influenza, high dose seasonal, preservative-free Cholo Friedman MD Work Phone: [facility] Work Phone: 02-05-2016 influenza, high dose seasonal, preservative-free Cholo Friedman MD Work Phone: [facility] Work Phone: 12-16-2014 influenza, high dose seasonal, preservative-free Cholo Friedman MD Work Phone: [facility] Work Phone: 12-09-2014 pneumococcal conjuga te vaccine, 13 valent Cholo Friedman MD Work Phone: [facility] 10-21-2014 zoster vaccine, live Cholo Friedman MD Work Phone: [facility] 01-08-2013 influenza virus vacc ine, unspecified formulation Cholo Friedman MD Work Phone: [facility] 04-15-2009 novel influenza-H1N1 -09, preservative-free, injectable Cholo Friedman MD Work Phone: [facility] Work Phone: 02-16-2009 tetanus and diphther ia toxoids, adsorbed, preservative free, for adult use (2 Lf of tetanus toxoid and 2 Lf of diphtheria toxoid) Cholo Friedman MD Work Phone: [facility] Work Phone: 01-06-2009 influenza virus vacc ine, unspecified formulation Cholo Friedman MD Work Phone: [facility] Work Phone: 01-31-2008 influenza virus vacc ine, unspecified formulation Cholo Friedman MD Work Phone: [facility] Work Phone: 02-13-2007 influenza virus vacc ine, unspecified formulation Cholo Friedman MD Work Phone: [facility] Work Phone: 01-12-2006 pneumococcal polysaccharide vaccine, 23 valent Cholo Friedman MD Work Phone: [facility] Work Phone: Payers Date Payer Category Payer Medicare [id number] 2021 Medicare [employer] MEDICARE A ETNA MEDICARE PPO [id number] 2021-Present [phone] [address] [place] [address] O [id number] 2021 Medicare [id number] 2017 Medicare [id number] Social History Date Type Detail Facility Start: 07-20-2015 End: 04-01-2022 Tobacco smoking status NHIS Ex-smoker [facility] Work Phone: End: 04-17-1968 History of tobacco use Current smoker [facility] End: 04-17-1968 History of tobacco use Cigarette Smoker [facility] Start: 09-30-2021 End: 03-13-2023 Alcohol intake Current non-drinker of alcohol (finding) [facility] Start: 1935 Sex Assigned At Not on file C [facility] Start: 09-20-2021 End: 09-30-2021 Exposure to SARS-CoV-2 (event) Not sure [facility] Work Phone: Start: 07-20-2015 End: 10-07-2022 Cigarettes smoked current (pack per day) - Reported 0.5 [facility] Work Phone: Start: 07-20-2015 End: 04-01-2022 Tobacco use and exposure Smokeless tobacco non-user [facility] Start: 12-28-2021 End: 01-07-2022 Exposure to SARS-CoV-2 (event) Yes [facility] Start: 10-07-2022 History SDOH Alcohol Frequency 1 [facility] Start: 10-07-2022 History SDOH Alcohol Std Drinks 0 [facility] Start: 10-07-2022 History SDOH Physica l Activity DPW 7 [facility] Start: 10-07-2022 History SDOH Physica l Activity MPS 2 [facility] Start: 10-07-2022 End: 03-13-2023 Alcohol Use Disorder Identification Test - Consumption [AUDIT-C] [facility] Work Phone: How often to you hav e a drink containing alcohol? Never [facility] Work Phone: How many standard dr inks containing alcohol do you have on a typical day? Patient does not drink [facility] Work Phone: Do you feel stress - tense, restless, nervous, or anxious, or unable to sleep at night because your mind is troubled all the time - these days [OSQ] Not at all [facility] Work Phone: Medical Equipment Procedure Code Equipment Code Equipment Origin al Text Equipment Identifier Dates [id number] Implant - [id number] Start: 08-04-2015 Clinical Notes 06-23-2016 to 04-14-2023 Telephone Encounter - Swapnil Anderson LPN - 04/04/2023 10:28 AM ESTTelephone Encounter - Lilia Lauren - 03/23/2023 10:26 AM ESTTelephone Encounter - Cynthia Salinas - 03/20/2023 3:10 PM EST Note Date & Type Note Facility 04-14-2023 Note HNO ID: [id number] Author: Cholo Friedman MD Service: ? Author Type: Physician Type: Progress Notes Filed: 04/14/2023 10:22 AM Note Text: This note was created using Videdressingriter. Subjective Consultation requested by Dr. Bakari Moctezuma for an opinion regarding holding clopidogrel for hernia surgery. My final recommendations will be communicated back to the requesting physician by way of shared Medical record or letter to requesting physician via US mail. Juan Molina is a 87 year old male who was recently diagnosed with left inguinal hernia and umbilical hernia and scheduled for April 24. He was started on clopidogrel December for cerebral vascular accident. He had no recurrent stroke symptoms. Carotid stenosis was not significant. Echo was normal. His hypertension and lipids were controlled. He had no history of congestive heart failure, bleeding tendencies, or anesthesia. Review of Systems Constitutional: Negative for chills, fatigue and fever. HENT: Positive for congestion and postnasal drip. Negative for sinus pressure, sinus pain and sore throat. Respiratory: Negative for cough, shortness of breath and wheezing. Cardiovascular: Negative for chest pain, palpitations and leg swelling. Gastrointestinal: Negative for abdominal pain, nausea and vomiting. Genitourinary: Negative for difficulty urinating and dysuria. Neurological: Negative for dizziness, speech difficulty, weakness, light-headedness, numbness and headaches. Hematological: Does not bruise/bleed easily. 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) 01/16/2023 CKD (chronic kidney disease) stage 3, GFR 30-59 ml/min (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 Hypertensive kidney disease with chronic kidney disease stage III ([facility]) 09/28/2021 Impaired fasting glucose 11/09/2015 Intracranial hemorrhage following injury ([facility]) 05/27/2014 AIMEE (obstructive sleep apnea) intolerant to CPAP 07/20/2015 Other and unspecified hyperlipidemia 12/10/2004 Sebaceous cyst back SLEEP APNEA 01/04/2005 Nasal CPAP 7cm H2O Thrombocytopenia ([facility]) Tubular adenoma of colon 06/23/2016 Umbilical hernia without obstruction and without gangrene 03/25/2021 Unspecified essential hypertension 12/10/2004 Unspecified transient cerebral ischemia 12/10/2004 PAST SURGICAL HISTORY Procedure Laterality Date CHOLECYSTECTOMY W/EXPLOR 03/30/2015 adhesions, Heinecke-Mikulicz pyloroplasty [place] modification. COLONOSCOPY FLX DX W/COLLJ SPEC WHEN PFRMD 06/20/2016 Colonoscopy ERCP REMOVE FOREIGN BODY/STENT BILIARY/PANC DUCT 05/29/2015 EXPLORATORY LAPAROTOMY CELIOTOMY W/WO BIOPSY SPX 02/02/2015 IANDD ABSCESS CMPLX/MULT back LIGJ DIVJ AND/EXCJ VARICOSE VEIN CLUSTER 1 LEG 1980 Varicose Vein Surgery PROSTATE NEEDLE BIOPSY ANY APPROACH 02/2005 Transrectal bx, prostate RPR 1ST INGUN HRNA AGE 5 YRS/> REDUCIBLE Right 08/04/2015 Social History Tobacco Use Smoking status: Former Packs/day: 0.50 Years: 20.00 Additional pack years: 0.00 Total pack years: 10.00 Types: Cigarettes Quit date: 04/17/1968 Years since quittin.0 Smokeless tobacco: Never Vaping Use Vaping Use: Never used Substance Use Topics Alcohol use: Not Currently Drug use: Never ALLERGIES No Known Allergies Current Outpatient Medications Medication Sig atorvastatin (LIPITOR) 80 mg tablet Take 1 tablet by mouth daily at bedtime. For cholesterol. amLODIPine (NORVASC) 10 mg tablet Take 1 tablet by mouth once daily. clopidogrel (PLAVIX) 75 mg tablet Take 1 tablet by mouth once daily. terazosin (HYTRIN) 5 mg capsule Take 1 capsule by mouth daily at bedtime. homeopathic drugs (PROSTATE ORAL) Take by mouth once daily. aspirin, enteric coated (ASPIR-81) 81 mg EC tablet Take 1 tablet by mouth once daily. No current facility-administered medications for this visit. Objective BP 130/68 Pulse 74 Resp 16 Wt 75.8 kg (167 lb) SpO2 96% BMI 23.96 kg/m? Physical Exam Constitutional: General: He is not in acute distress. Appearance: He is not ill-appearing. HENT: Head: Normocephalic. Nose: Congestion present. Right Turbinates: Swollen. Left Turbinates: Swollen. Right Sinus: No maxillary sinus tenderness or frontal sinus tenderness. Left Sinus: No maxillary sinus tenderness or frontal sinus tenderness. Mouth/Throat: Mouth: Mucous membranes are moist. Pharynx: Oropharynx is clear. Neck: Vascular: No carotid bruit. Cardiovascular: Rate and Rhythm: Normal rate and regular rhythm. (more content not included)... [facility] 04-04-2023 Miscellaneous Notes Patient has been identified by name and date of : Yes, Provider Elder Date 04/04/23 Time 10:38 Pharmacy phones for refill(s): Requested Prescriptions Pending Prescriptions Disp Refills atorvastatin (LIPITOR) 80 mg tablet Sig: Take 1 tablet by mouth daily at bedtime. For cholesterol. Date of last office visit in primary care: 03/13/23 Date of next office visit in primary care: 04/14/23 Please advise. Thank you. Swapnil Anderson LPN. documented in this encounter [facility] 03-23-2023 Miscellaneous Notes Opened in error documented in this encounter [facility] 03-20-2023 Miscellaneous Notes Patient has been identified by name and date of : No Patient phones for refill(s): Requested Prescriptions Pending Prescriptions Disp Refills amLODIPine (NORVASC) 10 mg tablet Sig: Take 1 tablet by mouth once daily. Date of last office visit in primary care: 03/13/2023 Date of next office visit in primary care: 04/14/2023 Last 2 Encounter Wt Readings: Date: Wt: 03/13/2023 76.2 kg (168 lb) 01/26/2023 74.4 kg (164 lb) Previous labs/tests for medication: Blood Pressure: BUN (mg/dL) Date Value 03/13/2023 17 09/08/2020 18 Sodium (mmol/L) Date Value 03/13/2023 139 09/08/2020 139 Last 1 Encounter BP Readings: Date: BP: 03/13/2023 118/60 Please advise. Thank you. Cynthia Salinas. Patient has been identified by name and date of : Yes Requested Prescriptions Pending Prescriptions Disp Refills amLODIPine (NORVASC) 10 mg tablet Sig: Take 1 tablet by mouth once daily. RX INSTRUCTIONS: Pharmacy called to request, last on 01/16/23 was MED UPDATE. Pharmacy initiated this request. No need to notify patient. Marah Ramirez documented in this encounter [facility] 03-20-2023 Miscellaneous Notes As noted below per patient, please send to [facility]. [facility] is calling and requesting this medication. It is listed as historical medication and he was not been using this Pharmacy. Please check with the patient if he is using this Pharmacy; last were sent to [facility]. Patient has been identified by name and date of : Yes, Kelly Lara RN Date 03/13/2023 Time 4:10 pm Pharmacy phones for refill(s): Requested Prescriptions Pending Prescriptions Disp Refills clopidogrel (PLAVIX) 75 mg tablet 90 tablet 1 Sig: Take 1 tablet by mouth once daily. Date of last office visit in primary care: 03/13/2023 Date of next office visit in primary care: 04/14/2023 On medication list as historical. Patient reports it is to be ordered by Dr. Friedman. Requesting [facility]. Last 2 Encounter Wt Readings: Date: Wt: 03/13/2023 76.2 kg (168 lb) 01/26/2023 74.4 kg (164 lb) Previous labs/tests for medication: Blood Pressure: BUN (mg/dL) Date Value 03/13/2023 17 09/08/2020 18 Sodium (mmol/L) Date Value 03/13/2023 139 09/08/2020 139 Last 1 Encounter BP Readings: Date: BP: 03/13/2023 118/60 Liver Function: ALT (U/L) Date Value 09/20/2021 20 09/08/2020 15 AST (U/L) Date Value 09/20/2021 18 09/08/2020 18 Please advise. Thank you. Kelly Lara RN. documented in this encounter [facility] 03-13-2023 Miscellaneous Notes Call placed to patient and notified of results and provider message. Patient verbalizes understanding. Questions answered and patient will wait to here back on next steps if any. Kelly Lara RN Please let the patient know his labs were overall within an acceptable range. The x-ray of his left hip was normal. The x-ray of his low back showed arthritis. The CT scan was negative for a kidney stone or obstruction. The prostate was enlarged and it also showed an umbilical hernia which he has a known history of. There was a small left inguinal hernia, unclear if this could be the cause of his pain. I am going to discuss further with Dr. Friedman and will let him know what the next step is after that Laurita Aguilar APRN.CNP documented in this encounter [facility] 03-13-2023 Note HNO ID: [id number] Author: Nevaeh Arrieta RT(R) Service: ? Author Type: Rig Welder Type: Progress Notes Filed: 03/13/2023 2:29 PM Note Text: Radiology Service Progress Note PATIENT NAME: Juan Molina DATE OF SERVICE: March 13, 2023 TIME: 2:29 PM PATIENT IDENTITY VERIFICATION COMPLETED USING TWO (2) IDENTIFIERS: Name and Date of confirmed by patient verbally. FALL SCREENING: Has the patient had 2 falls in the last year or 1 fall with injury or currently using an Ambulatory Assistive Device (Walker, Cane, Wheelchair, Crutches, etc.)? No PATIENT GENDER DATA: Male PATIENT RELEVANT IMPLANT DATA REVIEWED: Yes RADIOLOGY DEPARTMENT: CT; Exam(s) Completed: Abdomen/Pelvis PERIPHERAL IV DATA: Not applicable SIGNED BY: RT Skylar(R) March 13, 2023 2:29 PM [facility] 03-13-2023 Note HNO ID: [id number] Author: Betzaida Lassiter RT(R) Service: Radiology Author Type: Technologist Type: Progress Notes Filed: 03/13/2023 12:34 PM Note Text: Radiology Service Progress Note PATIENT NAME: Juan Molina DATE OF SERVICE: March 13, 2023 TIME: 12:16 PM PATIENT IDENTITY VERIFICATION COMPLETED USING TWO (2) IDENTIFIERS: Name and Date of confirmed by patient verbally. FALL SCREENING: Has the patient had 2 falls in the last year or 1 fall with injury or currently using an Ambulatory Assistive Device (Walker, Cane, Wheelchair, Crutches, etc.)? No PATIENT GENDER DATA: Male PATIENT RELEVANT IMPLANT DATA REVIEWED: Not Applicable RADIOLOGY DEPARTMENT: General X-ray: Exam(s) Completed: Spine X-Ray(s): Lumbar AP / LAT / L5-S1 Pelvis X-Ray: Pelvis with Hip Left PERIPHERAL IV DATA: Not applicable SIGNED BY: RT Cesar(R) March 13, 2023 12:16 PM [facility] 03-13-2023 Note HNO ID: [id number] Author: Laurita Aguilar APRN.CNP Service: ? Author Type: Nurse Practitioner Type: Progress Notes Filed: 03/13/2023 12:33 PM Note Text: CC: Patient presents with: left flank pain - x 4 days: C/o possible kidney infection HPI Juan Molina is a 87 year old male who presents today for above. Back pain x 3-4 days Located in left low back with radiation to the left hip and groin . Described as constant, sharp and stabbing Cause: The back pain is not related to a known injury. He does admit to increase in activity and lifting heavier than usual prior to onset Pain is aggravated by lifting the left leg, bending and twisting Pain is alleviated by lifting leg with his arms to reposition or get out of the bed/chair Associated symptoms include urinary hesitancy. Denies: numbness, tingling, morning stiffness, leg pain, leg weakness, loss of bowel or bladder control, foot drop, and gait disturbance Treatments tried: NSAIDs with minimal relief. Reports history of kidney stones five years ago. Was recently admitted for ALEK in January. Denies history of hip or low back problems Review of Systems Constitutional: Negative for activity change, appetite change, chills, diaphoresis, fatigue, fever and unexpected weight change. Gastrointestinal: Negative for abdominal pain, anal bleeding, blood in stool, constipation, diarrhea, nausea, rectal pain and vomiting. Genitourinary: Negative for decreased urine volume, dysuria, frequency, hematuria, penile pain, penile swelling, scrotal swelling, testicular pain and urgency. 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 Hypertensive kidney disease with chronic kidney disease stage III (HCC) 09/28/2021 Intracranial hemorrhage following injury (HCC) 05/27/2014 AIMEE (obstructive sleep apnea) intolerant to CPAP 07/20/2015 Other and unspecified hyperlipidemia 12/10/2004 Sebaceous cyst back SLEEP APNEA 01/04/2005 Nasal CPAP 7cm H2O Thrombocytopenia (HCC) Tubular adenoma of colon 06/23/2016 Umbilical hernia without obstruction and without gangrene 03/25/2021 Unspecified essential hypertension 12/10/2004 Unspecified transient cerebral ischemia 12/10/2004 PAST SURGICAL HISTORY Procedure Laterality Date CHOLECYSTECTOMY W/EXPLOR 03/30/2015 adhesions, Heinecke-Mikulicz pyloroplasty [place] modification. 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 MEDICATIONS Ibuprofen 200 mg cap Take 200 mg by mouth every 6 hours as needed for pain. clopidogrel (PLAVIX) 75 mg tablet Take 75 mg by mouth once daily. amLODIPine (NORVASC) 10 mg tablet Take 1 tablet by mouth once daily. atorvastatin (LIPITOR) 80 mg tablet Take 1 tablet by mouth daily at bedtime. For cholesterol. terazosin (HYTRIN) 5 mg capsule Take 1 capsule by mouth daily at bedtime. homeopathic drugs (PROSTATE ORAL) Take by mouth. aspirin, enteric coated (ASPIR-81) 81 mg EC tablet Take 1 tablet by mouth once daily. FAMILY HISTORY Problem Relation Age of Onset Hypertension Mother Diabetes Mother Cancer Mother uterine and cervical mets to lung, other (macular degeneration) Mother other (unknown left home 194) Father Heart Brother CABG, Diabetes Brother obese Social History Tobacco Use Smoking status: Former Packs/day: 0.50 Years: 20.00 Additional pack years: 0.00 Total pack years: 10.00 Types: Cigarettes Quit date: 04/17/1968 Years since quittin.9 Smokeless tobacco: Never Vaping Use Vaping Use: Never used Substance Use Topics Alcohol use: No Drug use: No BP 118/60 Pulse 91 Temp 37.4 ?C (99.3 ?F) (Temporal) Resp 16 Wt 76.2 kg (168 lb) SpO2 97% BMI 24.45 kg/m? Physical Exam Vitals reviewed. Constitutional: General: He is not in acute distress. Appearance: Normal appearance. He is not ill-appearing. Cardiovascular: Rate and Rhythm: Normal rate and regular rhythm. Heart sounds: Normal heart sounds. Pulmonary: Effort: Pulmonary effort is normal. Breath sounds: Normal breath sounds. (more content not included)... [facility] 03-13-2023 Instructions Laurita Aguilar APRN.CNP - 03/13/2023 11:55 AM EST Go to ER or call 911 if you develop severe abdominal pain, vomiting that won't stop, high fever, rigid/hard abdomen. documented in this encounter [facility] 03-13-2023 History of Present illness Narrative CC: Patient presents with: left flank pain - x 4 days: C/o possible kidney infection HPI Juan Molina is a 87 year old male who presents today for above. Back pain x 3-4 days Located in left low back with radiation to the left hip and groin . Described as constant, sharp and stabbing Cause: The back pain is not related to a known injury. He does admit to increase in activity and lifting heavier than usual prior to onset Pain is aggravated by lifting the left leg, bending and twisting Pain is alleviated by lifting leg with his arms to reposition or get out of the bed/chair Associated symptoms include urinary hesitancy. Denies: numbness, tingling, morning stiffness, leg pain, leg weakness, loss of bowel or bladder control, foot drop, and gait disturbance Treatments tried: NSAIDs with minimal relief. Reports history of kidney stones five years ago. Was recently admitted for ALEK in January. Denies history of hip or low back problems Review of Systems Constitutional: Negative for activity change, appetite change, chills, diaphoresis, fatigue, fever and unexpected weight change. Gastrointestinal: Negative for abdominal pain, anal bleeding, blood in stool, constipation, diarrhea, nausea, rectal pain and vomiting. Genitourinary: Negative for decreased urine volume, dysuria, frequency, hematuria, penile pain, penile swelling, scrotal swelling, testicular pain and urgency. 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) 01/16/2023 CKD (chronic kidney disease) stage 3, GFR 30-59 ml/min (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 Hypertensive kidney disease with chronic kidney disease stage III ([facility]) 09/28/2021 Intracranial hemorrhage following injury ([facility]) 05/27/2014 AIMEE (obstructive sleep apnea) intolerant to CPAP 07/20/2015 Other and unspecified hyperlipidemia 12/10/2004 Sebaceous cyst back SLEEP APNEA 01/04/2005 Nasal CPAP 7cm H2O Thrombocytopenia ([facility]) Tubular adenoma of colon 06/23/2016 Umbilical hernia without obstruction and without gangrene 03/25/2021 Unspecified essential hypertension 12/10/2004 Unspecified transient cerebral ischemia 12/10/2004 PAST SURGICAL HISTORY Procedure Laterality Date CHOLECYSTECTOMY W/EXPLOR 03/30/2015 adhesions, Heinecke-Mikulicz pyloroplasty [place] modification. 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 MEDICATIONS Ibuprofen 200 mg cap Take 200 mg by mouth every 6 hours as needed for pain. clopidogrel (PLAVIX) 75 mg tablet Take 75 mg by mouth once daily. amLODIPine (NORVASC) 10 mg tablet Take 1 tablet by mouth once daily. atorvastatin (LIPITOR) 80 mg tablet Take 1 tablet by mouth daily at bedtime. For cholesterol. terazosin (HYTRIN) 5 mg capsule Take 1 capsule by mouth daily at bedtime. homeopathic drugs (PROSTATE ORAL) Take by mouth. aspirin, enteric coated (ASPIR-81) 81 mg EC tablet Take 1 tablet by mouth once daily. FAMILY HISTORY Problem Relation Age of Onset Hypertension Mother Diabetes Mother Cancer Mother uterine and cervical mets to lung, other (macular degeneration) Mother other (unknown left home 194) Father Heart Brother CABG, Diabetes Brother obese Social History Tobacco Use Smoking status: Former Packs/day: 0.50 Years: 20.00 Additional pack years: 0.00 Total pack years: 10.00 Types: Cigarettes Quit date: 04/17/1968 Years since quittin.9 Smokeless tobacco: Never Vaping Use Vaping Use: Never used Substance Use Topics Alcohol use: No Drug use: No BP 118/60 Pulse 91 Temp 37.4 C (99.3 F) (Temporal) Resp 16 Wt 76.2 kg (168 lb) SpO2 97% BMI 24.45 kg/m Physical Exam Vitals reviewed. Constitutional: General: He is not in acute distress. Appearance: Normal appearance. He is not ill-appearing. Cardiovascular: Rate and Rhythm: Normal rate and regular rhythm. Heart sounds: Normal heart sounds. Pulmonary: Effort: Pulmonary effort is normal. Breath sounds: Normal breath sounds. Abdominal: General: Bowel sounds are normal. There is no distension. Palpations: Abdomen is soft. Tenderness: There is no abdominal tenderness. There is no right CVA tenderness or left CVA tenderness. Hernia: No hernia is present. Musculoskeletal: Lumbar back: No deformity, spasms or tenderness. Normal range of motion (painful with rotation and flexion). Negative right straight leg raise test and negative left straight leg raise test. Right hip: Normal. Left hip: No deformity, tenderness or bony tenderness. Decreased range of motion (painful with internal rotation, abduction and flexion). Skin: General: Skin is warm and dry. Neurological: Mental Status: He is alert. DATA REVIEWED: Most recent labs ASSESSMENT/PLAN: 1. Left groin pain - ICD9: 789.04, ICD10: R10.32 (primary diagnosis) Differentials include kidney stone, UTI, groin strain, referred pain from low back or hip, occult hernia - UA DIP, URINE (POC) positive for protein and trace ketones Further evaluation with: - CT FLANK WO IVCON - XR HIP GENERAL 3V PELV/AP/LAT LEFT - BASIC METABOLIC PNL - CBC - URINE CULTURE Follow-up pending results 2. Acute left-sided low back pain without sciatica - ICD9: 724.2, ICD10: M54.50 As above - CT FLANK WO IVCON - XR LUMBAR GENERAL 3V AP/LAT/L5-S1 Prescription instructions reviewed with patient as applicable. Potential red flag symptoms discussed with the patient. Reviewed appropriate action plan to take if red flag symptoms occur. Patient agreeable to treatment plan. Laurita Aguilar APRN.PUBLICATIONS INSPECTOR documented in this encounter [facility] 02-03-2023 Miscellaneous Notes Noted. Liliana GAVIN from [facility] calls and states that she saw patient yesterday. Patient was discharged from services. Patient has met all goals. Lalita Weston RN documented in this encounter [facility] 01-31-2023 Miscellaneous Notes Noted. Karlene from [facility] Home Health OT calling patient had low blood pressure reading at 1215 pm 103/49 pulse 69, he is asymptomatic, he is drinking fluids, had taken his medications about 11 am today. She does not need call back. documented in this encounter [facility] 01-31-2023 Miscellaneous Notes Notified Angelica. Last office note 01/26 stating residual weakness left upper extremity with diagnosis code of I69.30 Laurita Aguilar APRN.PUBLICATIONS INSPECTOR Angelica- [facility]- reports they are having difficulty with diagnoses coding in their charting. Asking for verbal order for any late effect of CVA, such as left sided weakness or speech difficulty. Please phone Angelica with verbal: [phone] Faxed last 2 ov notes to [facility], per Angelica request. documented in this encounter [facility] 01-27-2023 Miscellaneous Notes Called [facility] and notified of Dr. Friedman's response. Discontinue hold parameters for AMLODIPINE 10 mg. Take daily. Kamila, nurse @ [facility] calling to ask if PCP can either discontinue parameters on Amlodipine which are :Hold if systolic BP less than 120 or discontinue medication? Patient lives alone and after his stroke he is having a difficult time taking his blood pressure and remembering to take pill out of pill pack if BP less than 120. She states his recent readings have been running mostly higher than 120/systolic. She gives the following readings from visits: 01/24/23 101/56 01/20/23 142/66 01/17/23 125/57 This medication was started by Dr. Dumas during patient's hospitalization. Patient had OV today with Laurita with BP126/64. Please call Cori with any change in order. # [phone]. Juanis Hunter RN documented in this encounter [facility] 01-26-2023 Note HNO ID: [id number] Author: Laurita Aguilar, TAWNYA.PUBLICATIONS INSPECTOR Service: ? Author Type: Nurse Practitioner Type: Progress Notes Filed: 01/31/2023 7:53 AM Note Text: CC: Patient presents with: Follow Up HPI Juan Molina is a 87 year old male who presents today for above. He was seen on 01/16 for ED visit for dehydration. ALEK was noted on labs in the ED and these were rechecked on 01/20, renal function back to baseline CKD stage 3a. He had reported one episode of gross hematuria at visit on 01/16. Urinalysis checked and was negative for RBC's. Today patient reports he has been feeling well. Maintaining adequate hydration. Denies lightheadedness, feeling faint, passing out, weakness, confusion, SOB, palpitations. No further episodes of gross hematuria. He had a TIA followed by a stroke in December. 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 Otherwise no residual symptoms. 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 Hypertensive kidney disease with chronic kidney disease stage III (HCC) 09/28/2021 Intracranial hemorrhage following injury (HCC) 05/27/2014 AIMEE (obstructive sleep apnea) intolerant to CPAP 07/20/2015 Other and unspecified hyperlipidemia 12/10/2004 Sebaceous cyst back SLEEP APNEA 01/04/2005 Nasal CPAP 7cm H2O Thrombocytopenia (HCC) Tubular adenoma of colon 06/23/2016 Umbilical hernia without obstruction and without gangrene 03/25/2021 Unspecified essential hypertension 12/10/2004 Unspecified transient cerebral ischemia 12/10/2004 PAST SURGICAL HISTORY Procedure Laterality Date CHOLECYSTECTOMY W/EXPLOR 03/30/2015 adhesions, Heinecke-Mikulicz pyloroplasty [place] modification. 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 MEDICATIONS amLODIPine (NORVASC) 10 mg tablet Take 1 tablet by mouth once daily. aspirin, enteric coated (ASPIR-81) 81 mg EC tablet Take 1 tablet by mouth once daily. atorvastatin (LIPITOR) 80 mg tablet Take 1 tablet by mouth daily at bedtime. For cholesterol. clopidogrel (PLAVIX) 75 mg tablet Take 75 mg by mouth once daily. homeopathic drugs (PROSTATE ORAL) Take by mouth. terazosin (HYTRIN) 5 mg capsule Take 1 capsule by mouth daily at bedtime. FAMILY HISTORY Problem Relation Age of Onset Hypertension Mother Diabetes Mother Cancer Mother uterine and cervical mets to lung, other (macular degeneration) Mother other (unknown left home 1944) Father Heart Brother CABG, Diabetes Brother obese Social History Tobacco Use Smoking status: Former Packs/day: 0.50 Years: 20.00 Additional pack years: 0.00 Total pack years: 10.00 Types: Cigarettes Quit date: 04/17/1968 Years since quittin.8 Smokeless tobacco: Never Vaping Use Vaping Use: Never used Substance Use Topics Alcohol use: No Drug use: No BP 126/64 Pulse 73 Ht 176.5 cm (5' 9.5 ) Wt 74.4 kg (164 lb) SpO2 97% BMI 23.87 kg/m? Physical Exam Vitals reviewed. Constitutional: Appearance: Normal appearance. HENT: Mouth/Throat: Mouth: Mucous membranes are moist. Eyes: Conjunctiva/sclera: Conjunctivae normal. Cardiovascular: Rate and Rhythm: Normal rate and regular rhythm. Pulmonary: Effort: Pulmonary effort is normal. Breath sounds: Normal breath sounds. No wheezing, rhonchi or rales. Skin: General: Skin is warm and dry. Neurological: Mental Status: He is alert. Motor: Weakness present. No tremor or atrophy. Gait: Gait is intact. Deep Tendon Reflexes: Reflexes are normal and symmetric. Comments: Medical Anthropology Director strength- 4/5 LUE and 5/5 RUE otherwise motor function intact Psychiatric: Mood and Affect: Mood normal. Behavior: Behavior normal. DATA REVIEWED: Most recent labs ASSESSMENT/PLAN: 1. Acute kidney injury superimposed on CKD (HCC) - ICD9: 584.9, 585.9, ICD10: N17.9, N18.9 (primary diagnosis) - eGFR: 55 at baseline; ALEK resolved - Counseled on avoiding NSAIDs, adequate hydration - Counseled on low sodium diet 2. BP (more content not included)... [facility] 01-26-2023 History of Present illness Narrative CC: Patient presents with: Follow Up HPI Juan Molina is a 87 year old male who presents today for above. He was seen on 01/16 for ED visit for dehydration. ALEK was noted on labs in the ED and these were rechecked on 01/20, renal function back to baseline CKD stage 3a. He had reported one episode of gross hematuria at visit on 01/16. Urinalysis checked and was negative for RBC's. Today patient reports he has been feeling well. Maintaining adequate hydration. Denies lightheadedness, feeling faint, passing out, weakness, confusion, SOB, palpitations. No further episodes of gross hematuria. 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 Hypertensive kidney disease with chronic kidney disease stage III (HCC) 09/28/2021 Intracranial hemorrhage following injury (HCC) 05/27/2014 AIMEE (obstructive sleep apnea) intolerant to CPAP 07/20/2015 Other and unspecified hyperlipidemia 12/10/2004 Sebaceous cyst back SLEEP APNEA 01/04/2005 Nasal CPAP 7cm H2O Thrombocytopenia (HCC) Tubular adenoma of colon 06/23/2016 Umbilical hernia without obstruction and without gangrene 03/25/2021 Unspecified essential hypertension 12/10/2004 Unspecified transient cerebral ischemia 12/10/2004 PAST SURGICAL HISTORY Procedure Laterality Date CHOLECYSTECTOMY W/EXPLOR 03/30/2015 adhesions, Heinecke-Mikulicz pyloroplasty [place] modification. 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 MEDICATIONS amLODIPine (NORVASC) 10 mg tablet Take 1 tablet by mouth once daily. aspirin, enteric coated (ASPIR-81) 81 mg EC tablet Take 1 tablet by mouth once daily. atorvastatin (LIPITOR) 80 mg tablet Take 1 tablet by mouth daily at bedtime. For cholesterol. clopidogrel (PLAVIX) 75 mg tablet Take 75 mg by mouth once daily. homeopathic drugs (PROSTATE ORAL) Take by mouth. terazosin (HYTRIN) 5 mg capsule Take 1 capsule by mouth daily at bedtime. FAMILY HISTORY Problem Relation Age of Onset Hypertension Mother Diabetes Mother Cancer Mother uterine and cervical mets to lung, other (macular degeneration) Mother other (unknown left home 194) Father Heart Brother CABG, Diabetes Brother obese Social History Tobacco Use Smoking status: Former Packs/day: 0.50 Years: 20.00 Additional pack years: 0.00 Total pack years: 10.00 Types: Cigarettes Quit date: 04/17/1968 Years since quittin.8 Smokeless tobacco: Never Vaping Use Vaping Use: Never used Substance Use Topics Alcohol use: No Drug use: No BP 126/64 Pulse 73 Ht 176.5 cm (5' 9.5 ) Wt 74.4 kg (164 lb) SpO2 97% BMI 23.87 kg/m Physical Exam DATA REVIEWED: Most recent labs ASSESSMENT/PLAN: 1. Acute kidney injury superimposed on CKD (HCC) - ICD9: 584.9, 585.9, ICD10: N17.9, N18.9 (primary diagnosis) - eGFR: 55 at baseline; ALEK resolved - Counseled on avoiding NSAIDs, adequate hydration - Counseled on low sodium diet 2. BPH with obstruction/lower urinary tract symptoms - ICD9: 600.01, 599.69, ICD10: N40.1, N13.8 No further episodes of gross hematuria, urinalysis normal 3. Essential hypertension - ICD9: 401.9, ICD10: I10 - Controlled - Continue current medications Prescription instructions reviewed with patient as applicable. Potential red flag symptoms discussed with the patient. Reviewed appropriate action plan to take if red flag symptoms occur. Patient agreeable to treatment plan. Laurita Aguilar APRN.CNP documented in this encounter [facility] 01-25-2023 Miscellaneous Notes Called and left a detailed voicemail notifying Tera [facility] MACRINA GARCIA of providers message. Hospital phone number was left in case she had any questions. Brionna Galicia, MACRINA Event monitor was thru [facility]. Patient had MORRO by Dr. Abel during his admission. [facility] or whoever is contracted should read what data is available. [facility] nurse Tera calling with a nurse frequency update: 1X Wk X 3wks. Tera states a holter monitor was placed on pt by the hospitalist when pt was in the hospital. Was to wear X 30 days however pt told tera the monitor fell off & he was not able to put it back on. Tera called [facility] but pt is not a pt there. Tera is asking who should be contacted? Please advise. Maria Fernanda Hurley LPN documented in this encounter [facility] 01-24-2023 Miscellaneous Notes Kamila RN nurse at [facility] states they are having problems with coding & is requesting info from last office visit. LOAN notes faxed to her at [phone]. Mraia Fernanda Hurley LPN documented in this encounter [facility] 01-24-2023 Miscellaneous Notes Left message on Mai/daughter's phone for Patient to call & speak to nurse. Patient's vm has not been set up. Ahamed w/[facility] notified of below recommendation. Per Ahamed, Juan no longer qualifies, he is past the window of qualying. Patient was notified. Nichole Pike LPN Please inform Juan that while we encourage participation in clinical trials, the benefits and risks are not established, and in this case depending on what regimen he receives, he may be assigned to his current regimen or others using stronger blood thinners. There may be higher risk of bleeding. Participation may also involve travel and tests, so he needs to take all these into account. Please have him respond directly to the [facility] trial coordinator. Just let us know if he decides to participate. Ahamed notified. Please let the patient know Dr. Friedman will be out until next Monday the . I don't feel comfortable advising him on this matter, I will forward this to Dr. Friedman to address when he returns Laurita Aguilar APRN.DEEP Bebeto with [facility] called to let you know pt is eligible for a [place] clinical trial for stroke with severe stenosis pt. Pt had a stroke 12-28-22. Pt had a TIA on 01-14-23. Pt wanted to have information given to his pcp and see what his recommendations are on him being in this clinical trial. [facility] reports there is a window where pt has be be enrolled in the trial before 30 days after pt's stroke. They have till 12-28-22 to get pt enrolled. Pt will be put on 1 of the combinations listed below. 1)aspirin 81 mg and Plavix 2)aspirin 81 mg and Brilinta 3)aspirin 81 mg and Xarelto The doctor in charge of this trial is the director of Neuro ICU at [facility] Dr. Pringle. Patients are monitored for hypertension and DM also. Please review and advise pt on you recommendations. Pt will need to call [facility] back [phone]. Heather Monroy LPN documented in this encounter [facility] 01-18-2023 Miscellaneous Notes Karlene- E[facility]- [facility]- reporting POC. Will see patient 2 x's week for 2 weeks, then 1 x week for 1 week. Reports this was a delay of care- due to waiting on insurance approval. documented in this encounter [facility] 01-17-2023 Miscellaneous Notes Okay. Noted. Jorge Luis with [facility] PT calls with pt POC. PT will see pt twice a week x 2 weeks for functional capacity training. Aviva Verma LPN documented in this encounter [facility] 01-16-2023 Note HNO ID: [id number] Author: Cholo Friedman MD Service: ? Author Type: Physician Type: Progress Notes Filed: 01/16/2023 4:10 PM Note Text: This note was created using Just Dial. Subjective Juan Molina is a 87 year old male. He had TIA early in December, followed by CVA 12/30-01/05. His amlodipine and atorvastatin where increased, and he was now on Plavix. He was on a 30 day event recorder. He was out mowing this weekend with recurrence of transient stroke symptoms in the setting of dehydration. He was reevaluated and treated in the ED with IVF and released. Review of Systems Constitutional: Negative for chills, fatigue and fever. HENT: Negative. Eyes: Negative for visual disturbance. Respiratory: Negative for shortness of breath. Cardiovascular: Negative for chest pain, palpitations and leg swelling. Gastrointestinal: Negative. Genitourinary: Positive for hematuria. Negative for difficulty urinating and dysuria. ACTIVE PROBLEM LIST Essential Hypertension Hyperlipidemia Bph With Obstruction/Lower Urinary Tract Symptoms Actinic Keratoses: Premalignant AK's Bilateral Hearing Loss Glaucoma Impaired Fasting Glucose Umbilical Hernia Without Obstruction and Without Gangrene Hypertensive Kidney Disease With Chronic Kidney Disease Stage Iii (Hcc) Social History Tobacco Use Smoking status: Former Packs/day: 0.50 Years: 20.00 Additional pack years: 0.00 Total pack years: 10.00 Types: Cigarettes Quit date: 04/17/1968 Years since quittin.7 Smokeless tobacco: Never Vaping Use Vaping Use: Never used Substance Use Topics Alcohol use: No Drug use: No Current Outpatient Medications Medication Sig clopidogrel (PLAVIX) 75 mg tablet Take 75 mg by mouth once daily. terazosin (HYTRIN) 5 mg capsule Take 1 capsule by mouth daily at bedtime. homeopathic drugs (PROSTATE ORAL) Take by mouth. aspirin, enteric coated (ASPIR-81) 81 mg EC tablet Take 1 tablet by mouth once daily. amLODIPine (NORVASC) 10 mg tablet Take 1 tablet by mouth once daily. atorvastatin (LIPITOR) 80 mg tablet Take 1 tablet by mouth daily at bedtime. For cholesterol. No current facility-administered medications for this visit. Objective BP (P) 112/64 (BP Site: Left Arm, BP Position: Sitting, BP Cuff Size: Large Adult) Pulse (P) 86 Wt (P) 75.3 kg (166 lb) SpO2 (P) 97% BMI (P) 24.16 kg/m? Physical Exam Constitutional: General: He is not in acute distress. HENT: Head: Normocephalic. Eyes: Extraocular Movements: Extraocular movements intact. Conjunctiva/sclera: Conjunctivae normal. Neck: Vascular: No carotid bruit. Cardiovascular: Rate and Rhythm: Normal rate and regular rhythm. Heart sounds: No murmur heard. No gallop. Pulmonary: Breath sounds: Normal breath sounds. Musculoskeletal: Right lower leg: No edema. Left lower leg: No edema. Neurological: General: No focal deficit present. Mental Status: He is alert and oriented to person, place, and time. Cranial Nerves: No cranial nerve deficit. Sensory: No sensory deficit. Motor: No weakness. Gait: Gait normal. Assessment and Plan 1. Cerebrovascular accident (CVA) due to occlusion of right middle cerebral artery (HCC) - ICD9: 434.91, ICD10: I63.511 (primary diagnosis) Continue current medications. Avoid dehydration. 2. Essential hypertension - ICD9: 401.9, ICD10: I10 - Controlled - AMLODIPINE 10 MG TABLET 3. Hyperlipidemia, unspecified hyperlipidemia type - ICD9: 272.4, ICD10: E78.5 - Control undetermined, due for labs - Continue current medications - ATORVASTATIN 80 MG TABLET 4. Hypertensive kidney disease with stage 3a chronic kidney disease (HCC) - ICD9: 403.90, 585.3, ICD10: I12.9, N18.31 Recheck ALEK noted in the ER. - CBC - BASIC METABOLIC PNL 5. Hematuria, unspecified type - ICD9: 599.70, ICD10: R31.9 Gross hematuria, one episode 1+ weeks ago, no recurrence. - URINALYSIS, WITH MICROSCOPIC Cholo Friedman MD [facility] 01-06-2023 Miscellaneous Notes Call to Fannie and notified her of Provider message below, verbalized understanding. Kathleen Arriola Ma Saurav Aguilar APRN.CNP Fannie at [facility] calling and patient will be discharging to home from [facility] on 01/05. Dx: TIA. Pt has orders for Nursing, PT and OT. Asking if provider willing to follow? Please call Fannie at [phone]. Thank you. documented in this encounter [facility] 12-27-2022 Miscellaneous Notes Pt called and is notified of providers message and instructions. Pt voices understanding. Brionna Galicia RN Please let the patient know I reviewed his symptoms that we discussed at today's office visit with Dr. Mayer. She agrees there is no further work-up indicated at this time but he should call the office right away if symptoms reoccur. If he is having any stroke like symptoms he needs to go to the ER or call Naeem Aguilar APRN.CNP documented in this encounter [facility] 12-27-2022 Note HNO ID: [id number] Author: Laurita Aguilar APRN.CNP Service: ? Author Type: Nurse Practitioner Type: Progress Notes Filed: 12/28/2022 1:31 PM Note Text: CC: Patient presents with: Hospital F/U [facility] Juan Molina is a 87 year old male who presents today for above. Patient was admitted to [facility] 12/21 to 12/22 for stroke symptoms of intermittent blurry vision and transient LUE paresthesias. CT brain normal. CTA showed high grade stenosis. Carotid ultrasound showed mild less than 50% stenoses. Labs unremarkable. Echocardiogram normal. Symptoms attributed to probabl TIA. Discharged home with new prescriptions for Lipitor and ASA. Patient denies any further episodes of LUE numbness however this morning he had papers in his left hand that he continued to drop multiple times. He also reports forgetfulness today that is out of character for him. He left water running and forgot to take the lid off a pill bottle before trying to dump one in his hand. left lid on pill bottle and was trying to dump the pills from it, dropped papers from his left hand nine times. Denies dizziness, lightheadedness, feeling faint, syncope, confusion, disorientation, numbness/tingling, weakness, tremor, difficulty with coordination/balance, slurred speech, facial drooping Review of Systems Constitutional: Negative for diaphoresis, fatigue and fever. Respiratory: Negative for chest tightness and shortness of breath. Cardiovascular: Negative for chest pain, palpitations and leg swelling. 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 Hypertensive kidney disease with chronic kidney disease stage III ([facility]) 09/28/2021 Intracranial hemorrhage following injury ([facility]) 05/27/2014 AIMEE (obstructive sleep apnea) intolerant to CPAP 07/20/2015 Other and unspecified hyperlipidemia 12/10/2004 Sebaceous cyst back SLEEP APNEA 01/04/2005 Nasal CPAP 7cm H2O Thrombocytopenia ([facility]) Tubular adenoma of colon 06/23/2016 Umbilical hernia without obstruction and without gangrene 03/25/2021 Unspecified essential hypertension 12/10/2004 Unspecified transient cerebral ischemia 12/10/2004 PAST SURGICAL HISTORY Procedure Laterality Date CHOLECYSTECTOMY W/EXPLOR 03/30/2015 adhesions, Heinecke-Mikulicz pyloroplasty [place] modification. 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 MEDICATIONS atorvastatin (LIPITOR) 40 mg tablet Take 40 mg by mouth daily at bedtime. amLODIPine (NORVASC) 5 mg tablet Take 1 tablet by mouth once daily. aspirin, enteric coated (ASPIR-81) 81 mg EC tablet Take 1 tablet by mouth once daily. terazosin (HYTRIN) 5 mg capsule Take 1 capsule by mouth daily at bedtime. terazosin (HYTRIN) 5 mg capsule Take 1 capsule by mouth daily at bedtime. homeopathic drugs (PROSTATE ORAL) Take by mouth. FAMILY HISTORY Problem Relation Age of Onset Hypertension Mother Diabetes Mother Cancer Mother uterine and cervical mets to lung, other (macular degeneration) Mother other (unknown left home 1944) Father Heart Brother CABG, Diabetes Brother obese Social History Tobacco Use Smoking status: Former Packs/day: 0.50 Years: 20.00 Additional pack years: 0.00 Total pack years: 10.00 Types: Cigarettes Quit date: 04/17/1968 Years since quittin.7 Smokeless tobacco: Never Vaping Use Vaping Use: Never used Substance Use Topics Alcohol use: No Drug use: No BP 126/68 Pulse 82 Resp 16 Wt 78.5 kg (173 lb) SpO2 98% BMI 25.18 kg/m? Physical Exam Vitals reviewed. Constitutional: General: He is awake. He is not in acute distress. Appearance: He is not ill-appearing. Eyes: Extraocular Movements: Extraocular movements intact. Pupils: Pupils are equal, round, and reactive to light. Cardiovascular: Rate and Rhythm: Normal rate and regular rhythm. Pulses: Normal pulses. Heart sounds: Normal heart sounds. No murmur heard. Pulmonary: Effort: Pulmonary effort is normal. Breath sounds: Normal breath sounds. No wheezing, rhonchi or rales. Neurological: General: No focal deficit present. Mental Status: He is alert. Cranial Nerves: Cranial nerves 2-12 ar (more content not included)... [facility] 12-27-2022 Instructions Laurita Aguilar APRN.CNP - 12/27/2022 11:42 AM EDT Check your papers about the Shingrix vaccine second dose, you should have it 2-6 months after your first one (your first one was 10/24/22) Notify the office right away if you develop any further stroke like symptoms including weakness and/or numbness or go to the ER/call 911 documented in this encounter [facility] 12-27-2022 History of Present illness Narrative CC: Patient presents with: [facility] F/U [facility] Juan Molina is a 87 year old male who presents today for above. Patient was admitted to [facility] 12/21 to 12/22 for stroke symptoms of intermittent blurry vision and transient LUE paresthesias. CT brain normal. CTA showed high grade stenosis. Carotid ultrasound showed mild less than 50% stenoses. Labs unremarkable. Echocardiogram normal. Symptoms attributed to probabl TIA. Discharged home with new prescriptions for Lipitor and ASA. Patient denies any further episodes of LUE numbness however this morning he had papers in his left hand that he continued to drop multiple times. He also reports forgetfulness today that is out of character for him. He left water running and forgot to take the lid off a pill bottle before trying to dump one in his hand. left lid on pill bottle and was trying to dump the pills from it, dropped papers from his left hand nine times. Denies dizziness, lightheadedness, feeling faint, syncope, confusion, disorientation, numbness/tingling, weakness, tremor, difficulty with coordination/balance, slurred speech, facial drooping Review of Systems Constitutional: Negative for diaphoresis, fatigue and fever. Respiratory: Negative for chest tightness and shortness of breath. Cardiovascular: Negative for chest pain, palpitations and leg swelling. 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 Hypertensive kidney disease with chronic kidney disease stage III ([facility]) 09/28/2021 Intracranial hemorrhage following injury ([facility]) 05/27/2014 AIMEE (obstructive sleep apnea) intolerant to CPAP 07/20/2015 Other and unspecified hyperlipidemia 12/10/2004 Sebaceous cyst back SLEEP APNEA 01/04/2005 Nasal CPAP 7cm H2O Thrombocytopenia ([facility]) Tubular adenoma of colon 06/23/2016 Umbilical hernia without obstruction and without gangrene 03/25/2021 Unspecified essential hypertension 12/10/2004 Unspecified transient cerebral ischemia 12/10/2004 PAST SURGICAL HISTORY Procedure Laterality Date CHOLECYSTECTOMY W/EXPLOR 03/30/2015 adhesions, Heinecke-Mikulicz pyloroplasty [place] modification. 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 MEDICATIONS atorvastatin (LIPITOR) 40 mg tablet Take 40 mg by mouth daily at bedtime. amLODIPine (NORVASC) 5 mg tablet Take 1 tablet by mouth once daily. aspirin, enteric coated (ASPIR-81) 81 mg EC tablet Take 1 tablet by mouth once daily. terazosin (HYTRIN) 5 mg capsule Take 1 capsule by mouth daily at bedtime. terazosin (HYTRIN) 5 mg capsule Take 1 capsule by mouth daily at bedtime. homeopathic drugs (PROSTATE ORAL) Take by mouth. FAMILY HISTORY Problem Relation Age of Onset Hypertension Mother Diabetes Mother Cancer Mother uterine and cervical mets to lung, other (macular degeneration) Mother other (unknown left home 1945) Father Heart Brother CABG, Diabetes Brother obese Social History Tobacco Use Smoking status: Former Packs/day: 0.50 Years: 20.00 Additional pack years: 0.00 Total pack years: 10.00 Types: Cigarettes Quit date: 04/17/1968 Years since quittin.7 Smokeless tobacco: Never Vaping Use Vaping Use: Never used Substance Use Topics Alcohol use: No Drug use: No BP 126/68 Pulse 82 Resp 16 Wt 78.5 kg (173 lb) SpO2 98% BMI 25.18 kg/m Physical Exam Vitals reviewed. Constitutional: General: He is awake. He is not in acute distress. Appearance: He is not ill-appearing. Eyes: Extraocular Movements: Extraocular movements intact. Pupils: Pupils are equal, round, and reactive to light. Cardiovascular: Rate and Rhythm: Normal rate and regular rhythm. Pulses: Normal pulses. Heart sounds: Normal heart sounds. No murmur heard. Pulmonary: Effort: Pulmonary effort is normal. Breath sounds: Normal breath sounds. No wheezing, rhonchi or rales. Neurological: General: No focal deficit present. Mental Status: He is alert. Cranial Nerves: Cranial nerves 2-12 are intact. Sensory: Sensation is intact. Motor: Motor function is intact. Coordination: Coordination is intact. Gait: Gait is intact. Deep Tendon Reflexes: Reflexes are normal and symmetric. Psychiatric: Behavior: Behavior is cooperative. DATA REVIEWED: Outside chart from [facility] ER reviewed. ASSESSMENT/PLAN: 1. TIA (transient ischemic attack) - ICD9: 435.9, ICD10: G45.9 (primary diagnosis) No further episodes since discharge, except see below. Continue with Lipitor and ASA. Follow-up in one month or sooner if needed. 2. Left upper extremity numbness - ICD9: 782.0, ICD10: R20.0 Patient denies numbness and neuro exam normal however patient was unable to hold on to papers in his left hand and dropped them multiples in a row. Discussed with Dr. Mayer, significance of this is unclear. Instructed to notify me right away if any symptoms like this continue. May need nerve conduction study/EMG. To ER or call 911 for any stroke like symptoms 3. Memory impairment - ICD9: 780.93, ICD10: R41.3 New onset per patient (see HPI). Possibly due to anxiety/stress from hospital admission. Continue to monitor and follow-up in one month, if still an issue will do memory testing and/or consider rechecking MRI. Prescription instructions reviewed with patient as applicable. Potential red flag symptoms discussed with the patient. Reviewed appropriate action plan to take if red flag symptoms occur. Patient agreeable to treatment plan. Laurita Aguilar APRN.CNP documented in this encounter [facility] 11-18-2022 Miscellaneous Notes Patient states that he has one tablet left of terazosin. Please sent short term to retail and day to mail order. Pending. P Irineo Serial, Digital BP Readings, Taken 2 Minutes Apart, Average Readings: 139/73 Pulse: 72 129/73 71 142/73 71 151/75 73 146/72 73 128/73 73 Reason for blood pressure check - Last BP elevated and Medication adjustment Patient is: Taking medication as prescribed Yes Took medication today Yes If no, date medication last taken n/a Experiencing side effects No Recommendations Continue taking medications as prescribed, Follow recommended diet instructions, Continue recommended activity, and Avoid excessive salt Follow-up Yes Pt has been identified by name and birthdate: Yes Allergies reviewed: Yes Latex allergy: no. Medication - prescribed and OTC reviewed and updated: Yes Do you need any prescription refills prior to your next visit: Yes Health Maintenance: Reviewed and up to date documented in this encounter [facility] 11-18-2022 Note HNO ID: [id number] Author: Dez Walter Ma Service: ? Author Type: ? Type: Progress Notes Filed: 11/18/2022 1:26 PM Note Text: BP Irineo Serial, Digital BP Readings, Taken 2 Minutes Apart, Average Readings: 139/73 Pulse: 72 129/73 71 142/73 71 151/75 73 146/72 73 128/73 73 Reason for blood pressure check - Last BP elevated and Medication adjustment Patient is: Taking medication as prescribed Yes Took medication today Yes If no, date medication last taken n/a Experiencing side effects No Recommendations Continue taking medications as prescribed, Follow recommended diet instructions, Continue recommended activity, and Avoid excessive salt Follow-up Yes Pt has been identified by name and birthdate: Yes Allergies reviewed: Yes Latex allergy: no. Medication - prescribed and OTC reviewed and updated: Yes Do you need any prescription refills prior to your next visit: Yes Health Maintenance: Reviewed and up to date [facility] 11-18-2022 History of Present illness Narrative BP Irineo Serial, Digital BP Readings, Taken 2 Minutes Apart, Average Readings: 139/73 Pulse: 72 129/73 71 142/73 71 151/75 73 146/72 73 128/73 73 Reason for blood pressure check - Last BP elevated and Medication adjustment Patient is: Taking medication as prescribed Yes Took medication today Yes If no, date medication last taken n/a Experiencing side effects No Recommendations Continue taking medications as prescribed, Follow recommended diet instructions, Continue recommended activity, and Avoid excessive salt Follow-up Yes Pt has been identified by name and birthdate: Yes Allergies reviewed: Yes Latex allergy: no. Medication - prescribed and OTC reviewed and updated: Yes Do you need any prescription refills prior to your next visit: Yes Health Maintenance: Reviewed and up to date documented in this encounter [facility] 11-02-2022 Note HNO ID: [id number] Author: Edvin Godoy RN Service: ? Author Type: Registered Nurse Type: Progress Notes Filed: 11/02/2022 12:26 PM Note Text: ACM LORIN RN Action/FYI: Medication Adherence review completed per request of payer. NO PROVIDER ACTION REQUIRED Please see requests in the Summary/Findings section below Patient identified by name and date of . Patient Attributed To: QAE Payer: [facility] Reason for review or outreach: Medication Adherence Medication Adherence Review Details: Hypertension Summary / Findings: Patient is no longer prescribed Losartan, d/c on 10/07/22 by PCP d/t side effect of dizziness/light headiness Action Taken: Data submitted to Payer Other Contact made with patient: No, Chart review only. Signature: Edvin Godoy RN [facility] 11-02-2022 Note Patient Outreach (ANGELES TNAV) JUAN MOLINA ([id number]) 1935 M Date Time Provider Department 11/02/22 EDVIN GODOY During your visit today, we recorded the following information about you: Edvin Godoy RN 11/02/2022 12:26 PM Signed [facility] LORIN RN Action/FYI: Medication Adherence review completed per request of payer. NO PROVIDER ACTION REQUIRED Please see requests in the Summary/Findings section below Patient identified by name and date of . Patient Attributed To: [facility] Payer: [facility] Reason for review or outreach: Medication Adherence Medication Adherence Review Details: Hypertension Summary / Findings: Patient is no longer prescribed Losartan, d/c on 10/07/22 by PCP d/t side effect of dizziness/light headiness Action Taken: Data submitted to Payer Other Contact made with patient: No, Chart review only. Signature: Edvin Godoy RN Allergies As of Date: 11/02/2022 (No Known Allergies) Date Reviewed: 10/07/2022 Reviewed by: Dez Walter Ma - Fully Assessed Reason for Visit: [facility] LORIN RN [[id number]] Cmt: Medication Adherence review per request of payer Prescriptions as of 11/02/2022 - amLODIPine (NORVASC) 5 mg tablet Take 1 tablet by mouth once daily. - terazosin (HYTRIN) 5 mg capsule Take 1 capsule by mouth daily at bedtime. - homeopathic drugs (PROSTATE ORAL) Take by mouth. - aspirin, enteric coated (ASPIR-81) 81 mg EC tablet Take 1 tablet by mouth once daily. 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] 12/10/2004 01/12/2006 GLAUCOMATOCYCLIT CRISES [H40.40X0, H20.9] 12/10/2004 01/12/2006 SLEEP APNEA [G47.30] 01/04/2005 12/09/2014 Elevated prostate specific antigen (PSA) [R97.2*03/18/2005 09/17/2020 BPH with obstruction/lower urinary tract sympto*09/24/2007 Unspecified hypertrophic and atrophic condition*03/20/2009 12/09/2014 Benign neoplasm of scalp and skin of neck [D23.*04/06/2009 12/09/2014 Benign neoplasm of ear and external auditory ca*04/06/2009 06/11/2015 Benign neoplasm of skin of other and unspecifie*04/06/2009 06/11/2015 Actinic Keratoses: Premalignant AK's [L57.0] 05/19/2011 Irritated//Inflamed Seborrheic Keratosis [L82.0]05/19/2011 12/09/2014 Other Seborrheic Keratoses [L82.1] 05/19/2011 04/01/2022 Actinic skin damage [L57.8] 05/19/2011 12/09/2014 Solar Lentigines [L81.4] 05/19/2011 12/09/2014 Neoplasm of uncertain behavior of skin: ?early *12/25/2011 01/09/2013 R/O BCC (basal cell carcinoma), face: L lower a*08/08/2012 01/09/2013 Neoplasm of Uncertain Behavior(NUB) of skin: up*01/09/2013 12/09/2014 Santo angioma [D18.01] 01/09/2013 12/09/2014 Atypical nevus of back [D22.5] 01/09/2013 05/11/2016 Scars [L90.5] 01/09/2013 12/09/2014 Personal history of other malignant neoplasm of*01/09/2013 11/08/2016 Open wound(s) (multiple) of unspecified site(s)*03/28/2013 12/09/2014 Gallstone pancreatitis [K85.10] 01/15/2015 06/11/2015 Calculus of gallbladder with chronic cholecysti*02/11/2015 06/11/2015 Acute cholecystitis with chronic cholecystitis *03/24/2015 06/11/2015 Right inguinal hernia [K40.90] 07/10/2015 05/11/2016 Thrombocytopenia (HCC) [D69.6] 07/20/2015 11/08/2016 Bilateral hearing loss [H91.93] 07/20/2015 AIMEE (obstructive sleep apnea) intolerant to CPA*07/20/2015 09/17/2020 Glaucoma [H40.9] 07/20/2015 Impaired fasting glucose [R73.01] 11/09/2015 Tubular adenoma of colon [D12.6] 06/23/2016 09/17/2020 CKD (chronic kidney disease) stage 3, GFR 30-59*06/30/2017 04/01/2022 Umbilical hernia without obstruction and withou*03/25/2021 Hypertensive kidney disease with chronic kidney*09/28/2021 Encounter Status:Closed by EDVIN GODOY on 11/02/22 [facility] 11-02-2022 History of Present illness Narrative ACM LORIN RN Action/FYI: Medication Adherence review completed per request of payer. NO PROVIDER ACTION REQUIRED Please see requests in the Summary/Findings section below Patient identified by name and date of . Patient Attributed To: QAE Payer: [facility] Reason for review or outreach: Medication Adherence Medication Adherence Review Details: Hypertension Summary / Findings: Patient is no longer prescribed Losartan, d/c on 10/07/22 by PCP d/t side effect of dizziness/light headiness Action Taken: Data submitted to Payer Other Contact made with patient: No, Chart review only. Signature: Edvin Godoy RN documented in this encounter [facility] 10-07-2022 Note HNO ID: [id number] Author: Cholo Friedman MD Service: ? Author Type: Physician Type: Progress Notes Filed: 10/07/2022 1:05 PM Note Text: This note was created using Videdressingriter. Subjective Juan Molina is a 87 year old male. His hypertension was controlled, but he complained of lightheadedness with physical activity and relieved by rest since starting losartan 3 months ago. He had no syncope or other CV symptoms. He noted dizziness mainly with prolonged ambulation around his property. He ran out of losartan a few days ago and did not want to continue. He was losing some weight by following a low carb, no salt diet. Review of Systems Constitutional: Negative for appetite change, diaphoresis, fatigue and unexpected weight change. HENT: Negative. Eyes: Negative for visual disturbance. Respiratory: Negative for cough, chest tightness and shortness of breath. Cardiovascular: Negative for chest pain, palpitations and leg swelling. Gastrointestinal: Negative for diarrhea, nausea and vomiting. Genitourinary: Negative for difficulty urinating. Musculoskeletal: Negative for gait problem. Neurological: Negative for syncope, facial asymmetry and headaches. Psychiatric/Behavioral: Negative for sleep disturbance. 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 terazosin (HYTRIN) 5 mg capsule Take 1 capsule by mouth daily at bedtime. homeopathic drugs (PROSTATE ORAL) Take by mouth. aspirin, enteric coated (ASPIR-81) 81 mg EC tablet Take 1 tablet by mouth once daily. No current facility-administered medications for this visit. Objective BP 128/66 Pulse 74 Resp 12 Ht 176.5 cm (5' 9.5 ) Wt 80.3 kg (177 lb) BMI 25.76 kg/m? Physical Exam Constitutional: Appearance: He is not ill-appearing. Eyes: Conjunctiva/sclera: Conjunctivae normal. Cardiovascular: Rate and Rhythm: Normal rate and regular rhythm. Heart sounds: No murmur heard. No gallop. Pulmonary: Effort: Pulmonary effort is normal. Breath sounds: Normal breath sounds. No wheezing or rales. Abdominal: Tenderness: There is no abdominal tenderness. Musculoskeletal: Right lower leg: No edema. Left lower leg: No edema. Neurological: General: No focal deficit present. Mental Status: He is alert and oriented to person, place, and time. Sensory: No sensory deficit. Motor: No weakness. Coordination: Coordination normal. Gait: Gait normal. Psychiatric: Mood and Affect: Mood normal. Assessment and Plan 1. Medicare annual wellness visit, subsequent - ICD9: V70.0, ICD10: Z00.00 (primary diagnosis) See wellness note. 2. Essential hypertension - ICD9: 401.9, ICD10: I10 - Controlled - Stop losartan - Encouraged sodium restriction, DASH or Mediterranean diet - Continue AMLODIPINE and TERAZOSIN. - BASIC METABOLIC PNL 3. Hypertensive kidney disease with stage 3a chronic kidney disease (HCC) - ICD9: 403.90, 585.3, ICD10: I12.9, N18.31 Monitor. - Counseled on avoiding NSAIDs, adequate hydration - BASIC METABOLIC PNL 4. Impaired fasting glucose - ICD9: 790.21, ICD10: R73.01 Monitor. 5. Hyperlipidemia, unspecified hyperlipidemia type - ICD9: 272.4, ICD10: E78.5 - Control undetermined, due for labs - Counseled on healthy diet and regular exercise - LIPID PANEL BASIC 6. Dizziness - ICD9: 780.4, ICD10: R42 From medication? LOSARTAN discontinued. Expect improvement in 1 week. Return sooner if with no improvement. Cohlo Friedman MD [facility] 10-07-2022 Note HNO ID: [id number] Author: Cholo Friedman MD Service: ? Author Type: Physician Type: Progress Notes Filed: 10/07/2022 1:05 PM Note Text: Juan Molina is a 87 year old male here for a Medicare Subsequent Annual Wellness Visit Health Risk Assessment In general, health is: Good Concerns with balance:Not at all Concerns with teeth or dentures:Not at all Concerns with sexual function:Not at all [place] anxious, stressed, angry, irritable, lonely, isolated, or had thoughts of hurting themself: Not at all Has little interest or pleasure in doing things: Not at all Bothered by feeling down, depressed, or hopeless: Not at all Needs help with grocery shopping, cooking, housework, bathing, grooming, dressing, eating, sitting or standing, walking, using the toilet, handling finances, taking medications, using the telephone, or driving: No Following safety precautions in the home environment and vehicle: removed throw rugs from floors, installed grab bars in the bathroom, handrails in stairwells, having adequate lighting, wearing seatbelt at all times?: Yes Smokes cigarettes, vapes, or chew tobacco: No Eats healthy foods including fruits, vegetables, whole grains, and fiber-rich foods: Nearly every day Number of days per week engages in exercise: 7 days Average alcohol consumption: Never Current Providers Specialists: I have reviewed specialist-related care of the patient in the medical record. Current care team: Patient Care Team: Cholo Friedman MD as PCP - General Outside specialists seen: Dr. Truman Rangel. Medical/Family history review Reviewed and updated problem list, medical/surgical/family/social history, medications, and allergies. Opioid use review Patient is not currently using opioids. Depression screening Depression Screening PHQ-2 Score NICOLAS-2 Total Score 04/01/2022 0 - Depression screening tool completed and reviewed. Based on score and interview, patient is not at risk for depression. Screening tool discussed with patient, and I recommended no further intervention at this time. Cognitive screening Mini Cog Score: declined. Cognitive screening reviewed and no further action needed (score 3-5) Functional Observation Was the patient's timed Up AND Go test unsteady or ? 12 seconds? No Advance Care Planning End of Life planning discussed, including patient's advanced directive wishes: Yes Measurements BP 128/66 Pulse 74 Resp 12 Ht 5' 9.5 (1.77m) Wt 177 lb (80.3kg) BMI 25.77 kg/(m2). Visual acuity (required for Welcome to Medicare): Right: 20/70 Left: 20/ 20 Both: 20/20 Hearing Evaluation: wears hearing aids Assessment/Plan - Counseled on healthy diet and regular exercise - Fall avoidance - Vaccines recommended declined. - Depression screening [facility] 10-07-2022 History of Present illness Narrative This note was created using Just Dial. Subjective Juan Molina is a 87 year old male. His hypertension was controlled, but he complained of lightheadedness with physical activity and relieved by rest since starting losartan 3 months ago. He had no syncope or other CV symptoms. He noted dizziness mainly with prolonged ambulation around his property. He ran out of losartan a few days ago and did not want to continue. He was losing some weight by following a low carb, no salt diet. Review of Systems Constitutional: Negative for appetite change, diaphoresis, fatigue and unexpected weight change. HENT: Negative. Eyes: Negative for visual disturbance. Respiratory: Negative for cough, chest tightness and shortness of breath. Cardiovascular: Negative for chest pain, palpitations and leg swelling. Gastrointestinal: Negative for diarrhea, nausea and vomiting. Genitourinary: Negative for difficulty urinating. Musculoskeletal: Negative for gait problem. Neurological: Negative for syncope, facial asymmetry and headaches. Psychiatric/Behavioral: Negative for sleep disturbance. 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 terazosin (HYTRIN) 5 mg capsule Take 1 capsule by mouth daily at bedtime. homeopathic drugs (PROSTATE ORAL) Take by mouth. aspirin, enteric coated (ASPIR-81) 81 mg EC tablet Take 1 tablet by mouth once daily. No current facility-administered medications for this visit. Objective BP 128/66 Pulse 74 Resp 12 Ht 176.5 cm (5' 9.5 ) Wt 80.3 kg (177 lb) BMI 25.76 kg/m Physical Exam Constitutional: Appearance: He is not ill-appearing. Eyes: Conjunctiva/sclera: Conjunctivae normal. Cardiovascular: Rate and Rhythm: Normal rate and regular rhythm. Heart sounds: No murmur heard. No gallop. Pulmonary: Effort: Pulmonary effort is normal. Breath sounds: Normal breath sounds. No wheezing or rales. Abdominal: Tenderness: There is no abdominal tenderness. Musculoskeletal: Right lower leg: No edema. Left lower leg: No edema. Neurological: General: No focal deficit present. Mental Status: He is alert and oriented to person, place, and time. Sensory: No sensory deficit. Motor: No weakness. Coordination: Coordination normal. Gait: Gait normal. Psychiatric: Mood and Affect: Mood normal. Assessment and Plan 1. Medicare annual wellness visit, subsequent - ICD9: V70.0, ICD10: Z00.00 (primary diagnosis) See wellness note. 2. Essential hypertension - ICD9: 401.9, ICD10: I10 - Controlled - Stop losartan - Encouraged sodium restriction, DASH or Mediterranean diet - Continue AMLODIPINE and TERAZOSIN. - BASIC METABOLIC PNL 3. Hypertensive kidney disease with stage 3a chronic kidney disease (HCC) - ICD9: 403.90, 585.3, ICD10: I12.9, N18.31 Monitor. - Counseled on avoiding NSAIDs, adequate hydration - BASIC METABOLIC PNL 4. Impaired fasting glucose - ICD9: 790.21, ICD10: R73.01 Monitor. 5. Hyperlipidemia, unspecified hyperlipidemia type - ICD9: 272.4, ICD10: E78.5 - Control undetermined, due for labs - Counseled on healthy diet and regular exercise - LIPID PANEL BASIC 6. Dizziness - ICD9: 780.4, ICD10: R42 From medication? LOSARTAN discontinued. Expect improvement in 1 week. Return sooner if with no improvement. Cholo Friedman MD Juan Molina is a 87 year old male here for a Medicare Subsequent Annual Wellness Visit Health Risk Assessment In general, health is: Good Concerns with balance:Not at all Concerns with teeth or dentures:Not at all Concerns with sexual function:Not at all [place] anxious, stressed, angry, irritable, lonely, isolated, or had thoughts of hurting themself: Not at all Has little interest or pleasure in doing things: Not at all Bothered by feeling down, depressed, or hopeless: Not at all Needs help with grocery shopping, cooking, housework, bathing, grooming, dressing, eating, sitting or standing, walking, using the toilet, handling finances, taking medications, using the telephone, or driving: No Following safety precautions in the home environment and vehicle: removed throw rugs from floors, installed grab bars in the bathroom, handrails in stairwells, having adequate lighting, wearing seatbelt at all times?: Yes Smokes cigarettes, vapes, or chew tobacco: No Eats healthy foods including fruits, vegetables, whole grains, and fiber-rich foods: Nearly every day Number of days per week engages in exercise: 7 days Average alcohol consumption: Never Current Providers Specialists: I have reviewed specialist-related care of the patient in the medical record. Current care team: Patient Care Team: Cholo Friedman MD as PCP - General Outside specialists seen: Dr. Truman Rangel. Medical/Family history review Reviewed and updated problem list, medical/surgical/family/social history, medications, and allergies. Opioid use review Patient is not currently using opioids. Depression screening Depression Screening PHQ-2 Score NICOLAS-2 Total Score 04/01/2022 0 - Depression screening tool completed and reviewed. Based on score and interview, patient is not at risk for depression. Screening tool discussed with patient, and I recommended no further intervention at this time. Cognitive screening Mini Cog Score: declined. Cognitive screening reviewed and no further action needed (score 3-5) Functional Observation Was the patient's timed Up & Go test unsteady or ? 12 seconds? No Advance Care Planning End of Life planning discussed, including patient's advanced directive wishes: Yes Measurements BP 128/66 Pulse 74 Resp 12 Ht 5' 9.5 (1.77m) Wt 177 lb (80.3kg) BMI 25.77 kg/(m^2). Visual acuity (required for Welcome to Medicare): Right: 20/70 Left: 20/ 20 Both: 20/20 Hearing Evaluation: wears hearing aids Assessment/Plan - Counseled on healthy diet and regular exercise - Fall avoidance - Vaccines recommended declined. - Depression screening documented in this encounter [facility] 10-07-2022 Instructions Cholo Friedman MD - 10/07/2022 12:23 PM EDT Recombinant shingles vaccine (Shingrix) is recommended; 2 doses 2-6 months apart. Please read information, check with your insurance, and schedule vaccination at your local pharmacy. A prescription is not required. If you are certain you have coverage to receive this vaccine in the office, we can schedule this for you. documented in this encounter [facility] 06-30-2022 Note HNO ID: [id number] Author: Cholo Friedman MD Service: ? Author Type: Physician Type: Progress Notes Filed: 07/02/2022 10:58 PM Note Text: This note was created using Just Dial. Subjective Juan Molina is a 86 year old male. His hypertension was not well controlled. We reduced amlodipine due to dizziness, but his BP was higher today. He was taking all medications listed. Review of Systems Constitutional: Negative. Respiratory: Negative. Cardiovascular: Negative. Neurological: Negative for dizziness, facial asymmetry and headaches. Hematological: Does not bruise/bleed easily. 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 terazosin (HYTRIN) 5 mg capsule Take 1 capsule by mouth daily at bedtime. homeopathic drugs (PROSTATE ORAL) Take by mouth. aspirin, enteric coated (ASPIR-81) 81 mg EC tablet Take 1 tablet by mouth once daily. No current facility-administered medications for this visit. Objective BP 151/75 (BP Site: Left Arm, BP Position: Sitting, BP Cuff Size: Large Adult) Pulse 65 Resp 12 Wt 81.2 kg (179 lb) BMI 26.43 kg/m? Physical Exam Constitutional: Appearance: He is not ill-appearing. Cardiovascular: Rate and Rhythm: Normal rate and regular rhythm. Heart sounds: No murmur heard. Pulmonary: Effort: No respiratory distress. Breath sounds: Normal breath sounds. Musculoskeletal: General: No swelling. Right lower leg: No edema. Left lower leg: No edema. Neurological: Mental Status: He is alert. Component Latest Ref Rng AND Units 05/24/2022 Glucose 74 - 99 mg/dL 120 (H) BUN 9 - 24 mg/dL 18 Creatinine 0.73 - 1.22 mg/dL 1.29 (H) Sodium 136 - 144 mmol/L 141 Potassium 3.7 - 5.1 mmol/L 4.3 Chloride 97 - 105 mmol/L 105 CO2 22 - 30 mmol/L 31 (H) Anion Gap 9 - 18 mmol/L 5 (L) Calcium 8.5 - 10.2 mg/dL 9.3 eGFR >=60 mL/min/1.73mA? 54 (L) Hemoglobin A1C 4.3 - 5.6 % 5.8 (H) Estimated Average Glucose mg/dL 120 Assessment and Plan 1. Essential hypertension - ICD9: 401.9, ICD10: I10 (primary diagnosis) - poor control - Continue current medication(s) - Add losartan(Cozaar) - Reviewed risks of HTN and principles of treatment - Goal of BP <130/80 - LOSARTAN 25 MG TABLET 2. Hypertensive kidney disease with stage 3a chronic kidney disease (HCC) - ICD9: 403.90, 585.3, ICD10: I12.9, N18.31 - Reviewed risks of HTN and principles of treatment - Goal of BP <130/80 - eGFR: Stable - Counseled on avoiding regular use of NSAIDs, adequate hydration, potential risk of IV dye Cholo Friedman MD [facility] 06-30-2022 History of Present illness Narrative This note was created using Videdressingriter. Subjective Juan Molina is a 86 year old male. His hypertension was not well controlled. We reduced amlodipine due to dizziness, but his BP was higher today. He was taking all medications listed. Review of Systems Constitutional: Negative. Respiratory: Negative. Cardiovascular: Negative. Neurological: Negative for dizziness, facial asymmetry and headaches. Hematological: Does not bruise/bleed easily. 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 terazosin (HYTRIN) 5 mg capsule Take 1 capsule by mouth daily at bedtime. homeopathic drugs (PROSTATE ORAL) Take by mouth. aspirin, enteric coated (ASPIR-81) 81 mg EC tablet Take 1 tablet by mouth once daily. No current facility-administered medications for this visit. Objective BP 151/75 (BP Site: Left Arm, BP Position: Sitting, BP Cuff Size: Large Adult) Pulse 65 Resp 12 Wt 81.2 kg (179 lb) BMI 26.43 kg/m Physical Exam Constitutional: Appearance: He is not ill-appearing. Cardiovascular: Rate and Rhythm: Normal rate and regular rhythm. Heart sounds: No murmur heard. Pulmonary: Effort: No respiratory distress. Breath sounds: Normal breath sounds. Musculoskeletal: General: No swelling. Right lower leg: No edema. Left lower leg: No edema. Neurological: Mental Status: He is alert. Component Latest Ref Rng & Units 05/24/2022 Glucose 74 - 99 mg/dL 120 (H) BUN 9 - 24 mg/dL 18 Creatinine 0.73 - 1.22 mg/dL 1.29 (H) Sodium 136 - 144 mmol/L 141 Potassium 3.7 - 5.1 mmol/L 4.3 Chloride 97 - 105 mmol/L 105 CO2 22 - 30 mmol/L 31 (H) Anion Gap 9 - 18 mmol/L 5 (L) Calcium 8.5 - 10.2 mg/dL 9.3 eGFR >=60 mL/min/1.73m 54 (L) Hemoglobin A1C 4.3 - 5.6 % 5.8 (H) Estimated Average Glucose mg/dL 120 Assessment and Plan 1. Essential hypertension - ICD9: 401.9, ICD10: I10 (primary diagnosis) - poor control - Continue current medication(s) - Add losartan(Cozaar) - Reviewed risks of HTN and principles of treatment - Goal of BP <130/80 - LOSARTAN 25 MG TABLET 2. Hypertensive kidney disease with stage 3a chronic kidney disease (HCC) - ICD9: 403.90, 585.3, ICD10: I12.9, N18.31 - Reviewed risks of HTN and principles of treatment - Goal of BP <130/80 - eGFR: Stable - Counseled on avoiding regular use of NSAIDs, adequate hydration, potential risk of IV dye Cholo Friedman MD documented in this encounter [facility] 04-01-2022 Instructions Cholo Friedman MD - 04/01/2022 10:53 AM EST FASTING BLOOD WORK BEFORE CALDWELL'S DAY. documented in this encounter [facility] 04-01-2022 History of Present illness Narrative This note was created using Just Dial. Subjective Juan Molina is a 86 year old male. He saw PRODUCT DEVELOPMENT COORDINATOR 3 months ago and complained of orthostatic dizziness, mainly when getting up from a low or squatting position. His blood pressure was well controlled. Amlodipine was reduced, and the dizziness was less. However, he noted his blood pressure was running higher. He was losing weight from watching his diet, as he was getting closer to diabetes. Review of Systems Constitutional: Negative. Respiratory: Negative. Cardiovascular: Negative. Gastrointestinal: Negative. Genitourinary: Negative for difficulty urinating. Neurological: Positive for light-headedness. Negative for dizziness, facial asymmetry, weakness, numbness and headaches. 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 terazosin (HYTRIN) 5 mg capsule Take 1 capsule by mouth daily at bedtime. homeopathic drugs (PROSTATE ORAL) Take by mouth. aspirin, enteric coated (ASPIR-81) 81 mg EC tablet Take 1 tablet by mouth once daily. No current facility-administered medications for this visit. Objective BP 142/72 Pulse 71 Temp 37 C (98.6 F) Resp 16 Wt 79.7 kg (175 lb 11.2 oz) SpO2 98% BMI 25.95 kg/m Physical Exam Constitutional: General: He is not in acute distress. Cardiovascular: Rate and Rhythm: Normal rate and regular rhythm. Heart sounds: No murmur heard. No gallop. Pulmonary: Breath sounds: Normal breath sounds. Musculoskeletal: Right lower leg: No edema. Left lower leg: No edema. Neurological: General: No focal deficit present. Mental Status: He is alert and oriented to person, place, and time. Cranial Nerves: No cranial nerve deficit. Motor: No weakness. Gait: Gait normal. Dizziness not elicited on examination today. Assessment and Plan 1. Essential hypertension - ICD9: 401.9, ICD10: I10 (primary diagnosis) - suboptimal control - Shared medical decision making was done. Options were discussed, and we agreed to no changes for now. He will continue to work on diet and weight loss. If not better, consider switching terazosin to tamsulosin, and adding an ARB for blood pressure. He did not tolerate hydrochlorothiazide and metoprolol in the past. 2. Need for influenza vaccination - ICD9: V04.81, ICD10: Z23 - INFLUENZA SEASONAL QUADRIVALENT HIGH DOSE AGE 65+ 3. BPH with obstruction/lower urinary tract symptoms - ICD9: 600.01, 599.69, ICD10: N40.1, N13.8 Controlled. 4. Impaired fasting glucose - ICD9: 790.21, ICD10: R73.01 Do labs in May. 5. Hypertensive kidney disease with stage 3a chronic kidney disease (HCC) - ICD9: 403.90, 585.3, ICD10: I12.9, N18.31 Monitor. 6. Episodic lightheadedness - ICD9: 780.4, ICD10: R42 Improved. See #1. Cholo Friedman MD documented in this encounter [facility] 01-07-2022 Miscellaneous Notes Patient contacted and given provider's message below. Patient asking Laurita Aguilar to send script for amlodipine 5 mg to [email or web address]. Thank you. Please let the patient know his labs looked good. Decrease amlodipine to 5 mg daily. Schedule BP follow-up in 4 weeks Laurita Aguilar APRN.CNP documented in this encounter [facility] 01-07-2022 History of Present illness Narrative CC: Patient presents with: Blood Pressure Check: Complains of dizziness. Patient states stopped taking bp meds in the last 24 hours. HPI Juan Molina is a 86 year old male who presents today for above. Patient reports for the past two weeks he has been feeling lightheaded when he over exerts himself, especially when he is doing a lot of bending and heavy lifting. He denies lightheadedness with position changes or at rest. Checks BP daily, typically in the 120's/70's but a couple times this week his systolic BP has been in the double digits . He did not take his BP medications yesterday or today yet. Denies feeling faint, syncope, chest pain, palpitations, SOB, edema. No recent illnesses. Admits to not drinking any water. Drinks about 3-4 cups of coffee a day. REVIEW OF SYSTEMS General: intentional weight loss of about 30 lbs in 3 months. 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 Intracranial hemorrhage following injury ([facility]) 05/27/2014 AIMEE (obstructive sleep apnea) intolerant to CPAP 07/20/2015 Other and unspecified hyperlipidemia 12/10/2004 Sebaceous cyst back SLEEP APNEA 01/04/2005 Nasal CPAP 7cm H2O Thrombocytopenia ([facility]) Tubular adenoma of colon 06/23/2016 Umbilical hernia without obstruction and without gangrene 03/25/2021 Unspecified essential hypertension 12/10/2004 Unspecified transient cerebral ischemia 12/10/2004 PAST SURGICAL HISTORY Procedure Laterality Date CHOLECYSTECTOMY W/EXPLOR 03/30/2015 adhesions, Heinecke-Mikulicz pyloroplasty [place] modification. 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 MEDICATIONS terazosin (HYTRIN) 5 mg capsule Take 1 capsule by mouth daily at bedtime. amLODIPine (NORVASC) 10 mg tablet Take 1 tablet by mouth once daily. homeopathic drugs (PROSTATE ORAL) Take by mouth. aspirin, enteric coated (ASPIR-81) 81 mg EC tablet Take 1 tablet by mouth once daily. FAMILY HISTORY Problem Relation Age of Onset Hypertension Mother Diabetes Mother Cancer Mother uterine and cervical mets to lung, other (macular degeneration) Mother other (unknown left home 1944) Father Heart Brother CABG, Diabetes Brother obese Social History Tobacco Use Smoking status: Former Packs/day: 0.50 Years: 20.00 Pack years: 10.00 Types: Cigarettes Quit date: 04/17/1968 Years since quittin.7 Smokeless tobacco: Never Vaping Use Vaping Use: Never used Substance Use Topics Alcohol use: No Drug use: No PHYSICAL EXAM BP 128/72 Pulse 71 Ht 175.3 cm (5' 9 ) Wt 77 kg (169 lb 11.2 oz) SpO2 98% BMI 25.06 kg/m General Appearance: well appearing, in no acute distress, alert Pysch: mood and affect broad and appropriate Skin: Skin color, texture, turgor normal for age; Eyes: conjunctiva pink and moist, no icterus, sclera white, non-injected Oropharynx: moist Lungs: Lungs clear to auscultation. No wheezing, rhonchi, rales. Heart: RRR without murmur, gallop, or rubs. No ectopy Ext: no edema in LE bilaterally, good distal pulses DATA REVIEWED: Most recent labs ASSESSMENT/PLAN: 1. Episodic lightheadedness - ICD9: 780.4, ICD10: R42 (primary diagnosis) No alarm symptoms or exam findings. Stat labs: - CBC + DIFF - BASIC METABOLIC PNL Increase water intake, change position slowly Will wait for lab results to determine if BP medication needs adjusted 2. Essential hypertension - ICD9: 401.9, ICD10: I10 - good control - Continue current medication(s) for now Prescription instructions reviewed with patient as applicable. Potential red flag symptoms discussed with the patient. Reviewed appropriate action plan to take if red flag symptoms occur. Patient agreeable to treatment plan. Laurita Aguilar APRN.CNP documented in this encounter [facility] 11-11-2021 Miscellaneous Notes Okay. Continue. Manual Readin/75 Pulse: 65 BP Irineo average: 127/70 P: 63 Repeat BP Check: 138/72 P61 #1 126/71 P64 #2 124/70 P64 #3 121/69 P64 #4 126/70 P63 #5 125/69 P61 #6 Reason for blood pressure check - Medication adjustment Patient is: Taking medication as prescribed Yes Took medication today Yes If no, date medication last taken N/A Experiencing side effects No BP was normal at last appt 09/30/21. Toprol was decreased to 25mg daily. However, per TE on 10/28/21, Toprol was d/c. States that he has been feeling better since medication was stopped; no further dizziness. Denies any chest pain, shortness of breath, or headaches. Daily caffeine use. Past personal history of tobacco use; no current exposure. Alert and oriented. Pt has been identified by name and birthdate: Yes Allergies reviewed: Yes Latex allergy: no. Medication - prescribed and OTC reviewed and updated: Yes Do you need any prescription refills prior to your next visit: No Health Maintenance: Reviewed and not up to date and provider notified Patient advised to continue with current medications and would be contacted if any further instructions after review by PCP. Nikki Wallace LPN documented in this encounter [facility] 10-28-2021 Miscellaneous Notes Left below recommendation on identified vm. Nichole Pike LPN Stop metoprolol. Continue other medications. Patient calls and states that his blood pressure continues to be on the lower side. Patient states that his blood pressure has been running low even with the decrease in metoprolol. Patient states that he is only eating carrots, lettuce, fish, granola, and chicken patties. 10/17- 98/58 07/- 94/50 07/05 106/64 07/06 123/64 07/07 106/57 07/08 116/61 07/09 107/58 07/10 100/49 07/11 111/64 07/12 110/59 07/13 94/51 07/14 90/48 Patient states that when he is working outside he feels dizzy. Patient asking if he should be still taking blood pressure medication? Patient has nurse visit 11/11 to check blood pressure. Please review and advise, Lalita Weston RN documented in this encounter [facility] 09-30-2021 Instructions Cholo Friedman MD - 09/30/2021 8:27 AM EDT SHINGRIX VACCINE(2 of 3) due on 12/16/2014 COVID-19 VACCINE(3 - Booster for Pfizer series) due on 03/22/2021 ADVANCE DIRECTIVE documented in this encounter [facility] 09-30-2021 History of Present illness Narrative This note was created using Videdressingriter. Subjective Juan Molina is a 86 year old male. He had no concerns other than refills. His diet was more sugar rich lately. He declined cholesterol medication. Review of Systems Constitutional: Negative. Respiratory: Negative. Cardiovascular: Positive for leg swelling. Negative for chest pain and palpitations. Gastrointestinal: Positive for abdominal pain. Genitourinary: Negative. Neurological: Negative for dizziness and headaches. 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 amLODIPine (NORVASC) 10 mg tablet Take 1 tablet by mouth once daily. metoprolol succinate ER (TOPROL XL) 50 mg 24 hr tablet Take 1 tablet by mouth once daily. homeopathic drugs (PROSTATE ORAL) Take by mouth. aspirin, enteric coated (ASPIR-81) 81 mg EC tablet Take 1 tablet by mouth once daily. No current facility-administered medications for this visit. Objective BP 122/64 (BP Site: Left Arm, BP Position: Sitting) Pulse 68 Temp 36.4 C (97.5 F) (Temporal Artery) Resp 12 Ht 177.8 cm (5' 10 ) Wt 86.2 kg (190 lb) BMI 27.26 kg/m Physical Exam Constitutional: Appearance: He is not ill-appearing. Cardiovascular: Rate and Rhythm: Normal rate and regular rhythm. Heart sounds: No murmur heard. No gallop. Pulmonary: Breath sounds: Normal breath sounds. Abdominal: Palpations: Abdomen is soft. Tenderness: There is no abdominal tenderness. Musculoskeletal: Right lower le+ Pitting Edema present. Left lower leg: No edema. Neurological: Mental Status: He is alert. Component Latest Ref Rng & Units 09/20/2021 Protein, Total 6.3 - 8.0 g/dL 7.1 Albumin 3.9 - 4.9 g/dL 4.3 Calcium 8.5 - 10.2 mg/dL 9.8 Bilirubin, Total 0.2 - 1.3 mg/dL 0.8 Alkaline Phosphatase 38 - 113 U/L 69 AST 14 - 40 U/L 18 ALT 10 - 54 U/L 20 Glucose 74 - 99 mg/dL 127 (H) BUN 9 - 24 mg/dL 22 Creatinine 0.73 - 1.22 mg/dL 1.32 (H) Sodium 136 - 144 mmol/L 139 Potassium 3.7 - 5.1 mmol/L 4.3 Chloride 97 - 105 mmol/L 103 CO2 22 - 30 mmol/L 25 Anion Gap 9 - 18 mmol/L 11 eGFR >=60 mL/min/1.73m 53 (L) WBC 3.70 - 11.00 k/uL 5.26 RBC 4.20 - 6.00 m/uL 5.83 Hemoglobin 13.0 - 17.0 g/dL 17.0 Hematocrit 39.0 - 51.0 % 50.8 MCV 80.0 - 100.0 fL 87.1 MCH 26.0 - 34.0 pg 29.2 MCHC 30.5 - 36.0 g/dL 33.5 RDW-CV 11.5 - 15.0 % 13.2 Platelet Count 150 - 400 k/uL 177 MPV 9.0 - 12.7 fL 9.8 Absolute nRBC <0.01 k/uL <0.01 Cholesterol, Total <200 mg/dL 213 (H) Triglyceride <150 mg/dL 115 HDL Cholesterol >39 mg/dL 37 (L) Non HDL Cholesterol <130 mg/dL 176 (H) Fasting Time hrs 12 VLDL Cholesterol <30 mg/dL 23 TC:HDL Ratio <5.10 5.76 (H) LDL Cholesterol <100 mg/dL 153 (H) LDL:HDL Ratio <2.54 4.14 (H) Hemoglobin A1C 4.3 - 5.6 % 6.0 (H) Estimated Average Glucose mg/dL 126 Assessment and Plan ASSESSMENT/PLAN: 1. Medicare annual wellness visit, subsequent - ICD9: V70.0, ICD10: Z00.00 (primary diagnosis) See other note. 2. Essential hypertension - ICD9: 401.9, ICD10: I10 - good control - TERAZOSIN 5 MG CAPSULE - AMLODIPINE 10 MG TABLET 3. Hyperlipidemia, unspecified hyperlipidemia type - ICD9: 272.4, ICD10: E78.5 - suboptimal control - Encouraged following a low carbohydrate, healthy oil intake diet. 4. Impaired fasting glucose - ICD9: 790.21, ICD10: R73.01 At risk for diabetes mellitus. See above. - HGB A1C 5. 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 Intracranial hemorrhage following injury (HCC) 05/27/2014 AIMEE (obstructive sleep apnea) intolerant to CPAP 07/20/2015 Other and unspecified hyperlipidemia 12/10/2004 Sebaceous cyst back SLEEP APNEA 01/04/2005 Nasal CPAP 7cm H2O Thrombocytopenia ([facility]) Tubular adenoma of colon 06/23/2016 Umbilical hernia without obstruction and without gangrene 03/25/2021 Unspecified essential hypertension 12/10/2004 Unspecified transient cerebral ischemia 12/10/2004 PAST SURGICAL HISTORY Procedure Laterality Date CHOLECYSTECTOMY W/EXPLOR 03/30/2015 adhesions, Heinecke-Mikulicz pyloroplasty [place] modification. 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 Medications reviewed: Yes FAMILY HISTORY Problem Relation Age of Onset Hypertension Mother Diabetes Mother Cancer Mother uterine and cervical mets to lung, other (macular degeneration) Mother other (unknown left home 1944) Father Heart Brother CABG, Diabetes Brother obese SOCIAL HISTORY: Social History Tobacco Use Smoking status: Former Smoker Packs/day: 0.50 Years: 20.00 Pack years: 10.00 Types: Cigarettes Quit date: 04/17/1968 Years since quittin.4 Smokeless tobacco: Never Used Vaping Use Vaping Use: Never used Substance Use Topics Alcohol use: No Drug use: No Juan is more or less sedentary occasionally exercising in the form of walking. He watches his diet for sodium, low fat and low cholesterol some of the time. List of current specialists seen: Dr. Rangel, police officer crime prevention. End of Live Planning discussed including patients advanced directive wishes: None made. I am willing to follow Juan's advanced directives. PHQ-2 / Depression screen He in the past two weeks denies having felt down, depressed, hopeless or with little interest or pleasure in doing things. Functional Ability/Safety Screen 1. Was the patient's timed Up and Go test unsteady or longer than 30 seconds? No 2. Does the patient need help with the phone, transportation, shopping,preparing meals, housework, laundry, medications or managing money? No 3. Does your home have rugs in the hallway, lack of grab bars in the bathroom, lack of handrails on the stairs or have poor lighting? No Hearing Evaluation: wears hearing aids PHYSICAL EXAM BP 136/70 (BP Site: Left Arm, BP Position: Sitting, BP Cuff Size: Large Adult) Pulse 68 Temp 36.4 C (97.5 F) (Temporal Artery) Resp 12 Ht 177.8 cm (5' 10 ) Wt 86.2 kg (190 lb) BMI 27.26 kg/m Alert and oriented X 3: YES Body mass index is 27.26 kg/m . Visual acuity: OD: 20/100 OS: 20/ 40 OU: 20/25 The Mini Cog(c): Word recall=3/3 + Clock drawing=2/2=5/5. (<3 is positive). ASSESSMENT/PLAN: 86 year old male The following prevention plan was discussed during the office visit and provided to the patient: - Vaccines recommended COVID-19 and Shingrix at pharmacy - Counseling for Exercise Cholo Friedman MD documented in this encounter [facility] documented as of this encounter (statuses as of 04/01/2022) [facility] History of Past illness Narrative* Problem Noted Date Resolved Date CKD (chronic kidney disease) stage 3, GFR 30-59 ml/min 06/30/2017 04/01/2022 Tubular adenoma of colon 06/23/2016 021 Overview: Recheck 06/21/2019 Thrombocytopenia 07/20/2015 11/08/2016 AIMEE (obstructive sleep apnea) intolerant to CPAP 07/20/2015 09/17/2020 Right inguinal hernia 07/10/2015 05/11/2016 Acute cholecystitis with chronic cholecystitis 1 05/25/2014 06/11/2015 Calculus of gallbladder with chronic cholecystitis without obstruction 02/11/2015 06/11/2015 Gallstone pancreatitis 01/15/2015 6 Open wound(s) (multiple) of unspecified site(s), without mention of complication 03/28/2013 12/09/2014 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: upper postlat side of scalp (well above R ear): R/O BCC so SCC vs Vascular Tumor 01/09/2013 12/09/2014 Santo angioma 01/09/2013 12/09/2014 Atypical nevus of back 01/09/2013 7 Scars 01/09/2013 12/09/2014 Personal history of other malignant neoplasm of skin 01/09/2013 11/08/2016 R/O BCC (basal cell carcinoma), face: L lower al ar side nose 08/08/2012 01/09/2013 Neoplasm of uncertain behavi or of skin: ?early Superficial BCC at L upper back Eulalio Ker 12/25/2011 01/09/2013 Irritated//Inflamed Seborrheic Keratosis 012 12/09/2014 Other Seborrheic Keratoses 05/19/201104/01 Actinic skin damage 05/19/2011 12/09/2014 Solar Lentigines 05/19/2011 12/09/2014 Benign neoplasm of scalp and skin of neck 200812/09/2014 Benign neoplasm of ear and external auditory can al 04/06/2009 06/11/2015 Benign neoplasm of skin of o ther and unspecified parts of face 04/06/2009 06/11/2015 Unspecified hypertrophic and atrophic condition of skin 03/20/2009 12/09/2014 Elevated prostate specific antigen (PSA) 005 09/17/2020 SLEEP APNEA 01/04/2005 12/09/2014 Overview: Nasal CPAP 7cm H2O. Not tolerated. 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 documented as of this encounter (statuses as of 07/03/2022) [facility] History of Past illness Narrative* Problem Noted Date Resolved Date CKD (chronic kidney disease) stage 3, GFR 30-59 ml/min 06/30/2017 04/01/2022 Tubular adenoma of colon 06/23/2016 021 Overview: Recheck 06/21/2019 Thrombocytopenia 07/20/2015 11/08/2016 AIMEE (obstructive sleep apnea) intolerant to CPAP 07/20/2015 09/17/2020 Right inguinal hernia 07/10/2015 05/11/2016 Acute cholecystitis with chronic cholecystitis 1 05/25/2014 06/11/2015 Calculus of gallbladder with chronic cholecystitis without obstruction 02/11/2015 06/11/2015 Gallstone pancreatitis 01/15/2015 6 Open wound(s) (multiple) of unspecified site(s), without mention of complication 03/28/2013 12/09/2014 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: upper postlat side of scalp (well above R ear): R/O BCC so SCC vs Vascular Tumor 01/09/2013 12/09/2014 Santo angioma 01/09/2013 12/09/2014 Atypical nevus of back 01/09/2013 7 Scars 01/09/2013 12/09/2014 Personal history of other malignant neoplasm of skin 01/09/2013 11/08/2016 R/O BCC (basal cell carcinoma), face: L lower al ar side nose 08/08/2012 01/09/2013 Neoplasm of uncertain behavi or of skin: ?early Superficial BCC at L upper back Eulalio Ker 12/25/2011 01/09/2013 Irritated//Inflamed Seborrheic Keratosis 012 12/09/2014 Other Seborrheic Keratoses 05/19/201104/01 Actinic skin damage 05/19/2011 12/09/2014 Solar Lentigines 05/19/2011 12/09/2014 Benign neoplasm of scalp and skin of neck 200812/09/2014 Benign neoplasm of ear and external auditory can al 04/06/2009 06/11/2015 Benign neoplasm of skin of o ther and unspecified parts of face 04/06/2009 06/11/2015 Unspecified hypertrophic and atrophic condition of skin 03/20/2009 12/09/2014 Elevated prostate specific antigen (PSA) 005 09/17/2020 SLEEP APNEA 01/04/2005 12/09/2014 Overview: Nasal CPAP 7cm H2O. Not tolerated. 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 documented as of this encounter (statuses as of 10/07/2022) [facility] History of Past illness Narrative* Problem Noted Date Diagnosed Date Resolved Date CKD (chronic kidney disease) stage 3, GFR 30-59 ml/min 06/30/2017 04/01/2022 Tubular adenoma of colon 06/23/201606/2020 Overview: Recheck 06/21/2019 Thrombocytopenia 07/20/2015 11/08/2016 AIMEE (obstructive sleep apnea ) intolerant to CPAP 07/20/2015 09/17/2020 Right inguinal hernia 07/10/20152016 Acute cholecystitis with chr onic cholecystitis 03/24/2015 06/11/2015 Calculus of gallbladder with chronic cholecystitis without obstruction 02/11/20152015 Gallstone pancreatitis 01/15/201506/11 Open wound(s) (multiple) of unspecified site(s), without mention of complication 03/28/2013 12/09/2014 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: upper postlat side of scalp (well above R ear): R/O BCC so SCC vs Vascular Tumor 01/09/2013 0 12/09/2014 Santo angioma 01/09/2013 12/09/2014 Atypical nevus of back 01/09/201305/11 Scars 01/09/2013 12/09/2014 Personal history of other ma lignant neoplasm of skin 01/09/2013 11/08/2016 R/O BCC (basal cell carcinom a), face: L lower alar side nose 08/08/2012 01/09/2013 Neoplasm of uncertain behavi or of skin: ?early Superficial BCC at L upper back Eulalio Ker 12/25/2011 01/09/2013 Irritated//Inflamed Seborrheic Keratosis 05/19/2011 12/09/2014 Other Seborrheic Keratoses 05/19/2011 1 06/02/2021 Actinic skin damage 05/19/2011 12/10/19 15 Solar Lentigines 05/19/2011 12/09/2014 Benign neoplasm of scalp and skin of neck 04/06/2009 12/09/2014 Benign neoplasm of ear and e xternal auditory canal 04/06/2009 06/11/2015 Benign neoplasm of skin of o ther and unspecified parts of face 04/06/2009 06/11/2015 Unspecified hypertrophic and atrophic condition of skin 03/20/2009 12/09/2014 Elevated prostate specific antigen (PSA) 03/18/2005 09/17/2020 SLEEP APNEA 01/04/2005 12/09/2014 Overview: Nasal CPAP 7cm H2O. Not tolerated. 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 documented as of this encounter (statuses as of 11/02/2022) [facility] History of Past illness Narrative* Problem Noted Date Diagnosed Date Resolved Date CKD (chronic kidney disease) stage 3, GFR 30-59 ml/min 06/30/2017 04/01/2022 Tubular adenoma of colon 06/23/201606/2020 Overview: Recheck 06/21/2019 Thrombocytopenia 07/20/2015 11/08/2016 AIMEE (obstructive sleep apnea ) intolerant to CPAP 07/20/2015 09/17/2020 Right inguinal hernia 07/10/20152016 Acute cholecystitis with chr onic cholecystitis 03/24/2015 06/11/2015 Calculus of gallbladder with chronic cholecystitis without obstruction 02/11/20152015 Gallstone pancreatitis 01/15/201506/11 Open wound(s) (multiple) of unspecified site(s), without mention of complication 03/28/2013 12/09/2014 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: upper postlat side of scalp (well above R ear): R/O BCC so SCC vs Vascular Tumor 01/09/2013 0 12/09/2014 Santo angioma 01/09/2013 12/09/2014 Atypical nevus of back 01/09/201305/11 Scars 01/09/2013 12/09/2014 Personal history of other ma lignant neoplasm of skin 01/09/2013 11/08/2016 R/O BCC (basal cell carcinom a), face: L lower alar side nose 08/08/2012 01/09/2013 Neoplasm of uncertain behavi or of skin: ?early Superficial BCC at L upper back Eulalio Ker 12/25/2011 01/09/2013 Irritated//Inflamed Seborrheic Keratosis 05/19/2011 12/09/2014 Other Seborrheic Keratoses 05/19/2011 1 06/02/2021 Actinic skin damage 05/19/2011 12/10/19 15 Solar Lentigines 05/19/2011 12/09/2014 Benign neoplasm of scalp and skin of neck 04/06/2009 12/09/2014 Benign neoplasm of ear and e xternal auditory canal 04/06/2009 06/11/2015 Benign neoplasm of skin of o ther and unspecified parts of face 04/06/2009 06/11/2015 Unspecified hypertrophic and atrophic condition of skin 03/20/2009 12/09/2014 Elevated prostate specific antigen (PSA) 03/18/2005 09/17/2020 SLEEP APNEA 01/04/2005 12/09/2014 Overview: Nasal CPAP 7cm H2O. Not tolerated. 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 02/11/20152015 Gallstone pancreatitis 01/15/201506/11 Open wound(s) (multiple) of unspecified site(s), without mention of complication 03/28/2013 12/09/2014 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: upper postlat side of scalp (well above R ear): R/O BCC so SCC vs Vascular Tumor 01/09/2013 0 12/09/2014 Santo angioma 01/09/2013 12/09/2014 Atypical nevus of back 01/09/201305/11 Scars 01/09/2013 12/09/2014 Personal history of other ma lignant neoplasm of skin 01/09/2013 11/08/2016 R/O BCC (basal cell carcinom a), face: L lower alar side nose 08/08/2012 01/09/2013 Neoplasm of uncertain behavi or of skin: ?early Superficial BCC at L upper back Eulalio Ker 12/25/2011 01/09/2013 Irritated//Inflamed Seborrheic Keratosis 05/19/2011 12/09/2014 Other Seborrheic Keratoses 05/19/2011 1 06/02/2021 Actinic skin damage 05/19/2011 12/10/19 15 Solar Lentigines 05/19/2011 12/09/2014 Benign neoplasm of scalp and skin of neck 04/06/2009 12/09/2014 Benign neoplasm of ear and e xternal auditory canal 04/06/2009 06/11/2015 Benign neoplasm of skin of o ther and unspecified parts of face 04/06/2009 06/11/2015 Unspecified hypertrophic and atrophic condition of skin 03/20/2009 12/09/2014 Elevated prostate specific antigen (PSA) 03/18/2005 09/17/2020 SLEEP APNEA 01/04/2005 12/09/2014 Overview: Nasal CPAP 7cm H2O. Not tolerated. 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 02/11/20152015 Gallstone pancreatitis 01/15/201506/11 Open wound(s) (multiple) of unspecified site(s), without mention of complication 03/28/2013 12/09/2014 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: upper postlat side of scalp (well above R ear): R/O BCC so SCC vs Vascular Tumor 01/09/2013 0 12/09/2014 Santo angioma 01/09/2013 12/09/2014 Atypical nevus of back 01/09/201305/11 Scars 01/09/2013 12/09/2014 Personal history of other ma lignant neoplasm of skin 01/09/2013 11/08/2016 R/O BCC (basal cell carcinom a), face: L lower alar side nose 08/08/2012 01/09/2013 Neoplasm of uncertain behavi or of skin: ?early Superficial BCC at L upper back Eulalio Ker 12/25/2011 01/09/2013 Irritated//Inflamed Seborrheic Keratosis 05/19/2011 12/09/2014 Other Seborrheic Keratoses 05/19/2011 1 06/02/2021 Actinic skin damage 05/19/2011 12/10/19 15 Solar Lentigines 05/19/2011 12/09/2014 Benign neoplasm of scalp and skin of neck 04/06/2009 12/09/2014 Benign neoplasm of ear and e xternal auditory canal 04/06/2009 06/11/2015 Benign neoplasm of skin of o ther and unspecified parts of face 04/06/2009 06/11/2015 Unspecified hypertrophic and atrophic condition of skin 03/20/2009 12/09/2014 Elevated prostate specific antigen (PSA) 03/18/2005 09/17/2020 SLEEP APNEA 01/04/2005 12/09/2014 Overview: Nasal CPAP 7cm H2O. Not tolerated. 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 documented as of this encounter (statuses as of 12/28/2022) [facility] History of Past illness Narrative* Problem Noted Date Diagnosed Date Resolved Date CKD (chronic kidney disease) stage 3, GFR 30-59 ml/min 06/30/2017 04/01/2022 Tubular adenoma of colon 06/23/201606/2020 Overview: Recheck 06/21/2019 Thrombocytopenia 07/20/2015 11/08/2016 AIMEE (obstructive sleep apnea ) intolerant to CPAP 07/20/2015 09/17/2020 Right inguinal hernia 07/10/20152016 Acute cholecystitis with chr onic cholecystitis 03/24/2015 06/11/2015 Calculus of gallbladder with chronic cholecystitis without obstruction 02/11/20152015 Gallstone pancreatitis 01/15/201506/11 Open wound(s) (multiple) of unspecified site(s), without mention of complication 03/28/2013 12/09/2014 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: upper postlat side of scalp (well above R ear): R/O BCC so SCC vs Vascular Tumor 01/09/2013 0 12/09/2014 Santo angioma 01/09/2013 12/09/2014 Atypical nevus of back 01/09/201305/11 Scars 01/09/2013 12/09/2014 Personal history of other ma lignant neoplasm of skin 01/09/2013 11/08/2016 R/O BCC (basal cell carcinom a), face: L lower alar side nose 08/08/2012 01/09/2013 Neoplasm of uncertain behavi or of skin: ?early Superficial BCC at L upper back Eulalio Ker 12/25/2011 01/09/2013 Irritated//Inflamed Seborrheic Keratosis 05/19/2011 12/09/2014 Other Seborrheic Keratoses 05/19/2011 1 06/02/2021 Actinic skin damage 05/19/2011 12/10/19 15 Solar Lentigines 05/19/2011 12/09/2014 Benign neoplasm of scalp and skin of neck 04/06/2009 12/09/2014 Benign neoplasm of ear and e xternal auditory canal 04/06/2009 06/11/2015 Benign neoplasm of skin of o ther and unspecified parts of face 04/06/2009 06/11/2015 Unspecified hypertrophic and atrophic condition of skin 03/20/2009 12/09/2014 Elevated prostate specific antigen (PSA) 03/18/2005 09/17/2020 SLEEP APNEA 01/04/2005 12/09/2014 Overview: Nasal CPAP 7cm H2O. Not tolerated. 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 documented as of this encounter (statuses as of 12/28/2022) [facility] History of Past illness Narrative* Problem Noted Date Diagnosed Date Resolved Date CKD (chronic kidney disease) stage 3, GFR 30-59 ml/min 06/30/2017 04/01/2022 Tubular adenoma of colon 06/23/201606/2020 Overview: Recheck 06/21/2019 Thrombocytopenia 07/20/2015 11/08/2016 AIMEE (obstructive sleep apnea ) intolerant to CPAP 07/20/2015 09/17/2020 Right inguinal hernia 07/10/20152016 Acute cholecystitis with chr onic cholecystitis 03/24/2015 06/11/2015 Calculus of gallbladder with chronic cholecystitis without obstruction 02/11/20152015 Gallstone pancreatitis 01/15/201506/11 Open wound(s) (multiple) of unspecified site(s), without mention of complication 03/28/2013 12/09/2014 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: upper postlat side of scalp (well above R ear): R/O BCC so SCC vs Vascular Tumor 01/09/2013 0 12/09/2014 Santo angioma 01/09/2013 12/09/2014 Atypical nevus of back 01/09/201305/11 Scars 01/09/2013 12/09/2014 Personal history of other ma lignant neoplasm of skin 01/09/2013 11/08/2016 R/O BCC (basal cell carcinom a), face: L lower alar side nose 08/08/2012 01/09/2013 Neoplasm of uncertain behavi or of skin: ?early Superficial BCC at L upper back Eulalio Ker 12/25/2011 01/09/2013 Irritated//Inflamed Seborrheic Keratosis 05/19/2011 12/09/2014 Other Seborrheic Keratoses 05/19/2011 1 06/02/2021 Actinic skin damage 05/19/2011 12/10/19 15 Solar Lentigines 05/19/2011 12/09/2014 Benign neoplasm of scalp and skin of neck 04/06/2009 12/09/2014 Benign neoplasm of ear and e xternal auditory canal 04/06/2009 06/11/2015 Benign neoplasm of skin of o ther and unspecified parts of face 04/06/2009 06/11/2015 Unspecified hypertrophic and atrophic condition of skin 03/20/2009 12/09/2014 Elevated prostate specific antigen (PSA) 03/18/2005 09/17/2020 SLEEP APNEA 01/04/2005 12/09/2014 Overview: Nasal CPAP 7cm H2O. Not tolerated. 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 documented as of this encounter (statuses as of 01/06/2023) [facility] History of Past illness Narrative* Problem Noted Date Diagnosed Date Resolved Date CKD (chronic kidney disease) stage 3, GFR 30-59 ml/min 06/30/2017 04/01/2022 Tubular adenoma of colon 06/23/201606/2020 Overview: Recheck 06/21/2019 Thrombocytopenia 07/20/2015 11/08/2016 AIMEE (obstructive sleep apnea ) intolerant to CPAP 07/20/2015 09/17/2020 Right inguinal hernia 07/10/20152016 Acute cholecystitis with chr onic cholecystitis 03/24/2015 06/11/2015 Calculus of gallbladder with chronic cholecystitis without obstruction 02/11/20152015 Gallstone pancreatitis 01/15/201506/11 Open wound(s) (multiple) of unspecified site(s), without mention of complication 03/28/2013 12/09/2014 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: upper postlat side of scalp (well above R ear): R/O BCC so SCC vs Vascular Tumor 01/09/2013 0 12/09/2014 Santo angioma 01/09/2013 12/09/2014 Atypical nevus of back 01/09/201305/11 Scars 01/09/2013 12/09/2014 Personal history of other ma lignant neoplasm of skin 01/09/2013 11/08/2016 R/O BCC (basal cell carcinom a), face: L lower alar side nose 08/08/2012 01/09/2013 Neoplasm of uncertain behavi or of skin: ?early Superficial BCC at L upper back Eulalio Ker 12/25/2011 01/09/2013 Irritated//Inflamed Seborrheic Keratosis 05/19/2011 12/09/2014 Other Seborrheic Keratoses 05/19/2011 1 06/02/2021 Actinic skin damage 05/19/2011 12/10/19 15 Solar Lentigines 05/19/2011 12/09/2014 Benign neoplasm of scalp and skin of neck 04/06/2009 12/09/2014 Benign neoplasm of ear and e xternal auditory canal 04/06/2009 06/11/2015 Benign neoplasm of skin of o ther and unspecified parts of face 04/06/2009 06/11/2015 Unspecified hypertrophic and atrophic condition of skin 03/20/2009 12/09/2014 Elevated prostate specific antigen (PSA) 03/18/2005 09/17/2020 SLEEP APNEA 01/04/2005 12/09/2014 Overview: Nasal CPAP 7cm H2O. Not tolerated. 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 documented as of this encounter (statuses as of 01/19/2023) [facility] History of Past illness Narrative* Problem Noted Date Diagnosed Date Resolved Date CKD (chronic kidney disease) stage 3, GFR 30-59 ml/min 06/30/2017 04/01/2022 Tubular adenoma of colon 06/23/201606/2020 Overview: Recheck 06/21/2019 Thrombocytopenia 07/20/2015 11/08/2016 AIMEE (obstructive sleep apnea ) intolerant to CPAP 07/20/2015 09/17/2020 Right inguinal hernia 07/10/20152016 Acute cholecystitis with chr onic cholecystitis 03/24/2015 06/11/2015 Calculus of gallbladder with chronic cholecystitis without obstruction 02/11/20152015 Gallstone pancreatitis 01/15/201506/11 Open wound(s) (multiple) of unspecified site(s), without mention of complication 03/28/2013 12/09/2014 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: upper postlat side of scalp (well above R ear): R/O BCC so SCC vs Vascular Tumor 01/09/2013 0 12/09/2014 Santo angioma 01/09/2013 12/09/2014 Atypical nevus of back 01/09/201305/11 Scars 01/09/2013 12/09/2014 Personal history of other ma lignant neoplasm of skin 01/09/2013 11/08/2016 R/O BCC (basal cell carcinom a), face: L lower alar side nose 08/08/2012 01/09/2013 Neoplasm of uncertain behavi or of skin: ?early Superficial BCC at L upper back Eulalio Ker 12/25/2011 01/09/2013 Irritated//Inflamed Seborrheic Keratosis 05/19/2011 12/09/2014 Other Seborrheic Keratoses 05/19/2011 1 06/02/2021 Actinic skin damage 05/19/2011 12/10/19 15 Solar Lentigines 05/19/2011 12/09/2014 Benign neoplasm of scalp and skin of neck 04/06/2009 12/09/2014 Benign neoplasm of ear and e xternal auditory canal 04/06/2009 06/11/2015 Benign neoplasm of skin of o ther and unspecified parts of face 04/06/2009 06/11/2015 Unspecified hypertrophic and atrophic condition of skin 03/20/2009 12/09/2014 Elevated prostate specific antigen (PSA) 03/18/2005 09/17/2020 SLEEP APNEA 01/04/2005 12/09/2014 Overview: Nasal CPAP 7cm H2O. Not tolerated. 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 documented as of this encounter (statuses as of 01/20/2023) [facility] History of Past illness Narrative* Problem Noted Date Diagnosed Date Resolved Date CKD (chronic kidney disease) stage 3, GFR 30-59 ml/min 06/30/2017 04/01/2022 Tubular adenoma of colon 06/23/201606/2020 Overview: Recheck 06/21/2019 Thrombocytopenia 07/20/2015 11/08/2016 AIMEE (obstructive sleep apnea ) intolerant to CPAP 07/20/2015 09/17/2020 Right inguinal hernia 07/10/20152016 Acute cholecystitis with chr onic cholecystitis 03/24/2015 06/11/2015 Calculus of gallbladder with chronic cholecystitis without obstruction 02/11/20152015 Gallstone pancreatitis 01/15/201506/11 Open wound(s) (multiple) of unspecified site(s), without mention of complication 03/28/2013 12/09/2014 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: upper postlat side of scalp (well above R ear): R/O BCC so SCC vs Vascular Tumor 01/09/2013 0 12/09/2014 Santo angioma 01/09/2013 12/09/2014 Atypical nevus of back 01/09/201305/11 Scars 01/09/2013 12/09/2014 Personal history of other ma lignant neoplasm of skin 01/09/2013 11/08/2016 R/O BCC (basal cell carcinom a), face: L lower alar side nose 08/08/2012 01/09/2013 Neoplasm of uncertain behavi or of skin: ?early Superficial BCC at L upper back Eulalio Ker 12/25/2011 01/09/2013 Irritated//Inflamed Seborrheic Keratosis 05/19/2011 12/09/2014 Other Seborrheic Keratoses 05/19/2011 1 06/02/2021 Actinic skin damage 05/19/2011 12/10/19 15 Solar Lentigines 05/19/2011 12/09/2014 Benign neoplasm of scalp and skin of neck 04/06/2009 12/09/2014 Benign neoplasm of ear and e xternal auditory canal 04/06/2009 06/11/2015 Benign neoplasm of skin of o ther and unspecified parts of face 04/06/2009 06/11/2015 Unspecified hypertrophic and atrophic condition of skin 03/20/2009 12/09/2014 Elevated prostate specific antigen (PSA) 03/18/2005 09/17/2020 SLEEP APNEA 01/04/2005 12/09/2014 Overview: Nasal CPAP 7cm H2O. Not tolerated. 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 documented as of this encounter (statuses as of 01/24/2023) [facility] History of Past illness Narrative* Problem Noted Date Diagnosed Date Resolved Date CKD (chronic kidney disease) stage 3, GFR 30-59 ml/min 06/30/2017 04/01/2022 Tubular adenoma of colon 06/23/201606/2020 Overview: Recheck 06/21/2019 Thrombocytopenia 07/20/2015 11/08/2016 AIMEE (obstructive sleep apnea ) intolerant to CPAP 07/20/2015 09/17/2020 Right inguinal hernia 07/10/20152016 Acute cholecystitis with chr onic cholecystitis 03/24/2015 06/11/2015 Calculus of gallbladder with chronic cholecystitis without obstruction 02/11/20152015 Gallstone pancreatitis 01/15/201506/11 Open wound(s) (multiple) of unspecified site(s), without mention of complication 03/28/2013 12/09/2014 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: upper postlat side of scalp (well above R ear): R/O BCC so SCC vs Vascular Tumor 01/09/2013 0 12/09/2014 Santo angioma 01/09/2013 12/09/2014 Atypical nevus of back 01/09/201305/11 Scars 01/09/2013 12/09/2014 Personal history of other ma lignant neoplasm of skin 01/09/2013 11/08/2016 R/O BCC (basal cell carcinom a), face: L lower alar side nose 08/08/2012 01/09/2013 Neoplasm of uncertain behavi or of skin: ?early Superficial BCC at L upper back Eulalio Ker 12/25/2011 01/09/2013 Irritated//Inflamed Seborrheic Keratosis 05/19/2011 12/09/2014 Other Seborrheic Keratoses 05/19/2011 1 06/02/2021 Actinic skin damage 05/19/2011 12/10/19 15 Solar Lentigines 05/19/2011 12/09/2014 Benign neoplasm of scalp and skin of neck 04/06/2009 12/09/2014 Benign neoplasm of ear and e xternal auditory canal 04/06/2009 06/11/2015 Benign neoplasm of skin of o ther and unspecified parts of face 04/06/2009 06/11/2015 Unspecified hypertrophic and atrophic condition of skin 03/20/2009 12/09/2014 Elevated prostate specific antigen (PSA) 03/18/2005 09/17/2020 SLEEP APNEA 01/04/2005 12/09/2014 Overview: Nasal CPAP 7cm H2O. Not tolerated. 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 documented as of this encounter (statuses as of 01/24/2023) [facility]03[facility] History of Past illness Narrative* Problem Noted Date Diagnosed Date Resolved Date CKD (chronic kidney disease) stage 3, GFR 30-59 ml/min 06/30/2017 04/01/2022 Tubular adenoma of colon 06/23/201606/2020 Overview: Recheck 06/21/2019 Thrombocytopenia 07/20/2015 11/08/2016 AIMEE (obstructive sleep apnea ) intolerant to CPAP 07/20/2015 09/17/2020 Right inguinal hernia 07/10/20152016 Acute cholecystitis with chr onic cholecystitis 03/24/2015 06/11/2015 Calculus of gallbladder with chronic cholecystitis without obstruction 02/11/20152015 Gallstone pancreatitis 01/15/201506/11 Open wound(s) (multiple) of unspecified site(s), without mention of complication 03/28/2013 12/09/2014 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: upper postlat side of scalp (well above R ear): R/O BCC so SCC vs Vascular Tumor 01/09/2013 0 12/09/2014 Santo angioma 01/09/2013 12/09/2014 Atypical nevus of back 01/09/201305/11 Scars 01/09/2013 12/09/2014 Personal history of other ma lignant neoplasm of skin 01/09/2013 11/08/2016 R/O BCC (basal cell carcinom a), face: L lower alar side nose 08/08/2012 01/09/2013 Neoplasm of uncertain behavi or of skin: ?early Superficial BCC at L upper back Eulalio Ker 12/25/2011 01/09/2013 Irritated//Inflamed Seborrheic Keratosis 05/19/2011 12/09/2014 Other Seborrheic Keratoses 05/19/2011 1 06/02/2021 Actinic skin damage 05/19/2011 12/10/19 15 Solar Lentigines 05/19/2011 12/09/2014 Benign neoplasm of scalp and skin of neck 04/06/2009 12/09/2014 Benign neoplasm of ear and e xternal auditory canal 04/06/2009 06/11/2015 Benign neoplasm of skin of o ther and unspecified parts of face 04/06/2009 06/11/2015 Unspecified hypertrophic and atrophic condition of skin 03/20/2009 12/09/2014 Elevated prostate specific antigen (PSA) 03/18/2005 09/17/2020 SLEEP APNEA 01/04/2005 12/09/2014 Overview: Nasal CPAP 7cm H2O. Not tolerated. 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 documented as of this encounter (statuses as of 01/25/2023) [facility] History of Past illness Narrative* Problem Noted Date Diagnosed Date Resolved Date CKD (chronic kidney disease) stage 3, GFR 30-59 ml/min 06/30/2017 04/01/2022 Tubular adenoma of colon 06/23/201606/2020 Overview: Recheck 06/21/2019 Thrombocytopenia 07/20/2015 11/08/2016 AIMEE (obstructive sleep apnea ) intolerant to CPAP 07/20/2015 09/17/2020 Right inguinal hernia 07/10/20152016 Acute cholecystitis with chr onic cholecystitis 03/24/2015 06/11/2015 Calculus of gallbladder with chronic cholecystitis without obstruction 02/11/20152015 Gallstone pancreatitis 01/15/201506/11 Open wound(s) (multiple) of unspecified site(s), without mention of complication 03/28/2013 12/09/2014 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: upper postlat side of scalp (well above R ear): R/O BCC so SCC vs Vascular Tumor 01/09/2013 0 12/09/2014 Santo angioma 01/09/2013 12/09/2014 Atypical nevus of back 01/09/201305/11 Scars 01/09/2013 12/09/2014 Personal history of other ma lignant neoplasm of skin 01/09/2013 11/08/2016 R/O BCC (basal cell carcinom a), face: L lower alar side nose 08/08/2012 01/09/2013 Neoplasm of uncertain behavi or of skin: ?early Superficial BCC at L upper back Eulalio Ker 12/25/2011 01/09/2013 Irritated//Inflamed Seborrheic Keratosis 05/19/2011 12/09/2014 Other Seborrheic Keratoses 05/19/2011 1 06/02/2021 Actinic skin damage 05/19/2011 12/10/19 15 Solar Lentigines 05/19/2011 12/09/2014 Benign neoplasm of scalp and skin of neck 04/06/2009 12/09/2014 Benign neoplasm of ear and e xternal auditory canal 04/06/2009 06/11/2015 Benign neoplasm of skin of o ther and unspecified parts of face 04/06/2009 06/11/2015 Unspecified hypertrophic and atrophic condition of skin 03/20/2009 12/09/2014 Elevated prostate specific antigen (PSA) 03/18/2005 09/17/2020 SLEEP APNEA 01/04/2005 12/09/2014 Overview: Nasal CPAP 7cm H2O. Not tolerated. 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 02/11/20152015 Gallstone pancreatitis 01/15/201506/11 Open wound(s) (multiple) of unspecified site(s), without mention of complication 03/28/2013 12/09/2014 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: upper postlat side of scalp (well above R ear): R/O BCC so SCC vs Vascular Tumor 01/09/2013 0 12/09/2014 Santo angioma 01/09/2013 12/09/2014 Atypical nevus of back 01/09/201305/11 Scars 01/09/2013 12/09/2014 Personal history of other ma lignant neoplasm of skin 01/09/2013 11/08/2016 R/O BCC (basal cell carcinom a), face: L lower alar side nose 08/08/2012 01/09/2013 Neoplasm of uncertain behavi or of skin: ?early Superficial BCC at L upper back Eulalio Ker 12/25/2011 01/09/2013 Irritated//Inflamed Seborrheic Keratosis 05/19/2011 12/09/2014 Other Seborrheic Keratoses 05/19/2011 1 06/02/2021 Actinic skin damage 05/19/2011 12/10/19 15 Solar Lentigines 05/19/2011 12/09/2014 Benign neoplasm of scalp and skin of neck 04/06/2009 12/09/2014 Benign neoplasm of ear and e xternal auditory canal 04/06/2009 06/11/2015 Benign neoplasm of skin of o ther and unspecified parts of face 04/06/2009 06/11/2015 Unspecified hypertrophic and atrophic condition of skin 03/20/2009 12/09/2014 Elevated prostate specific antigen (PSA) 03/18/2005 09/17/2020 SLEEP APNEA 01/04/2005 12/09/2014 Overview: Nasal CPAP 7cm H2O. Not tolerated. 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 02/11/20152015 Gallstone pancreatitis 01/15/201506/11 Open wound(s) (multiple) of unspecified site(s), without mention of complication 03/28/2013 12/09/2014 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: upper postlat side of scalp (well above R ear): R/O BCC so SCC vs Vascular Tumor 01/09/2013 0 12/09/2014 Santo angioma 01/09/2013 12/09/2014 Atypical nevus of back 01/09/201305/11 Scars 01/09/2013 12/09/2014 Personal history of other ma lignant neoplasm of skin 01/09/2013 11/08/2016 R/O BCC (basal cell carcinom a), face: L lower alar side nose 08/08/2012 01/09/2013 Neoplasm of uncertain behavi or of skin: ?early Superficial BCC at L upper back Eulalio Ker 12/25/2011 01/09/2013 Irritated//Inflamed Seborrheic Keratosis 05/19/2011 12/09/2014 Other Seborrheic Keratoses 05/19/2011 1 06/02/2021 Actinic skin damage 05/19/2011 12/10/19 15 Solar Lentigines 05/19/2011 12/09/2014 Benign neoplasm of scalp and skin of neck 04/06/2009 12/09/2014 Benign neoplasm of ear and e xternal auditory canal 04/06/2009 06/11/2015 Benign neoplasm of skin of o ther and unspecified parts of face 04/06/2009 06/11/2015 Unspecified hypertrophic and atrophic condition of skin 03/20/2009 12/09/2014 Elevated prostate specific antigen (PSA) 03/18/2005 09/17/2020 SLEEP APNEA 01/04/2005 12/09/2014 Overview: Nasal CPAP 7cm H2O. Not tolerated. 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 documented as of this encounter (statuses as of 01/31/2023) [facility] History of Past illness Narrative* Problem Noted Date Diagnosed Date Resolved Date CKD (chronic kidney disease) stage 3, GFR 30-59 ml/min 06/30/2017 04/01/2022 Tubular adenoma of colon 06/23/201606/2020 Overview: Recheck 06/21/2019 Thrombocytopenia 07/20/2015 11/08/2016 AIMEE (obstructive sleep apnea ) intolerant to CPAP 07/20/2015 09/17/2020 Right inguinal hernia 07/10/20152016 Acute cholecystitis with chr onic cholecystitis 03/24/2015 06/11/2015 Calculus of gallbladder with chronic cholecystitis without obstruction 02/11/20152015 Gallstone pancreatitis 01/15/201506/11 Open wound(s) (multiple) of unspecified site(s), without mention of complication 03/28/2013 12/09/2014 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: upper postlat side of scalp (well above R ear): R/O BCC so SCC vs Vascular Tumor 01/09/2013 0 12/09/2014 Asnto angioma 01/09/2013 12/09/2014 Atypical nevus of back 01/09/201305/11 Scars 01/09/2013 12/09/2014 Personal history of other ma lignant neoplasm of skin 01/09/2013 11/08/2016 R/O BCC (basal cell carcinom a), face: L lower alar side nose 08/08/2012 01/09/2013 Neoplasm of uncertain behavi or of skin: ?early Superficial BCC at L upper back Eulalio Ker 12/25/2011 01/09/2013 Irritated//Inflamed Seborrheic Keratosis 05/19/2011 12/09/2014 Other Seborrheic Keratoses 05/19/2011 1 06/02/2021 Actinic skin damage 05/19/2011 12/10/19 15 Solar Lentigines 05/19/2011 12/09/2014 Benign neoplasm of scalp and skin of neck 04/06/2009 12/09/2014 Benign neoplasm of ear and e xternal auditory canal 04/06/2009 06/11/2015 Benign neoplasm of skin of o ther and unspecified parts of face 04/06/2009 06/11/2015 Unspecified hypertrophic and atrophic condition of skin 03/20/2009 12/09/2014 Elevated prostate specific antigen (PSA) 03/18/2005 09/17/2020 SLEEP APNEA 01/04/2005 12/09/2014 Overview: Nasal CPAP 7cm H2O. Not tolerated. 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 02/11/20152015 Gallstone pancreatitis 01/15/201506/11 Open wound(s) (multiple) of unspecified site(s), without mention of complication 03/28/2013 12/09/2014 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: upper postlat side of scalp (well above R ear): R/O BCC so SCC vs Vascular Tumor 01/09/2013 0 12/09/2014 Santo angioma 01/09/2013 12/09/2014 Atypical nevus of back 01/09/201305/11 Scars 01/09/2013 12/09/2014 Personal history of other ma lignant neoplasm of skin 01/09/2013 11/08/2016 R/O BCC (basal cell carcinom a), face: L lower alar side nose 08/08/2012 01/09/2013 Neoplasm of uncertain behavi or of skin: ?early Superficial BCC at L upper back Eulalio Ker 12/25/2011 01/09/2013 Irritated//Inflamed Seborrheic Keratosis 05/19/2011 12/09/2014 Other Seborrheic Keratoses 05/19/2011 1 06/02/2021 Actinic skin damage 05/19/2011 12/10/19 15 Solar Lentigines 05/19/2011 12/09/2014 Benign neoplasm of scalp and skin of neck 04/06/2009 12/09/2014 Benign neoplasm of ear and e xternal auditory canal 04/06/2009 06/11/2015 Benign neoplasm of skin of o ther and unspecified parts of face 04/06/2009 06/11/2015 Unspecified hypertrophic and atrophic condition of skin 03/20/2009 12/09/2014 Elevated prostate specific antigen (PSA) 03/18/2005 09/17/2020 SLEEP APNEA 01/04/2005 12/09/2014 Overview: Nasal CPAP 7cm H2O. Not tolerated. 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 documented as of this encounter (statuses as of 03/13/2023) [facility] History of Past illness Narrative* Problem Noted Date Diagnosed Date Resolved Date CKD (chronic kidney disease) stage 3, GFR 30-59 ml/min 06/30/2017 04/01/2022 Tubular adenoma of colon 06/23/201606/2020 Overview: Recheck 06/21/2019 Thrombocytopenia 07/20/2015 11/08/2016 AIMEE (obstructive sleep apnea ) intolerant to CPAP 07/20/2015 09/17/2020 Right inguinal hernia 07/10/20152016 Acute cholecystitis with chr onic cholecystitis 03/24/2015 06/11/2015 Calculus of gallbladder with chronic cholecystitis without obstruction 02/11/20152015 Gallstone pancreatitis 01/15/201506/11 Open wound(s) (multiple) of unspecified site(s), without mention of complication 03/28/2013 12/09/2014 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: upper postlat side of scalp (well above R ear): R/O BCC so SCC vs Vascular Tumor 01/09/2013 0 12/09/2014 Santo angioma 01/09/2013 12/09/2014 Atypical nevus of back 01/09/201305/11 Scars 01/09/2013 12/09/2014 Personal history of other ma lignant neoplasm of skin 01/09/2013 11/08/2016 R/O BCC (basal cell carcinom a), face: L lower alar side nose 08/08/2012 01/09/2013 Neoplasm of uncertain behavi or of skin: ?early Superficial BCC at L upper back Eulalio Ker 12/25/2011 01/09/2013 Irritated//Inflamed Seborrheic Keratosis 05/19/2011 12/09/2014 Other Seborrheic Keratoses 05/19/2011 1 06/02/2021 Actinic skin damage 05/19/2011 12/10/19 15 Solar Lentigines 05/19/2011 12/09/2014 Benign neoplasm of scalp and skin of neck 04/06/2009 12/09/2014 Benign neoplasm of ear and e xternal auditory canal 04/06/2009 06/11/2015 Benign neoplasm of skin of o ther and unspecified parts of face 04/06/2009 06/11/2015 Unspecified hypertrophic and atrophic condition of skin 03/20/2009 12/09/2014 Elevated prostate specific antigen (PSA) 03/18/2005 09/17/2020 SLEEP APNEA 01/04/2005 12/09/2014 Overview: Nasal CPAP 7cm H2O. Not tolerated. 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 documented as of this encounter (statuses as of 03/14/2023) [facility] History of Past illness Narrative* Problem Noted Date Diagnosed Date Resolved Date CKD (chronic kidney disease) stage 3, GFR 30-59 ml/min 06/30/2017 04/01/2022 Tubular adenoma of colon 06/23/201606/2020 Overview: Recheck 06/21/2019 Thrombocytopenia 07/20/2015 11/08/2016 AIMEE (obstructive sleep apnea ) intolerant to CPAP 07/20/2015 09/17/2020 Right inguinal hernia 07/10/20152016 Acute cholecystitis with chr onic cholecystitis 03/24/2015 06/11/2015 Calculus of gallbladder with chronic cholecystitis without obstruction 02/11/20152015 Gallstone pancreatitis 01/15/201506/11 Open wound(s) (multiple) of unspecified site(s), without mention of complication 03/28/2013 12/09/2014 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: upper postlat side of scalp (well above R ear): R/O BCC so SCC vs Vascular Tumor 01/09/2013 0 12/09/2014 Santo angioma 01/09/2013 12/09/2014 Atypical nevus of back 01/09/201305/11 Scars 01/09/2013 12/09/2014 Personal history of other ma lignant neoplasm of skin 01/09/2013 11/08/2016 R/O BCC (basal cell carcinom a), face: L lower alar side nose 08/08/2012 01/09/2013 Neoplasm of uncertain behavi or of skin: ?early Superficial BCC at L upper back Eulalio Ker 12/25/2011 01/09/2013 Irritated//Inflamed Seborrheic Keratosis 05/19/2011 12/09/2014 Other Seborrheic Keratoses 05/19/2011 1 06/02/2021 Actinic skin damage 05/19/2011 12/10/19 15 Solar Lentigines 05/19/2011 12/09/2014 Benign neoplasm of scalp and skin of neck 04/06/2009 12/09/2014 Benign neoplasm of ear and e xternal auditory canal 04/06/2009 06/11/2015 Benign neoplasm of skin of o ther and unspecified parts of face 04/06/2009 06/11/2015 Unspecified hypertrophic and atrophic condition of skin 03/20/2009 12/09/2014 Elevated prostate specific antigen (PSA) 03/18/2005 09/17/2020 SLEEP APNEA 01/04/2005 12/09/2014 Overview: Nasal CPAP 7cm H2O. Not tolerated. 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 documented as of this encounter (statuses as of 03/23/2023) [facility] History of Past illness Narrative* Problem Noted Date Diagnosed Date Resolved Date CKD (chronic kidney disease) stage 3, GFR 30-59 ml/min 06/30/2017 04/01/2022 Tubular adenoma of colon 06/23/201606/2020 Overview: Recheck 06/21/2019 Thrombocytopenia 07/20/2015 11/08/2016 AIMEE (obstructive sleep apnea ) intolerant to CPAP 07/20/2015 09/17/2020 Right inguinal hernia 07/10/20152016 Acute cholecystitis with chr onic cholecystitis 03/24/2015 06/11/2015 Calculus of gallbladder with chronic cholecystitis without obstruction 02/11/20152015 Gallstone pancreatitis 01/15/201506/11 Open wound(s) (multiple) of unspecified site(s), without mention of complication 03/28/2013 12/09/2014 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: upper postlat side of scalp (well above R ear): R/O BCC so SCC vs Vascular Tumor 01/09/2013 0 12/09/2014 Santo angioma 01/09/2013 12/09/2014 Atypical nevus of back 01/09/201305/11 Scars 01/09/2013 12/09/2014 Personal history of other ma lignant neoplasm of skin 01/09/2013 11/08/2016 R/O BCC (basal cell carcinom a), face: L lower alar side nose 08/08/2012 01/09/2013 Neoplasm of uncertain behavi or of skin: ?early Superficial BCC at L upper back Eulalio Ker 12/25/2011 01/09/2013 Irritated//Inflamed Seborrheic Keratosis 05/19/2011 12/09/2014 Other Seborrheic Keratoses 05/19/2011 1 06/02/2021 Actinic skin damage 05/19/2011 12/10/19 15 Solar Lentigines 05/19/2011 12/09/2014 Benign neoplasm of scalp and skin of neck 04/06/2009 12/09/2014 Benign neoplasm of ear and e xternal auditory canal 04/06/2009 06/11/2015 Benign neoplasm of skin of o ther and unspecified parts of face 04/06/2009 06/11/2015 Unspecified hypertrophic and atrophic condition of skin 03/20/2009 12/09/2014 Elevated prostate specific antigen (PSA) 03/18/2005 09/17/2020 SLEEP APNEA 01/04/2005 12/09/2014 Overview: Nasal CPAP 7cm H2O. Not tolerated. 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 documented as of this encounter (statuses as of 03/24/2023) [facility] History of Past illness Narrative* Problem Noted Date Diagnosed Date Resolved Date CKD (chronic kidney disease) stage 3, GFR 30-59 ml/min 06/30/2017 04/01/2022 Tubular adenoma of colon 06/23/201606/2020 Overview: Recheck 06/21/2019 Thrombocytopenia 07/20/2015 11/08/2016 AIMEE (obstructive sleep apnea ) intolerant to CPAP 07/20/2015 09/17/2020 Right inguinal hernia 07/10/20152016 Acute cholecystitis with chr onic cholecystitis 03/24/2015 06/11/2015 Calculus of gallbladder with chronic cholecystitis without obstruction 02/11/20152015 Gallstone pancreatitis 01/15/201506/11 Open wound(s) (multiple) of unspecified site(s), without mention of complication 03/28/2013 12/09/2014 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: upper postlat side of scalp (well above R ear): R/O BCC so SCC vs Vascular Tumor 01/09/2013 0 12/09/2014 Santo angioma 01/09/2013 12/09/2014 Atypical nevus of back 01/09/201305/11 Scars 01/09/2013 12/09/2014 Personal history of other ma lignant neoplasm of skin 01/09/2013 11/08/2016 R/O BCC (basal cell carcinom a), face: L lower alar side nose 08/08/2012 01/09/2013 Neoplasm of uncertain behavi or of skin: ?early Superficial BCC at L upper back Eulalio Ker 12/25/2011 01/09/2013 Irritated//Inflamed Seborrheic Keratosis 05/19/2011 12/09/2014 Other Seborrheic Keratoses 05/19/2011 1 06/02/2021 Actinic skin damage 05/19/2011 12/10/19 15 Solar Lentigines 05/19/2011 12/09/2014 Benign neoplasm of scalp and skin of neck 04/06/2009 12/09/2014 Benign neoplasm of ear and e xternal auditory canal 04/06/2009 06/11/2015 Benign neoplasm of skin of o ther and unspecified parts of face 04/06/2009 06/11/2015 Unspecified hypertrophic and atrophic condition of skin 03/20/2009 12/09/2014 Elevated prostate specific antigen (PSA) 03/18/2005 09/17/2020 SLEEP APNEA 01/04/2005 12/09/2014 Overview: Nasal CPAP 7cm H2O. Not tolerated. 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 documented as of this encounter (statuses as of 03/24/2023) [facility] History of Past illness Narrative* Problem Noted Date Diagnosed Date Resolved Date CKD (chronic kidney disease) stage 3, GFR 30-59 ml/min 06/30/2017 04/01/2022 Tubular adenoma of colon 06/23/201606/2020 Overview: Recheck 06/21/2019 Thrombocytopenia 07/20/2015 11/08/2016 AIMEE (obstructive sleep apnea ) intolerant to CPAP 07/20/2015 09/17/2020 Right inguinal hernia 07/10/20152016 Acute cholecystitis with chr onic cholecystitis 03/24/2015 06/11/2015 Calculus of gallbladder with chronic cholecystitis without obstruction 02/11/20152015 Gallstone pancreatitis 01/15/201506/11 Open wound(s) (multiple) of unspecified site(s), without mention of complication 03/28/2013 12/09/2014 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: upper postlat side of scalp (well above R ear): R/O BCC so SCC vs Vascular Tumor 01/09/2013 0 12/09/2014 Santo angioma 01/09/2013 12/09/2014 Atypical nevus of back 01/09/201305/11 Scars 01/09/2013 12/09/2014 Personal history of other ma lignant neoplasm of skin 01/09/2013 11/08/2016 R/O BCC (basal cell carcinom a), face: L lower alar side nose 08/08/2012 01/09/2013 Neoplasm of uncertain behavi or of skin: ?early Superficial BCC at L upper back Eulalio Ker 12/25/2011 01/09/2013 Irritated//Inflamed Seborrheic Keratosis 05/19/2011 12/09/2014 Other Seborrheic Keratoses 05/19/2011 1 06/02/2021 Actinic skin damage 05/19/2011 12/10/19 15 Solar Lentigines 05/19/2011 12/09/2014 Benign neoplasm of scalp and skin of neck 04/06/2009 12/09/2014 Benign neoplasm of ear and e xternal auditory canal 04/06/2009 06/11/2015 Benign neoplasm of skin of o ther and unspecified parts of face 04/06/2009 06/11/2015 Unspecified hypertrophic and atrophic condition of skin 03/20/2009 12/09/2014 Elevated prostate specific antigen (PSA) 03/18/2005 09/17/2020 SLEEP APNEA 01/04/2005 12/09/2014 Overview: Nasal CPAP 7cm H2O. Not tolerated. 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 documented as of this encounter (statuses as of 04/05/2023) [facility] History of Past illness Narrative* Problem Noted Date Resolved Date Tubular adenoma of colon 06/23/2016 021 Overview: Recheck 06/21/2019 Thrombocytopenia 07/20/2015 11/08/2016 AIMEE (obstructive sleep apnea) intolerant to CPAP 07/20/2015 09/17/2020 Right inguinal hernia 07/10/2015 05/11/2016 Acute cholecystitis with chronic cholecystitis 1 05/25/2014 06/11/2015 Calculus of gallbladder with chronic cholecystitis without obstruction 02/11/2015 06/11/2015 Gallstone pancreatitis 01/15/2015 6 Open wound(s) (multiple) of unspecified site(s), without mention of complication 03/28/2013 12/09/2014 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: upper postlat side of scalp (well above R ear): R/O BCC so SCC vs Vascular Tumor 01/09/2013 12/09/2014 Santo angioma 01/09/2013 12/09/2014 Atypical nevus of back 01/09/2013 7 Scars 01/09/2013 12/09/2014 Personal history of other malignant neoplasm of skin 01/09/2013 11/08/2016 R/O BCC (basal cell carcinoma), face: L lower al ar side nose 08/08/2012 01/09/2013 Neoplasm of uncertain behavi or of skin: ?early Superficial BCC at L upper back Eulalio Ker 12/25/2011 01/09/2013 Irritated//Inflamed Seborrheic Keratosis 012 12/09/2014 Actinic skin damage 05/19/2011 12/09/2014 Solar Lentigines 05/19/2011 12/09/2014 Benign neoplasm of scalp and skin of neck 200812/09/2014 Benign neoplasm of ear and external auditory can al 04/06/2009 06/11/2015 Benign neoplasm of skin of o ther and unspecified parts of face 04/06/2009 06/11/2015 Unspecified hypertrophic and atrophic condition of skin 03/20/2009 12/09/2014 Elevated prostate specific antigen (PSA) 005 09/17/2020 SLEEP APNEA 01/04/2005 12/09/2014 Overview: Nasal CPAP 7cm H2O. Not tolerated. 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 documented as of this encounter (statuses as of 09/30/2021) [facility] History of Past illness Narrative* Problem Noted Date Resolved Date Tubular adenoma of colon 06/23/2016 021 Overview: Recheck 06/21/2019 Thrombocytopenia 07/20/2015 11/08/2016 AIMEE (obstructive sleep apnea) intolerant to CPAP 07/20/2015 09/17/2020 Right inguinal hernia 07/10/2015 05/11/2016 Acute cholecystitis with chronic cholecystitis 1 05/25/2014 06/11/2015 Calculus of gallbladder with chronic cholecystitis without obstruction 02/11/2015 06/11/2015 Gallstone pancreatitis 01/15/2015 6 Open wound(s) (multiple) of unspecified site(s), without mention of complication 03/28/2013 12/09/2014 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: upper postlat side of scalp (well above R ear): R/O BCC so SCC vs Vascular Tumor 01/09/2013 12/09/2014 Santo angioma 01/09/2013 12/09/2014 Atypical nevus of back 01/09/2013 7 Scars 01/09/2013 12/09/2014 Personal history of other malignant neoplasm of skin 01/09/2013 11/08/2016 R/O BCC (basal cell carcinoma), face: L lower al ar side nose 08/08/2012 01/09/2013 Neoplasm of uncertain behavi or of skin: ?early Superficial BCC at L upper back Eulalio Ker 12/25/2011 01/09/2013 Irritated//Inflamed Seborrheic Keratosis 012 12/09/2014 Actinic skin damage 05/19/2011 12/09/2014 Solar Lentigines 05/19/2011 12/09/2014 Benign neoplasm of scalp and skin of neck 200812/09/2014 Benign neoplasm of ear and external auditory can al 04/06/2009 06/11/2015 Benign neoplasm of skin of o ther and unspecified parts of face 04/06/2009 06/11/2015 Unspecified hypertrophic and atrophic condition of skin 03/20/2009 12/09/2014 Elevated prostate specific antigen (PSA) 005 09/17/2020 SLEEP APNEA 01/04/2005 12/09/2014 Overview: Nasal CPAP 7cm H2O. Not tolerated. 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 documented as of this encounter (statuses as of 10/28/2021) [facility] History of Past illness Narrative* Problem Noted Date Resolved Date Tubular adenoma of colon 06/23/2016 021 Overview: Recheck 06/21/2019 Thrombocytopenia 07/20/2015 11/08/2016 AIMEE (obstructive sleep apnea) intolerant to CPAP 07/20/2015 09/17/2020 Right inguinal hernia 07/10/2015 05/11/2016 Acute cholecystitis with chronic cholecystitis 1 05/25/2014 06/11/2015 Calculus of gallbladder with chronic cholecystitis without obstruction 02/11/2015 06/11/2015 Gallstone pancreatitis 01/15/2015 6 Open wound(s) (multiple) of unspecified site(s), without mention of complication 03/28/2013 12/09/2014 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: upper postlat side of scalp (well above R ear): R/O BCC so SCC vs Vascular Tumor 01/09/2013 12/09/2014 Santo angioma 01/09/2013 12/09/2014 Atypical nevus of back 01/09/2013 7 Scars 01/09/2013 12/09/2014 Personal history of other malignant neoplasm of skin 01/09/2013 11/08/2016 R/O BCC (basal cell carcinoma), face: L lower al ar side nose 08/08/2012 01/09/2013 Neoplasm of uncertain behavi or of skin: ?early Superficial BCC at L upper back Eulalio Ker 12/25/2011 01/09/2013 Irritated//Inflamed Seborrheic Keratosis 012 12/09/2014 Actinic skin damage 05/19/2011 12/09/2014 Solar Lentigines 05/19/2011 12/09/2014 Benign neoplasm of scalp and skin of neck 200812/09/2014 Benign neoplasm of ear and external auditory can al 04/06/2009 06/11/2015 Benign neoplasm of skin of o ther and unspecified parts of face 04/06/2009 06/11/2015 Unspecified hypertrophic and atrophic condition of skin 03/20/2009 12/09/2014 Elevated prostate specific antigen (PSA) 005 09/17/2020 SLEEP APNEA 01/04/2005 12/09/2014 Overview: Nasal CPAP 7cm H2O. Not tolerated. 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 documented as of this encounter (statuses as of 11/11/2021) [facility] History of Past illness Narrative* Problem Noted Date Resolved Date Tubular adenoma of colon 06/23/2016 021 Overview: Recheck 06/21/2019 Thrombocytopenia 07/20/2015 11/08/2016 AIMEE (obstructive sleep apnea) intolerant to CPAP 07/20/2015 09/17/2020 Right inguinal hernia 07/10/2015 05/11/2016 Acute cholecystitis with chronic cholecystitis 1 05/25/2014 06/11/2015 Calculus of gallbladder with chronic cholecystitis without obstruction 02/11/2015 06/11/2015 Gallstone pancreatitis 01/15/2015 6 Open wound(s) (multiple) of unspecified site(s), without mention of complication 03/28/2013 12/09/2014 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: upper postlat side of scalp (well above R ear): R/O BCC so SCC vs Vascular Tumor 01/09/2013 12/09/2014 Santo angioma 01/09/2013 12/09/2014 Atypical nevus of back 01/09/2013 7 Scars 01/09/2013 12/09/2014 Personal history of other malignant neoplasm of skin 01/09/2013 11/08/2016 R/O BCC (basal cell carcinoma), face: L lower al ar side nose 08/08/2012 01/09/2013 Neoplasm of uncertain behavi or of skin: ?early Superficial BCC at L upper back Eulalio Ker 12/25/2011 01/09/2013 Irritated//Inflamed Seborrheic Keratosis 012 12/09/2014 Actinic skin damage 05/19/2011 12/09/2014 Solar Lentigines 05/19/2011 12/09/2014 Benign neoplasm of scalp and skin of neck 200812/09/2014 Benign neoplasm of ear and external auditory can al 04/06/2009 06/11/2015 Benign neoplasm of skin of o ther and unspecified parts of face 04/06/2009 06/11/2015 Unspecified hypertrophic and atrophic condition of skin 03/20/2009 12/09/2014 Elevated prostate specific antigen (PSA) 005 09/17/2020 SLEEP APNEA 01/04/2005 12/09/2014 Overview: Nasal CPAP 7cm H2O. Not tolerated. 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 documented as of this encounter (statuses as of 01/07/2022) [facility] History of Past illness Narrative* Problem Noted Date Resolved Date Tubular adenoma of colon 06/23/2016 021 Overview: Recheck 06/21/2019 Thrombocytopenia 07/20/2015 11/08/2016 AIEME (obstructive sleep apnea) intolerant to CPAP 07/20/2015 09/17/2020 Right inguinal hernia 07/10/2015 05/11/2016 Acute cholecystitis with chronic cholecystitis 1 05/25/2014 06/11/2015 Calculus of gallbladder with chronic cholecystitis without obstruction 02/11/2015 06/11/2015 Gallstone pancreatitis 01/15/2015 6 Open wound(s) (multiple) of unspecified site(s), without mention of complication 03/28/2013 12/09/2014 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: upper postlat side of scalp (well above R ear): R/O BCC so SCC vs Vascular Tumor 01/09/2013 12/09/2014 Santo angioma 01/09/2013 12/09/2014 Atypical nevus of back 01/09/2013 7 Scars 01/09/2013 12/09/2014 Personal history of other malignant neoplasm of skin 01/09/2013 11/08/2016 R/O BCC (basal cell carcinoma), face: L lower al ar side nose 08/08/2012 01/09/2013 Neoplasm of uncertain behavi or of skin: ?early Superficial BCC at L upper back Eulalio Ker 12/25/2011 01/09/2013 Irritated//Inflamed Seborrheic Keratosis 012 12/09/2014 Actinic skin damage 05/19/2011 12/09/2014 Solar Lentigines 05/19/2011 12/09/2014 Benign neoplasm of scalp and skin of neck 200812/09/2014 Benign neoplasm of ear and external auditory can al 04/06/2009 06/11/2015 Benign neoplasm of skin of o ther and unspecified parts of face 04/06/2009 06/11/2015 Unspecified hypertrophic and atrophic condition of skin 03/20/2009 12/09/2014 Elevated prostate specific antigen (PSA) 005 09/17/2020 SLEEP APNEA 01/04/2005 12/09/2014 Overview: Nasal CPAP 7cm H2O. Not tolerated. 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 documented as of this encounter (statuses as of 01/07/2022) [facility] Medicare annual wellness visit, subsequent- Primary Routine general medical examination at a health care facility Essential hypertension Unspecified essential hypertension Hyperlipidemia, unspecified hyperlipidemia type Impaired fasting glucose Hypertensive kidney disease with stage 3a chronic kidney disease (HCC) [facility] Diagnosis Episodic lightheadedness- Primary Dizziness and giddiness Essential hypertension Unspecified essential hypertension [facility] Essential hypertension Unspecified essential hypertension [facility] Diagnosis Essential hypertension- Primary Unspecified essential hypertension Need for influenza vaccination Need for prophylactic vaccination and inoculation against influenza BPH with obstruction/lower urinary tract symptoms Hypertrophy of prostate with urinary obstruction and other lower urinary tract symptoms (LUTS) Impaired fasting glucose Hypertensive kidney disease with stage 3a chronic kidney disease (HCC) Episodic lightheadedness Dizziness and giddiness [facility] Diagnosis Essential hypertension- Primary Unspecified essential hypertension Hypertensive kidney disease with stage 3a chronic kidney disease (HCC) [facility] Diagnosis Medicare annual wellness visit, subsequent- Primary Routine general medical examination at a health care facility Essential hypertension Unspecified essential hypertension Hypertensive kidney disease with stage 3a chronic kidney disease (HCC) Impaired fasting glucose Hyperlipidemia, unspecified hyperlipidemia type Dizziness Dizziness and giddiness [facility] Diagnosis Essential hypertension Unspecified essential hypertension [facility] Diagnosis Essential hypertension Unspecified essential hypertension [facility] Diagnosis TIA (transient ischemic attack)- Primary Unspecified transient cerebral ischemia Left upper extremity numbness Disturbance of skin sensation Memory impairment Memory loss documented in this encounter [facility]* Diagnosis Acute kidney injury superimposed on CKD (HCC)- Primary BPH with obstruction/lower urinary tract symptoms Hypertrophy of prostate with urinary obstruction and other lower urinary tract symptoms (LUTS) Essential hypertension Unspecified essential hypertension [facility] Diagnosis Left groin pain- Primary Abdominal pain, left lower quadrant Acute left-sided low back pain without sciatica [facility] Diagnosis Hyperlipidemia, unspecified hyperlipidemia type [facility]* Diagnosis Cerebrovascular accident (CVA) due to occlusion of right middle cerebral artery (HCC)- Primary [facility] Diagnosis Essential hypertension Unspecified essential hypertension [facility] Diagnosis Hyperlipidemia, unspecified hyperlipidemia type [facility] Diagnostic Procedure Only (Routine) - Closed Specialty Diagnoses / Procedures Referred By Contac t Referred To Contact XR IMAGING Diagnoses Acute left-sided low back pain without sciatica Procedures XR LUMBAR GENERAL 3V AP/LAT/L5-S1 RADEX SPINE LUMBOSACRAL 2/3 VIEWS Laurita Aguilar APRN.PUBLICATIONS INSPECTOR [address] [place] [address] [place] [id number] Referral ID Status Reason Start Date Expiration Date V isits Requested Visits Authorized [id number] Closed Auto-Generate d Referral 03/13/2023 04/11/2024 1 1 * Diagnostic Procedure Only (Routine) - Closed Specialty Diagnoses / Procedures Referred By Contac t Referred To Contact XR IMAGING Diagnoses Left groin pain Procedures XR HIP GENERAL 3V PELV/AP/LAT LEFT RADEX HIP UNILATERAL WITH PELVIS 2-3 VIEWS Laurita Aguilar APRN.PUBLICATIONS INSPECTOR [address] [place] [address] [place] [address] Referral ID Status Reason Start Date Expiration Date V isits Requested Visits Authorized [id number] Closed Auto-Generate d Referral 03/13/2023 04/11/2024 1 1 * MRI/CT (Urgent) - Closed Specialty Diagnoses / Procedures Referred By Contac t Referred To Contact CT IMAGING Diagnoses Left groin pain Acute left-sided low back pain without sciatica Procedures CT FLANK WO IVCON CT ABD & PELVIS W/O CONTRAST Laurita Aguilar APRN.PUBLICATIONS INSPECTOR [address] [place] [address] [place] [address] Referral ID Status Reason Start Date Expiration Date V isits Requested Visits Authorized [id number] Closed Auto-Generate d Referral 03/13/2023 04/11/2024 1 1 [facility] Summary Purpose Family History No Family History Records FoundNo Family History Records Found Advance Directives No Advanced Directives Records FoundDocuments on File Type Date Recorded 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 Advance Directive(s) 06/20/2016 1:57 PM Advance Directive(s) 08/04/2015 7:58 AM Advance Directive(s) 07/15/2015 2:38 PM Additional Source Comments (unrecognized sect ion and content) No Status Records FoundNo Status Records Found INFORMATION SOURCE (unrecogn ized section and content) DATE CREATED AUTHOR AUTHOR'S ORGANIZ ATION 04/15/2023 [facility] Source Comments (unrecognize d section and content) In the event this informatio n is protected by the Federal Confidentiality of Alcohol and Drug Abuse Patient Records regulations: The Federal rules restrict any use of the information to criminally investigate or prosecute any alcohol or drug abuse patient.[facility] the event this information is protected by the Federal Confidentiality of Alcohol and Drug Abuse Patient Records regulations: The Federal rules restrict any use of the information to criminally investigate or prosecute any alcohol or drug abuse patient.[facility] the event this information is protected by the Federal Confidentiality of Alcohol and Drug Abuse Patient Records regulations: The Federal rules restrict any use of the information to criminally investigate or prosecute any alcohol or drug abuse patient.[facility] the event this information is protected by the Federal Confidentiality of Alcohol and Drug Abuse Patient Records regulations: The Federal rules restrict any use of the information to criminally investigate or prosecute any alcohol or drug abuse patient.[facility] the event this information is protected by the Federal Confidentiality of Alcohol and Drug Abuse Patient Records regulations: The Federal rules restrict any use of the information to criminally investigate or prosecute any alcohol or drug abuse patient.[facility] the event this information is protected by the Federal Confidentiality of Alcohol and Drug Abuse Patient Records regulations: The Federal rules restrict any use of the information to criminally investigate or prosecute any alcohol or drug abuse patient.[facility] the event this information is protected by the Federal Confidentiality of Alcohol and Drug Abuse Patient Records regulations: The Federal rules restrict any use of the information to criminally investigate or prosecute any alcohol or drug abuse patient.[facility] the event this information is protected by the Federal Confidentiality of Alcohol and Drug Abuse Patient Records regulations: The Federal rules restrict any use of the information to criminally investigate or prosecute any alcohol or drug abuse patient.[facility] the event this information is protected by the Federal Confidentiality of Alcohol and Drug Abuse Patient Records regulations: The Federal rules restrict any use of the information to criminally investigate or prosecute any alcohol or drug abuse patient.[facility] the event this information is protected by the Federal Confidentiality of Alcohol and Drug Abuse Patient Records regulations: The Federal rules restrict any use of the information to criminally investigate or prosecute any alcohol or drug abuse patient.[facility] the event this information is protected by the Federal Confidentiality of Alcohol and Drug Abuse Patient Records regulations: The Federal rules restrict any use of the information to criminally investigate or prosecute any alcohol or drug abuse patient.[facility] the event this information is protected by the Federal Confidentiality of Alcohol and Drug Abuse Patient Records regulations: The Federal rules restrict any use of the information to criminally investigate or prosecute any alcohol or drug abuse patient.[facility] the event this information is protected by the Federal Confidentiality of Alcohol and Drug Abuse Patient Records regulations: The Federal rules restrict any use of the information to criminally investigate or prosecute any alcohol or drug abuse patient.[facility] the event this information is protected by the Federal Confidentiality of Alcohol and Drug Abuse Patient Records regulations: The Federal rules restrict any use of the information to criminally investigate or prosecute any alcohol or drug abuse patient.[facility] the event this information is protected by the Federal Confidentiality of Alcohol and Drug Abuse Patient Records regulations: The Federal rules restrict any use of the information to criminally investigate or prosecute any alcohol or drug abuse patient.[facility] the event this information is protected by the Federal Confidentiality of Alcohol and Drug Abuse Patient Records regulations: The Federal rules restrict any use of the information to criminally investigate or prosecute any alcohol or drug abuse patient.[facility] the event this information is protected by the Federal Confidentiality of Alcohol and Drug Abuse Patient Records regulations: The Federal rules restrict any use of the information to criminally investigate or prosecute any alcohol or drug abuse patient.[facility]In the event this information is protected by the Federal Confidentiality of Alcohol and Drug Abuse Patient Records regulations: The Federal rules restrict any use of the information to criminally investigate or prosecute any alcohol or drug abuse patient.[facility] the event this information is protected by the Federal Confidentiality of Alcohol and Drug Abuse Patient Records regulations: The Federal rules restrict any use of the information to criminally investigate or prosecute any alcohol or drug abuse patient.[facility] the event this information is protected by the Federal Confidentiality of Alcohol and Drug Abuse Patient Records regulations: The Federal rules restrict any use of the information to criminally investigate or prosecute any alcohol or drug abuse patient.[facility]In the event this information is protected by the Federal Confidentiality of Alcohol and Drug Abuse Patient Records regulations: The Federal rules restrict any use of the information to criminally investigate or prosecute any alcohol or drug abuse patient.[facility]In the event this information is protected by the Federal Confidentiality of Alcohol and Drug Abuse Patient Records regulations: The Federal rules restrict any use of the information to criminally investigate or prosecute any alcohol or drug abuse patient.[facility] the event this information is protected by the Federal Confidentiality of Alcohol and Drug Abuse Patient Records regulations: The Federal rules restrict any use of the information to criminally investigate or prosecute any alcohol or drug abuse patient.[facility]In the event this information is protected by the Federal Confidentiality of Alcohol and Drug Abuse Patient Records regulations: The Federal rules restrict any use of the information to criminally investigate or prosecute any alcohol or drug abuse patient.[facility] the event this information is protected by the Federal Confidentiality of Alcohol and Drug Abuse Patient Records regulations: The Federal rules restrict any use of the information to criminally investigate or prosecute any alcohol or drug abuse patient.[facility] HospitalIn the event this information is protected by the Federal Confidentiality of Alcohol and Drug Abuse Patient Records regulations: The Federal rules restrict any use of the information to criminally investigate or prosecute any alcohol or drug abuse patient.[facility] ClinicIn the event this information is protected by the Federal Confidentiality of Alcohol and Drug Abuse Patient Records regulations: The Federal rules restrict any use of the information to criminally investigate or prosecute any alcohol or drug abuse patient.[facility] the event this information is protected by the Federal Confidentiality of Alcohol and Drug Abuse Patient Records regulations: The Federal rules restrict any use of the information to criminally investigate or prosecute any alcohol or drug abuse patient.[facility] the event this information is protected by the Federal Confidentiality of Alcohol and Drug Abuse Patient Records regulations: The Federal rules restrict any use of the information to criminally investigate or prosecute any alcohol or drug abuse patient.[facility] the event this information is protected by the Federal Confidentiality of Alcohol and Drug Abuse Patient Records regulations: The Federal rules restrict any use of the information to criminally investigate or prosecute any alcohol or drug abuse patient.[facility] Reason for Visit (unrecogniz ed section and content) Reason Comments Patient Update Reason Comments Blood Pressure Check Reason Comments Blood Pressure Check Complains of dizzin ess. Patient states stopped taking bp meds in the last 24 hours. Reason Onset Date Comments F/U 6 months Immunizations 04/01/2022 Flu vaccination Reason Comments F/U 3 Month Reason Onset Date Comments ACM LORIN RN 11/02/2022 Medication Ad herence review per request of payer Reason Comments Hospital F/U Reason Comments Home Health Orders Reason Comments Home Health Point of Care Results Reason Comments [facility] OT POC Reason Comments medication clinical trial- [facility] Reason Comments Home Health Question Reason Comments Follow Up Reason Comments Home Health Update Reason Comments [facility]- request vo Reason Comments report low bp reading Reason Comments Speech Therapy Update FYI-No Action Needed Reason Comments left flank pain - x 4 days C/o possible kidney infection Reason Onset Date Comments Refill Request 03/13/2023 Reason Onset Date Comments Refill Request 03/20/2023 Reason Onset Date Comments Refill Request 04/04/2023 Care Teams (unrecognized sec tion and content) Manager Front Relationship Specialty Start Date End Date Cholo Friedman MD [address] [place] [address] PCP - General 06/11/04 Manager Front Relationship Specialty Start Date End Date Cholo Friedman MD [address] [place] [address] PCP - General 06/11/04 Manager Front Relationship Specialty Start Date End Date Cholo Friedman MD [address] [place] [address] PCP - General 06/11/04 Manager Front Relationship Specialty Start Date End Date Cholo Friedman MD [address] [place] [address] PCP - General 06/11/04 Manager Front Relationship Specialty Start Date End Date Cholo Friedman MD [address] [place] [address] PCP - General 06/11/04 Manager Front Relationship Specialty Start Date End Date Cholo Friedman MD [address] [place] [address] PCP - General 06/11/04 Manager Front Relationship Specialty Start Date End Date Cholo Friedman MD [address] [place] [address] PCP - General 06/11/04 Manager Front Relationship Specialty Start Date End Date Cholo Friedman MD [address] [place] [address] PCP - General 06/11/04 Manager Front Relationship Specialty Start Date End Date Cholo Friedman MD [address] [place] [address] PCP - General 06/11/04 Manager Front Relationship Specialty Start Date End Date Cholo Friedman MD [address] [place] [address] PCP - General 06/11/04 Manager Front Relationship Specialty Start Date End Date Cholo Friedman MD [address] [place] [address] PCP - General 06/11/04 Manager Front Relationship Specialty Start Date End Date Cholo Friedman MD [address] [place] [address] PCP - General 06/11/04 Manager Front Relationship Specialty Start Date End Date Cholo Friedman MD [address] [place] [address] PCP - General 06/11/04 Manager Front Relationship Specialty Start Date End Date Cholo Friedman MD [address] [place], [place] [address] PCP - General 06/11/04 Manager Front Relationship Specialty Start Date End Date Cholo Friedman MD [address] [place] [address] PCP - General 06/11/04 Manager Front Relationship Specialty Start Date End Date Cholo Friedman MD [address] [place], [place] [address] PCP - General 06/11/04 Manager Front Relationship Specialty Start Date End Date Cholo Friedman MD [address] [place], [place] [address] PCP - General 06/11/04 FOR RECORDS PERTAINING TO PATIENTS WHO ARE OR HAVE BEEN ENROLLED IN A CHEMICAL DEPENDENCY/SUBSTANCEABUSE PROGRAM, SOME INFORMATION MAY BE OMITTED. This clinical summary was aggregated from multiple sources. Caution should be exercised in using it in the provision of clinical care. This summary normalizes information from multiple sources, and as a consequence, information in this document may materially change the coding, format and clinical context of patient data. In addition, data may be omitted in some cases. CLINICAL DECISIONS SHOULD BE BASED ON THE PRIMARY CLINICAL RECORDS. [facility] [employer] [facility]. provides no warranty or guarantee of the accuracy or completeness of information in this document.
[2023-04-20 09:55] LABS: Hematocrit 45.9 % (40-54); Mean Corp Hgb Conc 32.7 g/dL (32-36); Mean Corpuscular Hgb 29.4 pg (27.0-32.0); Mean Platelet Vol. 8.9 fl (6.2-12.0); Platelet Count 203 K/mm3 (150-450); RBC Distribution Width CV 13.1 % (11.6-14.6); RBC Distribution Width SD 42.8 fl (35.1-43.9); White Blood Count 6.6 K/mm3 (4.4-11.0)
[2023-04-20 10:24] LABS: Anion Gap 7 (5-15); BUN 20 mg/dL (7-18); BUN/Creat Ratio 16.5 RATIO (10-20); Calcium,Total 9.7 mg/dL (8.5-10.1); Chloride 105 mmol/L (98-107); Creatinine, Serum 1.21 mg/dL (0.70-1.30); EST Glomerular Filtration Rate 60 mL/min (>60); Est Glom Filt Rate - Afr Amer 73 mL/min (>60); Glucose 148 mg/dL (74-106); Potassium 3.9 mmol/L (3.5-5.1); Sodium Level 142 mmol/L (136-145)
[2023-04-24] VITALS (8 sets, daily range): BP systolic 125–172; BP diastolic 73–100; PULSE 77–88; RESP 16–18; TEMP 36.2–36.6; O2SAT 94–100; BMI 23.6
--- NOTE | 2023-04-24 | HERN_PTH ---
PATHOLOGY RESULTS PATIENT: LIV OROZCO LOC: [facility] [place] U#:[id number] AGE/SX: 87/M ROOM: RE04/24/[address]: Dr. Bakari Moctezuma MD : 1935 BED: DIS: 04/24/2023 SPEC #: [id number] RECD: 04/24/23 13:48 STATUS: NEYMAR JASON #: [id number] GIBSON: 04/24/23 00:[address]: Bakari Moctezuma DEPT: SURGICAL PATHOLOGY RECD BY: Zack Gotti ENTERED: 04/24/23 13:48 SP TYPE: Hernia OTHR DR: Dr. Cholo Friedman MD Tissues: HERNIA LIPOMA OF CORD Procedures: Surgery Specimen Level II Surgery Specimen Level III HEADER OPERATION: Incarcerated ventral hernia, left inguinal repair PRE-OP DIAGNOSIS: Incarcerated ventral hernia, inguinal hernia of left side, umbilical hernia TISSUE SUBMITTED: A - Hernia sac and contents - ventral, B - Left inguinal cord lipoma MICROSCOPIC DIAGNOSIS A. Hernia sac and contents: A piece of adipose tissue consistent with hernia sac with focal congestion and hemorrhage. B. Left inguinal cord lipoma, excision: Mature adipose tissue consistent with lipoma. BEN:varghese 04/25/2023 MICROSCOPIC DESCRIPTION Slides are reviewed. GROSS DESCRIPTION A - Received in fixative is one container labeled with the patient's name and designated ventral hernia sac and contents. The specimen consists of a piece of adipose tissue measuring 15.0 x 5.0 x 1.5 cm. Sections do not reveal any mass lesion. Title I Assistant sections are submitted in one cassette. B - Received in fixative is one container labeled with the patient's name and designated left inguinal cord lipoma. The specimen consists of a piece of adipose tissue measuring 7.5 x 4.5 x 2.0 cm. Sections reveal yellow adipose cut surfaces without area of hemorrhage, necrosis or cystic degeneration. Title I Assistant sections are submitted in two cassettes. / BEN:varghese 04/24/2023 TC:1 CPT: 21053, 22185
--- NOTE | 2023-04-24 09:32 | PCM.HP.BLA ---
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 Is patient in pain?: No Allergies No Known Allergies Allergy (Verified 04/13/23 13:18) Medications multivitamin,vo-fkmp-viphphjg 27 mg-0.4 mg tablet (Therems-M) 1 tab PO DAILY 02/02/15 [History Confirmed 04/13/23] amlodipine 10 mg tablet 10 mg PO DAILY 30 days #30 tabs 01/05/23 [Rx Confirmed 04/13/23] aspirin 81 mg chewable tablet 81 mg PO BREAKFAST 30 days #30 tabs 01/05/23 [Rx Confirmed 04/13/23] atorvastatin 80 mg tablet 80 mg PO QHS 30 days #30 tabs 01/05/23 [Rx Confirmed 04/13/23] clopidogrel 75 mg tablet (Plavix) 75 mg PO DAILY 30 days #30 tabs 01/05/23 [Rx Confirmed 04/13/23] sennosides 8.6 mg-docusate sodium 50 mg tablet (Stool Softener-Stimulant Laxative) 2 tab PO BID PRN PRN Constipation #0 tabs 01/05/23 [Rx Confirmed 04/13/23] ibuprofen 200 mg capsule 200 mg PO Q6H PRN 04/13/23 [History Confirmed 04/13/23] terazosin 2 mg capsule 5 mg PO QHS 04/13/23 [History Confirmed 04/13/23] PFSH Medical History (Updated 04/13/23 @ 15:[address] 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 chronic kidney disease BPH (benign prostatic hyperplasia) Epilepsy Former tobacco use Glaucoma Case-neglect of left side History of diet-controlled diabetes History of hypertension History of TIAs HLD (hyperlipidemia) HTN (hypertension) AIMEE (obstructive sleep apnea) TIA (transient ischemic attack) Umbilical hernia Surgical History H/O hernia repair H/O vein stripping History of skin surgery Hx of cholecystectomy Family History Mother Hypertension Diabetes Uterine cancerBrother CAD (coronary artery disease) Heart disease Hypertension Social History household members: none housing: house Smoking Status: Never smoker how long ago did patient quit smokin04/17/1968 alcohol intake: never substance use type: does not use HPI HPI HPI: 87-year-old gentleman is being referred by Laurita Aguilar CNP and Dr. Cholo Friedman for surgical consultation regarding an umbilical hernia and a written copy of my surgical consult will be returned to them. Through the [facility] on March 13, [address] abdomen and pelvis. Couple right renal stones. Evidence of previous cholecystectomy with mild biliary tree dilatation. Colonic diverticulosis. Heavy calcification of the vasculature. Enlarged prostate with mild mural thickening of the distended urinary bladder. In addition a small fat-containing left inguinal hernia and a supraumbilical hernia with omental fat. The neck measures a centimeter and the hernia sac measures 4.3 cm. Because of left hip pain the patient had plain films showing no acute fracture. Possible calcific tendinitis. The patient complained of a left back flank pain and have shooting pain down the left buttock area. He was suspicious about sciatica on the left. He has had a remote history of a right inguinal hernia repair at 6 years of age. I tried to assist him with a previous cholecystectomy in 2014 but there was a large bowel and duodenal involvement so I aborted the procedure. Dr. Barragan also then on March 30 performed a open cholecystectomy. This did involve the duodenotomy and also a pyloromyotomy because of the gastric outlet obstruction secondary to the degree of inflammation in the area and then the duodenum had to be separately repaired as well. The patient is complaining of an ever progressing ventral hernia superior to the umbilicus. He has no discomfort at the umbilicus. He is noting a bulge in the left groin. He himself cannot reduce this. His primary concern was acute left-sided low back pain and shooting left buttock pain with additionally some left groin discomfort Personally reviewed his CT images. He has a ventral supraumbilical hernia as noted. In addition he has a small umbilical hernia. In addition he has a fat-containing left inguinal hernia with probable additional cord lipoma. It is very pertinent that 2 months ago he had CVA with transient loss of sensation left upper extremity. MRI suggested moderate acute right middle cerebral artery watershed territory infarction. 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 Review of the patient's medication reveals that he is on low-dose aspirin therapy 80 mg daily and atorvastatin 80 mg daily and clopidogrel 75 mg daily in addition to his other medications. ROS General General: Yes weight change; No appetite, fatigue, colon cancer, breast cancer or weakness HEENT HEENT: No difficulty swallowing, eye injury, eye surgery, swollen glands or hoarseness Endo Endocrine: Yes diabetes mellitus; No thyroid disease, thyroid cancer, Hair loss, heat intolerance or cold intolerance Skin Skin: No rash or changing moles Breast Breast: No left breast lump, right breast lump, nipple discharge, breast pain, abnormal mammogram, abnormal US or breast enlargement Musc Musculoskeletal: No back problems, arthritis, rheumatoid arthritis, gout or joint pain Cardio Cardiovascular: Yes high blood pressure; No murmur, pacemaker, heart disease, atrial fibrillation, heart attack, heart stent, palpitations, shortness of breat with exertion or chest pain Psych Psychiatric: No depression, anxiety or hearing voices Resp Respiratory: No shortness of breath, No sleep apnea, Yes cough, No COPD, No asthma, No emphysema and No wheezing Gastro Gastrointestinal: No abdominal pain, No nausea or vomiting, No diarrhea, No constipation, No blood in stool, No acid reflux, No hemorrhoids, No ulcers, No gallbladder problem and No black,tarry stools Julius Hematologic: Yes blood thinners, No blood disorders, No bleeding, No anemia and Yes blood clots Additional Details: Brain-CVA Neuro Neurologic: No system reviewed and no additional complaints, except as documented, No as per HPI, No abnormal gait, No abnormal hearing, No abnormal movements, No abnormal speech, No behavioral changes, No burning sensations, No confusion, No convulsions, No disequilibrium, No dizziness, No localized weakness, No frequent falls, No headache(s), No lack of coordination, No loss of vision, No memory loss, No numbness, No other visual disturbances, No radicular pain, No restless legs, No sensory deficit, No syncope, No tingling, No tremor(s), No weakness and Yes other (History CVA) Exam Const General: cooperative, comfortable and no acute distress Nutritional Appearance: average body habitus [facility] Head: normal to inspection Eyes General: appearance normal, both eyes and all related structures Neck Neck: normal visual inspection Chest Chest palpation & inspection: normal inspection of the chest Resp Effort & Inspection: normal respiratory effort Auscultation: clear to auscultation bilaterally Cardio Rate: regular rate Rhythm: regular rhythm GI Other: Large 6 cm diameter mid epigastric soft tissue mass that is not reducible. Umbilicus possibly very small hernia but no fascial defect palpable and completely nontender Well-healed transverse and oblique right upper quadrant incisions Other: Right groin solid intact. Testicles are descended bilaterally. Obvious immediately placed left inguinal hernia with fibrofatty tissue with some effort mostly reducible. Musc Cervical Spine: normal cervical lordosis Skin General: no rashes or lesions noted Neuro General: patient alert, patient awake and patient oriented x3 Extrem General: no calf tenderness Psych Appearance: grossly normal Assessment and Plan Assessment and Plan (1) Incarcerated ventral hernia: Status: Acute (2) Inguinal hernia of left side without obstruction or gangrene: Status: Acute (3) Umbilical hernia: Status: Acute Qualifiers: Obstruction and gangrene presence: without obstruction or gangrene Qualified Code(s): K42.9 - Umbilical hernia without obstruction or gangrene Plan: 87-year-old gentleman with 3 separate hernias. The umbilical hernia is small and completely asymptomatic. The left inguinal hernia requires significant effort to reduce and is symptomatic. The supraumbilical ventral hernia is nonreducible and progressively enlarging and symptomatic. I propose for the patient a combined open hernia repair with an open approach to the left groin and a Sherie type approach utilizing mesh. At the same setting a transverse incision over the incarcerated ventral hernia site with likely Ventralex mesh to style repair of that defect. I am not proposing for simultaneous umbilical hernia repair at that setting as that is mostly an imaging finding and not a clinically significant finding at this time. The patient had a stroke 2 months ago. He will be seeing Dr. Cholo Friedman tomorrow. I do not propose that we proceed with general anesthesia and his hernia repairs until it is felt safe from his neurologic standpoint. He has had an opportunity to ask and have questions answered. He is aware of benefit and risk and complications and alternatives. He is very much interested in getting the ventral and left groin hernias fixed. The patient is aware that he would need to be able to hold his clopidogrel therapy for at least 5 days pre and 5 days postoperatively. We likely would be able to maintain him on his low-dose aspirin therapy. With the separate incisions in the left groin and in the epigastric area there would be a slightly increased risk for bleeding. We will need to have medical review prior to us proceeding with surgical intervention. I appreciate the opportunity of assisting with the surgical care. Copy: Dr. Cholo Friedman and Laurita Aguilar, STOCK SORTER-C Bakari Moctezuma M.D., F.A.C.S I have examined the patient and the H&P has been reviewed. There are no clinical changes since date of exam. Bakari Moctezuma M.D., F.A.C.S.
--- NOTE | 2023-04-24 09:33 | DCINST_ITS ---
Discharge Instructions Procedure General Surgery Diet Discharge Diet: Light diet - advance as tolerated (if you have questions about your diet instructions, please talk to you doctor.) Activity Discharge Activity: May Not Drive (for 3-5 days or while taking narcotic pain medicine.) May shower in (days): 1 Lifting Restrictions: 10 pounds Dressing / Incision Call your doctor if your incision/area has: Continuous Slow Oozing, Sudden Increased Bleeding, Increased Pain/ Swelling, Increased Redness and Foul Smelling Discharge Call your doctor if you observe: Fever of 101 or Higher Suture Line Care: Avoid Pulling/Pushing and Avoid Pinching/Bending Additional Dressing/Incision Instructions:: Change or remove dressing in 4 days. Leave steri-strips in place for 1 week. If there are no bleeding issues you may resume your clopidogrel on Monday, April 26, 2023 Follow Up Care Please Follow Up With: Bakari Moctezuma MD When: Call [phone] to make an appointment to be seen in about 10 days. Test Results: Test results from this visit will be discussed in further detail at your follow- up appointment, if applicable. Discharge Plan Admission Primary Reason for Your Visit: Left inguinal hernia and ventral hernia Attending Provider: Bakari Moctezuma Primary Care Provider: Cholo Friedman Discharge Orders/Prescriptions Prescriptions: Continued ibuprofen 200 mg capsule 200 mg PO Q6H PRN (Reason: pain) Therems-M 1 TABLET tablet 1 tab PO DAILY Patient Comments: SUPPLEMENT terazosin 2 mg capsule 5 mg PO QHS Patient Comments: BLOOD PRESSURE atorvastatin 80 mg Tablet 80 mg PO QHS 30 Days Qty: 30 3RF sennosides-docusate sodium [Stool Softener-Stimulant Laxat] 8.6-50 mg Tablet 2 tab PO BID PRN PRN (Reason: Constipation) Qty: 0 0RF amlodipine 10 mg Tablet 10 mg PO DAILY 30 Days Qty: 30 2RF Rx Instructions: Hold for SBP less than 120 mmHg clopidogrel [Plavix] 75 mg tablet 75 mg PO DAILY 30 Days Qty: 30 2RF aspirin 81 mg Tablet,Chewable 81 mg PO BREAKFAST 30 Days Qty: 30 0RF Rx Instructions: 81 mg daily for 90 days along with Plavix 75 mg daily then aspirin monotherapy 325 mg daily. Referrals / Follow Up: Cholo Friedman MD [Primary Care Provider] - Disposition Disposition (needs filled in before D/C Order can be placed): Home, Self Care
[2023-04-24] MEDS: Lactated Ringers 1,000 ML 15 ML IV (10:19)
[2023-04-24] MEDS: Cefazolin 2 GM in 0.9% Normal Saline (100mL Bag) 100 ML IV (10:51)
[2023-04-24] MEDS: Lidocaine 1% (30 ml sdv) 30 ML Vial (12:34)
[2023-04-24] MEDS: Bupivacaine 0.5% PF 10 ML VIAL (12:34)
--- NOTE | 2023-04-24 12:34 | OP.PCM_ITS ---
Report of Operation Date of Procedure: 04/24/23 Pre-Operative Diagnosis: Incarcerated supraumbilical ventral hernia, umbilical hernia, left inguinal hernia Post-Operative Diagnosis: Incarcerated supraumbilical ventral hernia, umbilical hernia, left cord lipoma with direct inguinal hernia Surgery/Procedure Performed:: Supraumbilical ventral hernia and umbilical hernia repair with [address] mesh, reference [id number], lot number [id number], expiry date 09/11/2024 Sherie left inguinal herniorrhaphy with excision cord lipoma, Bard mesh pre shaped keyhole reference [id number], lot number [id number], expiry date 10/13/2027 Description of Surgical Findings:: Timeout informed consent was obtained. 87-year-old gentleman was taken to the operating placed on the table underwent general anesthesia. Ancef 2 g were given intravenously. The abdomen left groin sterilely prepped and draped Ioban use was well. Throughout the procedure 20 cc of 1% lidocaine mixed with 30 cc of 0.5% Marcaine was used as a local anesthetic. Skin sites were Delamr size. A supraumbilical transverse incision was created sharp dissection carried down through the subtendinous tissue. The incarcerated ventral hernia was identified the preperitoneal fatty tissue sac and contents carefully dissected free. The fascial defect area measured 3 cm. Then identified that almost concomitant with this almost like a pantaloon fashion the umbilical hernia was involved so I excised that sac and preperitoneal fatty contents as well. The umbilical hernia defect was 2 cm in diameter. The bridge between the 2 was approximately 2-1/2 cm. I elected to primarily close the umbilical defect transversely with simple sutures of 0 Nurolon. I then placed an [address] mesh into the ventral hernia site and slightly stick more inferiorly I secured the tails with 0 Nurolon and then approximated the fascia with simple sutures of 0 Nurolon capturing the anterior surface of the mesh. I felt that I had excellent positioning of the mesh in good approximation. The fascia was treated with local. The skin was closed with interrupted 4-0 Monocryl carefully approximating the skin to the fascia and then closing the skin with a running subicular 4-0 Monocryl. Attention was drawn to the left groin transverse incision was created after local was instilled a ilioinguinal nerve block performed electrocautery dissection performed external oblique identified as well as the external ring this was incised the inguinal nerve identified and protected circumferential control was obtained of the cord structures upon so doing a moderate size cord lipoma was identified. With electrocautery this was dissected free to the internal ring where it was secured with 0 Vicryl suture ligature. There was evidence of direct weakness of the inguinal floor. Having dissected structures free I now approximated the transversalis fascia to itself from the pubic tubercle to the internal ring imbricating and securing the direct defect. I placed a preshaped keyhole piece of Bard mesh wrapped around the internal ring secured it there with 3-0 Ethibond slightly trimmed the tails placed the tails between beneath the external oblique laterally and then I secured the mesh to the pubic tubercle shelving edge of Poupart's and aponeurosis of the internal and external oblique with multiple interrupted 3-0 Ethibond sutures. Excellent coverage was achieved. The external oblique was then approximated with running 3-0 Vicryl. Skin edges approximated running subicular 4 Monocryl. Steri-Strips Telfa OpSite dressings applied to both locations. Sponge and needle and instrum ent counts were reported the surgeon to be correct. Specimens include umbilical/ventral hernia sacs and content. Drains none. Blood loss minimal. The patient was taken to recovery room in satisfied condition without apparent complication Bakari Moctezuma M.D., F.A.C.S. Surgeon: Bakari Moctezuma Type of Anesthesia: General and Local Anesthesiologist: Juanjose Henderson
[2023-04-24] MEDS: Acetaminophen 325 MG Tablet 650 MG PO (14:04)
== END 2023-04-24 14:47 | disposition home or self-care (01) ==
LOC: SDC 09:15 → AC 09:15
PROVIDERS: PCP Internal Medicine; Referring Provider Surgery; Visit Provider Surgery
PROC: (CPT 49594; principal; 2023-04-24 10:45)
DX: K43.6 Other and unspecified ventral hernia with obstruction, without gangrene (principal); N18.31 Chronic kidney disease, stage 3a; K42.9 Umbilical hernia without obstruction or gangrene; K40.90 Unilateral inguinal hernia, without obstruction or gangrene, not specified as recurrent; G47.33 Obstructive sleep apnea (adult) (pediatric); D63.1 Anemia in chronic kidney disease; E78.5 Hyperlipidemia, unspecified; I12.9 Hypertensive chronic kidney disease with stage 1 through stage 4 chronic kidney disease, or unspecified chronic kidney disease; Z79.01 Long term (current) use of anticoagulants; Z79.82 Long term (current) use of aspirin; Z79.899 Other long term (current) drug therapy; Z86.73 Personal history of transient ischemic attack (TIA), and cerebral infarction without residual deficits; Z87.891 Personal history of nicotine dependence
CPT/HCPCS: 49594; 49591; 49505; 00830; 36415; 80048; 85027; 88302; 88304; 93005; J7120; C1781; J2405